=== PATIENT | female | born 1965 | race Caucasian/White ===

== ENCOUNTER → 2017-04-16 11:03 | Outpatient (POV) | payer OTHER, SELFPAY ==
[2017-04-16 11:18] VITALS: BP 142/78; PULSE 76; RESP 18; O2SAT 98; BMI 32.5
--- NOTE | 2017-04-16 11:35 | P.CONS_ITS ---
[facility] Pain Management SOAP Note Subjective:: Patient is a very pleasant 51-year-old white female that returns her pain clinic after receiving bilateral SI joint injections on 03/16/2017. Patient reports 1 week of significant relief in her bilateral hips. However, after this time her pain returned essentially in its entirety she describes the pain as constant, dull, aching in bilateral hips. She has extreme point tenderness upon examination over the bilateral SI joints. We discussed a repeat injection of the bilateral SI joints. She wishes to proceed. She rates her pain 6/10 Objective:: She is awake alert oriented ?3. In no acute distress. Flexion extension lumbar spine somewhat guarded secondary to pain. Deep tendon reflexes upper and lower extremities normal. Motor strength upper and lower extremities normal. There is no gross sensory deficit. Gait is normal. Assessment:: Bilateral sacroiliitis. Plan:: We will schedule the patient for repeat bilateral SI joint injections.
== END ==
PROVIDERS: Family Provider Emergency Medicine; PCP Emergency Medicine; Visit Provider Nurse Anesthetist, Certified Registered
DX: M46.1 Sacroiliitis, not elsewhere classified (principal)
CPT/HCPCS: 99212

== ENCOUNTER → 2017-05-11 09:38 | Day surgery (SDC) | payer OTHER, SELFPAY ==
[2017-05-11 10:29] VITALS: BP 141/77; PULSE 92; RESP 18; TEMP 36.6; O2SAT 95; BMI 32.5
--- NOTE | 2017-05-11 10:43 | HMH.PMPROC ---
- Procedure Date: 05/11/17 Time: 10:43 Anesthesiologist:: Archie Garduno MD Complications:: None Pre-procedure Diagnosis:: Sacroiliitis Post-procedure Diagnosis:: Same Indications for Procedure:: She is pleasant 51-year-old white female who we are treating for bilateral hip pain. She has had previous bilateral SI joint injections and has done well. Her pain is starting to come back. She has tenderness over both SI joints. Positive Claude's test bilaterally. We will do repeat bilateral SI joint injections today to give her some additional relief. Procedure Details:: B/L SI joint injection under fluoroscopy Informed consent was obtained and the risks and benefits of the procedure was explained to the patient. The patient was taken to the procedure room and placed prone on the procedure table. The patient was prepped using ChloraPrep. The skin and subcutaneous tissues overlying the SI joints were anesthetized using lidocaine. I placed a 22-gauge needle first in the left SI joint and second in the right SI joint. Needle placement was confirmed with dye. After this we injected 5 mL bupivacaine 0.25% and Depo-Medrol 40 mg into each SI joint. Patient tolerated the procedure well with no complication. Plan and Disposition:: We will follow-up with this patient in 2 weeks. We will reevaluate her symptoms at that time.
[2017-05-11 10:45] VITALS: BP 133/77; PULSE 78; RESP 20; O2SAT 99
[2017-05-11 10:46] VITALS: BP 135/88; PULSE 80; RESP 20; O2SAT 99
[2017-05-11 11:06] VITALS: BP 115/59; PULSE 77; RESP 18; TEMP 36.6; O2SAT 96
== END ==
PROVIDERS: Family Provider Emergency Medicine; PCP Emergency Medicine; Visit Provider Anesthesiology
DX: M46.1 Sacroiliitis, not elsewhere classified (principal)
CPT/HCPCS: 27096; G0260; J1030; Q9966

== ENCOUNTER → 2017-05-21 11:04 | Outpatient (REF) | payer OTHER, SELFPAY ==
[2017-05-21 14:00] LABS: Amphetamine/Metha Screen,Urine Negative ng/mL (<1000); Barbiturates Screen,Urine Negative ng/mL (<200); Benzodiazepines Screen,Urine Negative ng/mL (200); Cannabinoid Screen,Urine Positive ng/mL (<50); Cocaine Screen,Urine Negative ng/g (<300); Methadone Screen,Urine Negative ng/mL (<300); Opiate Screen,Urine Positive ng/mL (<300); Phencyclidine Screen,Urine Negative ng/mL (<25)
== END ==
LOC: LAB 11:04
PROVIDERS: Visit Provider Emergency Medicine
DX: Z79.899 Other long term (current) drug therapy (principal)
CPT/HCPCS: 80305

== ENCOUNTER → 2017-06-20 13:46 | Outpatient (REF) | payer OTHER, SELFPAY ==
[2017-06-20 18:44] LABS: Amphetamine/Metha Screen,Urine Negative ng/mL (<1000); Barbiturates Screen,Urine Negative ng/mL (<200); Benzodiazepines Screen,Urine Negative ng/mL (200); Cannabinoid Screen,Urine Positive ng/mL (<50); Cocaine Screen,Urine Negative ng/g (<300); Methadone Screen,Urine Negative ng/mL (<300); Opiate Screen,Urine Positive ng/mL (<300); Phencyclidine Screen,Urine Negative ng/mL (<25)
== END ==
LOC: LAB 13:46
PROVIDERS: Visit Provider Emergency Medicine
DX: Z79.899 Other long term (current) drug therapy (principal)
CPT/HCPCS: 80305

== ENCOUNTER → 2017-07-18 08:15 | Outpatient (REF) | payer OTHER, SELFPAY ==
[2017-07-18 13:38] LABS: Amphetamine/Metha Screen,Urine Negative ng/mL (<1000); Barbiturates Screen,Urine Negative ng/mL (<200); Benzodiazepines Screen,Urine Negative ng/mL (200); Cannabinoid Screen,Urine Positive ng/mL (<50); Cocaine Screen,Urine Negative ng/g (<300); Methadone Screen,Urine Negative ng/mL (<300); Opiate Screen,Urine Positive ng/mL (<300); Phencyclidine Screen,Urine Negative ng/mL (<25)
== END ==
LOC: LAB 08:15
PROVIDERS: Visit Provider Emergency Medicine
DX: Z79.899 Other long term (current) drug therapy (principal)
CPT/HCPCS: 80305

== ENCOUNTER → 2017-07-27 09:15 | Outpatient (CLI) | payer OTHER, SELFPAY ==
--- NOTE | 2017-07-27 09:38 | XR_ITS ---
XR hand RT min 3V COMPARISON: None HISTORY: Right hand pain TECHNIQUE: AP lateral and oblique views FINDINGS: The carpal bones appear intact. The metacarpals and all phalanges appear intact with no evidence of recent or old fracture. There is minor narrowing of the radiocarpal joint and there is a negative ulnar variance which can contribute to wrist pain. IMPRESSION: Grossly negative right hand, minor arthritic change of the radiocarpal joint along with negative ulnar variance
--- NOTE | 2017-07-27 09:38 | XR_ITS ---
XR shoulder RT min 2V COMPARISON: MRI scan right shoulder 02/20/2017 HISTORY: Right shoulder pain TECHNIQUE: 3 views right shoulder FINDINGS: The lateral clavicle is intact. There is a generally changes AC joint with minimal spurring superiorly and inferiorly. Humeral head and glenoid appear normal. There are no soft tissue calcifications. IMPRESSION: Mild degenerative change of the AC joint no other significant abnormality noted
[2017-07-27 09:39] LABS: Basophils # 0.1 K/mm3 (0-0.2); Basophils % 0.7 % (0.1-2.0); Eosinophils # 0.4 K/mm3 (0.0-0.4); Eosinophils % 3.3 % (0.1-12.0); Hematocrit 40.3 % (37.0-47.0); Hemoglobin 13.4 g/dL (12.2-16.2); Lymphocytes # 2.5 K/mm3 (0.7-4.5); Mean Corpuscular HGB Conc 33.3 g/dL (31.8-35.4); Mean Corpuscular Hemoglobin 31.5 pg (27.0-31.2); Mean Corpuscular Volume 94.6 fl (81-99); Mean Platelet Volume 6.5 fl (7.4-10.4); Monocytes # 0.6 K/mm3 (0.1-1.0); Monocytes % 4.9 % (1.7-9.3); Neutrophils # 7.7 K/mm3 (1.8-7.8); Neutrophils % 69.1 % (37.0-80.0); Platelet Count 487 K/mm3 (142-424); Red Blood Count 4.26 M/mm3 (4.20-5.40); Red Cell Distribution Width 12.8 % (11.5-17.5); White Blood Count 11.2 K/mm3 (4.8-10.8)
--- NOTE | 2017-07-27 09:41 | XR_ITS ---
XR chest 2V COMPARISON: PA and lateral chest 06/24/2009 HISTORY: Smoking history TECHNIQUE: PA and lateral chest FINDINGS: Borderline emphysematous changes seen with mild hyperexpansion lung lopez and flattening of the hemidiaphragms. There are subtle increased bronchovascular markings in the right lower lobe, the remainder lung lopez are clear. Cardiac size is normal and the vascularity is normal. IMPRESSION: Borderline COPD, vomiting suggesting minimal chronic bronchitis right lower lobe
[2017-07-27 10:39] LABS: Anion Gap 14.6 mEq/L (5-15); Blood Urea Nitrogen 15 mg/dL (7-18); Carbon Dioxide 28 mmol/L (21.0-32.0); Chloride 98 mmol/L (98-107); Estimated Glomerular Filt Rate 105 ml/min (>60); GFR (African American) 128 ML/MIN (>60); Glucose 93 mg/dL (74-106); Potassium 4.6 mmoL/L (3.5-5.1); Sodium 136 mmol/L (136-145)
[2017-07-27 10:46] LABS: HCG,Quantitative 1 mIU/mL
== END ==
PROVIDERS: Visit Provider Orthopaedic Surgery
DX: Z01.818 Encounter for other preprocedural examination (principal); M25.511 Pain in right shoulder; M79.641 Pain in right hand
CPT/HCPCS: 36415; 71046; 73030; 73130; 80048; 84702; 85025; 93005

== ENCOUNTER → 2017-08-17 09:31 | Outpatient (CLI) | payer OTHER, SELFPAY ==
[2017-08-17 14:13] LABS: Amphetamine/Metha Screen,Urine Negative ng/mL (<1000); Barbiturates Screen,Urine Negative ng/mL (<200); Benzodiazepines Screen,Urine Negative ng/mL (200); Cannabinoid Screen,Urine Negative ng/mL (<50); Cocaine Screen,Urine Negative ng/g (<300); Methadone Screen,Urine Negative ng/mL (<300); Opiate Screen,Urine Positive ng/mL (<300); Phencyclidine Screen,Urine Negative ng/mL (<25)
[2017-08-17 14:18] LABS: Basophils # 0.1 K/mm3 (0-0.2); Basophils % 0.6 % (0.1-2.0); Eosinophils # 0.4 K/mm3 (0.0-0.4); Eosinophils % 3.4 % (0.1-12.0); Hematocrit 37.2 % (37.0-47.0); Hemoglobin 12.3 g/dL (12.2-16.2); Lymphocytes # 2.7 K/mm3 (0.7-4.5); Lymphocytes % 25.4 K/mm3 (10-50); Mean Corpuscular HGB Conc 33.1 g/dL (31.8-35.4); Mean Corpuscular Hemoglobin 31.6 pg (27.0-31.2); Mean Corpuscular Volume 95.4 fl (81-99); Mean Platelet Volume 7.8 fl (7.4-10.4); Monocytes # 0.6 K/mm3 (0.1-1.0); Monocytes % 5.2 % (1.7-9.3); Neutrophils # 6.9 K/mm3 (1.8-7.8); Neutrophils % 65.4 % (37.0-80.0); Platelet Count 560 K/mm3 (142-424); Red Cell Distribution Width 12.9 % (11.5-17.5); White Blood Count 10.5 K/mm3 (4.8-10.8)
[2017-08-17 14:26] LABS: Alanine Aminotransferase 20 U/L (12-78); Albumin Level 3.5 gm/dL (3.4-5.0); Alkaline Phosphatase 122 U/L (46-116); Anion Gap 15.5 mEq/L (5-15); Aspartate Amino Transferase 19 U/L (15-37); Bilirubin,Total 0.2 mg/dL (0.2-1.0); Blood Urea Nitrogen 10 mg/dL (7-18); Calcium 10.1 mg/dL (8.5-10.1); Carbon Dioxide 26 mmol/L (21.0-32.0); Chloride 103 mmol/L (98-107); Chol/HDL Ratio 4.2 (1-3.5); Cholesterol 204 mg/dL (140-200); Creatinine,Serum 0.68 mg/dL (0.55-1.02); Estimated Glomerular Filt Rate 91 ml/min (>60); Free T4 (Free Thyroxine) 1.07 ng/dl (0.76-1.46); GFR (African American) 110 ML/MIN (>60); Globulin 3.4 gm/dl (1.3-3.2); Glucose 94 mg/dL (74-106); HDL Cholesterol 49 mg/dL (29-89); LDL Cholesterol 127 mg/dL (0-130); Potassium 4.5 mmoL/L (3.5-5.1); Sodium 140 mmol/L (136-145); Thyroid Stimulating Hormone 1.47 uIU/ml (0.358-3.740); Total Protein,Serum 6.9 gm/dL (6.4-8.2); Triglycerides 139 mg/dL (30-200); VLDL Cholesterol 28 mg/dL (0-40)
== END ==
PROVIDERS: Visit Provider Emergency Medicine
DX: I10 Essential (primary) hypertension (principal); Z79.891 Long term (current) use of opiate analgesic
CPT/HCPCS: 80053; 80061; 80305; 84439; 84443; 85025

== ENCOUNTER → 2017-09-14 10:50 | Outpatient (CLI) | payer OTHER, SELFPAY ==
[2017-09-14 19:24] LABS: Amphetamine/Metha Screen,Urine Negative ng/mL (<1000); Barbiturates Screen,Urine Negative ng/mL (<200); Benzodiazepines Screen,Urine Negative ng/mL (200); Cannabinoid Screen,Urine Negative ng/mL (<50); Cocaine Screen,Urine Negative ng/g (<300); Methadone Screen,Urine Negative ng/mL (<300); Opiate Screen,Urine Positive ng/mL (<300); Phencyclidine Screen,Urine Negative ng/mL (<25)
== END ==
PROVIDERS: Visit Provider Emergency Medicine
DX: Z79.899 Other long term (current) drug therapy (principal)
CPT/HCPCS: 80305

== ENCOUNTER 2017-10-02 08:49 | Outpatient (RCR) | payer OTHER, SELFPAY ==
--- NOTE | 2017-10-02 09:45 | HMH.OTOPEV ---
OT Inpatient Evaluation Rehab OT Outpatient Eval Start: 10/02/17 09:31 Freq: Status: Active Protocol: Document 10/02/17 09:32 TFRY (Rec: 10/02/17 09:43 TFRY [id number]) Electronically Signed By Lisa Clemons, OT 10/02/17 09:32 Outpatient Therapy Subjective History Subjective History THIS IS A 52 YEAR OLD RIGHT HANDED FEMALE REFERRED TO OCCUPATIONAL THERAPY PATIENT IS S/P ARTHROSCOPIC RCR, SAD, DCE, AND BICEPS TENODESIS OF RIGHT SHOULDER. PATIENT REPORTS THAT SHE HAD SURGERY ON AUGUST 06, 2017. PATIENT REPORTS THAT SHE INJURIED HER SHOULDER APPROXIMATELY 1 YEAR AGO. Chief Complaint Pain Symptom Type Ache Sharp Dull Symptoms Relieved By Rest/Positioning Heat Ice Symptoms Aggravated By Physical Activity Prior Functional Limitations None Current Functional Limitations Reaching Lifting Housework Dressing Sleeping Symptom Description Activity Dependent Level of pain today (0-10) 2 Pain scale - at its best (0-10) 1 Pain scale - at its worst (0-10) 8 Shoulder/Elbow Eval Shoulder Objective Measurements Palpation Tenderness tenderness shoulder exam standard right Shoulder Palpation Findings Tenderness Shoulder ROM Right Shoulder ROM Limitations Pain Shoulder Abduction Active Range of 60 Motion (degrees) Shoulder Abduction Passive Range of 70 Motion (degrees) Shoulder Flexion Active Range of Motion 60 (degrees) Query Text: Shoulder Flexion Passive Range of Motion 115 (degrees) Shoulder External Rotation Active Range 25 of Motion (degrees) Shoulder External Rotation Passive Range 25 of Motion (degrees) Shoulder Internal Rotation Active Range WFL of Motion (degrees) Shoulder Internal Rotation Passive Range 0 of Motion (degrees) Shoulder Extension Active Range of 30 Motion (degrees) pain with active ROM shoulder exam right standard pain with passive ROM shoulder exam right standard decreased ROM shoulder exam standard right Shoulder MMT Shoulder Strength Reason Not Measured Orthopedic Precautions E
== END 2017-10-02 08:50 | disposition home or self-care (01) ==
LOC: OT 08:49
PROVIDERS: Family Provider Emergency Medicine; PCP Emergency Medicine; Visit Provider Orthopaedic Surgery
DX: S46.011A Strain of muscle(s) and tendon(s) of the rotator cuff of right shoulder, initial encounter (principal)
CPT/HCPCS: 97165

== ENCOUNTER 2017-10-02 08:55 | Outpatient (RCR) | payer OTHER, SELFPAY | END 2017-10-03 15:05 | disposition home or self-care (01) | LOC: OT 08:55 | PROVIDERS: Family Provider Emergency Medicine; PCP Emergency Medicine; Visit Provider Orthopaedic Surgery | DX: G56.01 Carpal tunnel syndrome, right upper limb (principal) | CPT/HCPCS: 97760 ==

== ENCOUNTER → 2017-10-09 08:57 | Outpatient (POV) | payer OTHER, SELFPAY ==
[2017-10-09 09:33] VITALS: BP 142/73; PULSE 84; RESP 18; O2SAT 97; BMI 35.6
--- NOTE | 2017-10-09 13:49 | HMH.PAINSOAP ---
[facility] Pain Management SOAP Note Subjective:: She is a pleasant 52-year-old white female who presents today for follow-up. Patient had bilateral SI joint injections in the past she states she did not get much relief from that however she had recent shoulder surgery by Dr. Azevedo and she starts PT today. Patient states that a lot of her pain is up there however she is having low back and leg pain with numbness and tingling. Patient would like to try an epidural steroid injection to see if this would help with her pain. I believe that this would beneficial for her. Patient also having bilateral knee pain and was interested in the potential compounding cream to help relieve that. Patient is not on any anticoagulation therapy patient is currently in physical therapy. Patient does receive [place] 5 mg 1 p.o. twice daily and gabapentin 800 mg 1 p.o. 4 times daily from her primary care physician. Patient does have an MRI showing degenerative disc disease and bulging disks. Patient rates her pain a 6 out of 10 today. ROS General: no recent weight change, no fever, no sleep disturbances Respiratory: no cough, no shortness of air, no recurring pulmonary infections Cardiovascular/Peripheral Vascular: No chest pain, No palpitations, no edema, no shortness of breath. Gastrointestinal: no incontinence, normal bowel movements reported Genitourinary: no incontinence Musculoskeletal: Shoulder pain, back pain, leg pain Psychiatric: normal mood/ affect Neurological: [denies weakness in extremities], [denies balance issues] Objective:: Physical Exam General: Alert and oriented x3, no acute distress, pleasant and cooperative, [on room air] Lungs: Resps E/U, Symmetrical chest expansion, Eyes: PERRL Musculoskeletal: Flexion and extension of lumbar spine somewhat guarded secondary to pain, deep tendon reflexes normal, strength in upper and lower extremities [5/5], slightly antalgic gait noted, positive straight leg raise test bilaterally at 30? Neurological: speech clear, face burler equal, no gross sensory deficits Assessment:: Degenerative disc disease of the lumbar spine with lumbar radiculopathy, sacroiliitis Plan:: We will schedule an L4-L5 lumbar epidural steroid injection for this patient I believe that it would be beneficial. Patient's tried and failed anti-inflammatories, medications, physical therapy, massage therapy. Patient is not on any anticoagulation therapy. Patient is still continue to do home stretching routine. I will follow-up with the patient after her injection we will reassess her symptoms at that time. This note was dictated using voice recognition software and may contain errors or omissions
--- NOTE | 2017-10-09 13:52 | P.CONS_ITS ---
[facility] Pain Management SOAP Note Subjective:: She is a pleasant 52-year-old white female who presents today for follow-up. Patient had bilateral SI joint injections in the past she states she did not get much relief from that however she had recent shoulder surgery by Dr. Azevedo and she starts PT today. Patient states that a lot of her pain is up there however she is having low back and leg pain with numbness and tingling. Patient would like to try an epidural steroid injection to see if this would help with her pain. I believe that this would beneficial for her. Patient also having bilateral knee pain and was interested in the potential compounding cream to help relieve that. Patient is not on any anticoagulation therapy patient is currently in physical therapy. Patient does receive [place] 5 mg 1 p.o. twice daily and gabapentin 800 mg 1 p.o. 4 times daily from her primary care physician. Patient does have an MRI showing degenerative disc disease and bulging disks. Patient rates her pain a 6 out of 10 today. ROS General: no recent weight change, no fever, no sleep disturbances Respiratory: no cough, no shortness of air, no recurring pulmonary infections Cardiovascular/Peripheral Vascular: No chest pain, No palpitations, no edema, no shortness of breath. Gastrointestinal: no incontinence, normal bowel movements reported Genitourinary: no incontinence Musculoskeletal: Shoulder pain, back pain, leg pain Psychiatric: normal mood/ affect Neurological: [denies weakness in extremities], [denies balance issues] Objective:: Physical Exam General: Alert and oriented x3, no acute distress, pleasant and cooperative, [ on room air] Lungs: Resps E/U, Symmetrical chest expansion, Eyes: PERRL Musculoskeletal: Flexion and extension of lumbar spine somewhat guarded secondary to pain, deep tendon reflexes normal, strength in upper and lower extremities [5/5], slightly antalgic gait noted, positive straight leg raise test bilaterally at 30? Neurological: speech clear, fructose loader equal, no gross sensory deficits Assessment:: Degenerative disc disease of the lumbar spine with lumbar radiculopathy, sacroiliitis Plan:: We will schedule an L4-L5 lumbar epidural steroid injection for this patient I believe that it would be beneficial. Patient's tried and failed anti- inflammatories, medications, physical therapy, massage therapy. Patient is not on any anticoagulation therapy. Patient is still continue to do home stretching routine. I will follow-up with the patient after her injection we will reassess her symptoms at that time. This note was dictated using voice recognition software and may contain errors or omissions
== END ==
PROVIDERS: Family Provider Emergency Medicine; PCP Emergency Medicine; Visit Provider Clinical Nurse Specialist Family Health
DX: M46.1 Sacroiliitis, not elsewhere classified (principal); M54.16 Radiculopathy, lumbar region
CPT/HCPCS: 99212

== ENCOUNTER → 2017-10-15 11:08 | Outpatient (REF) | payer OTHER, SELFPAY ==
[2017-10-15 14:03] LABS: Amphetamine/Metha Screen,Urine Negative ng/mL (<1000); Barbiturates Screen,Urine Negative ng/mL (<200); Benzodiazepines Screen,Urine Negative ng/mL (<200); Cannabinoid Screen,Urine Positive ng/mL (<50); Cocaine Screen,Urine Negative ng/mL (<300); Methadone Screen,Urine Negative ng/mL (<300); Opiate Screen,Urine Positive ng/mL (<300); Phencyclidine Screen,Urine Negative ng/mL (<25)
== END ==
LOC: LAB 11:08
PROVIDERS: Visit Provider Emergency Medicine
DX: Z79.899 Other long term (current) drug therapy (principal)
CPT/HCPCS: 80305

== ENCOUNTER → 2017-10-23 11:27 | Outpatient (CLI) | payer OTHER, SELFPAY ==
--- NOTE | 2017-10-23 11:29 | XR_ITS ---
XR wrist LT w scaphoid HISTORY: ITS.REASON: pain ORDERING PHYSICIAN: Sera Lake PATIENT AGE: 52 years COMPARISON: None FINDINGS: No fracture or dislocation. No lytic or blastic change. There is normal mineralization.. 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 Otherwise the carpal bones appear intact and especially the the distal radius and ulna appear normal and the soft tissues are normal. Navicular appears normal. 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
== END ==
PROVIDERS: PCP Nurse Practitioner Family; Visit Provider Nurse Practitioner Family
DX: M25.532 Pain in left wrist (principal)
CPT/HCPCS: 73110

== ENCOUNTER → 2017-10-28 10:50 | Outpatient (CLI) | payer OTHER, SELFPAY ==
[2017-10-28 14:19] LABS: Uric Acid 7.9 mg/dL (2.6-7.2)
== END ==
PROVIDERS: Visit Provider Nurse Practitioner Family
DX: M25.532 Pain in left wrist (principal)
CPT/HCPCS: 36415; 84550

== ENCOUNTER → 2017-11-13 11:18 | Outpatient (REF) | payer OTHER, SELFPAY ==
[2017-11-13 14:09] LABS: Amphetamine/Metha Screen,Urine Negative ng/mL (<1000); Barbiturates Screen,Urine Negative ng/mL (<200); Benzodiazepines Screen,Urine Negative ng/mL (<200); Cannabinoid Screen,Urine Positive ng/mL (<50); Cocaine Screen,Urine Negative ng/mL (<300); Methadone Screen,Urine Negative ng/mL (<300); Opiate Screen,Urine Positive ng/mL (<300); Phencyclidine Screen,Urine Negative ng/mL (<25)
== END ==
LOC: LAB 11:18
PROVIDERS: Visit Provider Emergency Medicine
DX: Z79.899 Other long term (current) drug therapy (principal)
CPT/HCPCS: 80305

== ENCOUNTER → 2017-12-14 09:26 | Outpatient (REF) | payer OTHER, SELFPAY ==
[2017-12-14 18:52] LABS: Amphetamine/Metha Screen,Urine Negative ng/mL (<1000); Barbiturates Screen,Urine Negative ng/mL (<200); Benzodiazepines Screen,Urine Negative ng/mL (<200); Cannabinoid Screen,Urine Positive ng/mL (<50); Cocaine Screen,Urine Negative ng/mL (<300); Methadone Screen,Urine Negative ng/mL (<300); Opiate Screen,Urine Positive ng/mL (<300); Phencyclidine Screen,Urine Negative ng/mL (<25)
== END ==
LOC: LAB 09:26
PROVIDERS: Visit Provider Emergency Medicine
DX: Z79.899 Other long term (current) drug therapy (principal)
CPT/HCPCS: 80305

== ENCOUNTER → 2017-12-25 10:09 | Outpatient (POV) | payer OTHER, SELFPAY ==
[2017-12-25 10:38] VITALS: BP 152/87; PULSE 76; RESP 76; TEMP 36.5; O2SAT 97; BMI 35.2
--- NOTE | 2017-12-25 11:07 | HMH.PAINSOAP ---
[facility] Pain Management SOAP Note Subjective:: Patient is a pleasant 52-year-old white female who presents today for follow-up after lumbar epidural steroid injection. Patient did not have any relief of this. Patient states her back pain is an 8 out of 10 today. Patient is currently on [place] and gabapentin from her primary care physician. Patient does not have any updated MRI imaging. I do believe that a new MRI may be beneficial given her increase in pain. ROS General: no recent weight change, no fever, no sleep disturbances Respiratory: no cough, no shortness of air, no recurring pulmonary infections Cardiovascular/Peripheral Vascular: No chest pain, No palpitations, no edema, no shortness of breath. Gastrointestinal: no incontinence, normal bowel movements reported Genitourinary: no incontinence Musculoskeletal: Back pain, leg pain Psychiatric: normal mood/ affect Neurological: [denies weakness in extremities], [denies balance issues] Objective:: Physical Exam General: Alert and oriented x3, no acute distress, pleasant and cooperative, [on room air] Lungs: Resps E/U, Symmetrical chest expansion Eyes: PERRL Musculoskeletal: Flexion and extension of lumbar spine somewhat guarded secondary to pain, deep tendon reflexes normal, strength in upper and lower extremities [5/5], slightly antalgic gait noted, bilateral straight leg raise test positive at 30? Neurological: speech clear, electron beam photo mask maker equal, no gross sensory deficits Assessment:: Degenerative disc disease lumbar spine with radiculopathy Plan:: We will send the patient for an updated MRI to determine any new pathology. She may be in need of a surgical consult. I will follow-up with her after her MRI. This note was dictated using voice recognition software and may contain errors or omissions
--- NOTE | 2017-12-25 11:10 | P.CONS_ITS ---
[facility] Pain Management SOAP Note Subjective:: Patient is a pleasant 52-year-old white female who presents today for follow-up after lumbar epidural steroid injection. Patient did not have any relief of this. Patient states her back pain is an 8 out of 10 today. Patient is currently on [place] and gabapentin from her primary care physician. Patient does not have any updated MRI imaging. I do believe that a new MRI may be beneficial given her increase in pain. ROS General: no recent weight change, no fever, no sleep disturbances Respiratory: no cough, no shortness of air, no recurring pulmonary infections Cardiovascular/Peripheral Vascular: No chest pain, No palpitations, no edema, no shortness of breath. Gastrointestinal: no incontinence, normal bowel movements reported Genitourinary: no incontinence Musculoskeletal: Back pain, leg pain Psychiatric: normal mood/ affect Neurological: [denies weakness in extremities], [denies balance issues] Objective:: Physical Exam General: Alert and oriented x3, no acute distress, pleasant and cooperative, [on room air] Lungs: Resps E/U, Symmetrical chest expansion Eyes: PERRL Musculoskeletal: Flexion and extension of lumbar spine somewhat guarded secondary to pain, deep tendon reflexes normal, strength in upper and lower extremities [5/5], slightly antalgic gait noted, bilateral straight leg raise test positive at 30? 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 She may be in need of a surgical consult. I will follow-up with her after her MRI. This note was dictated using voice recognition software and may contain errors or omissions
== END ==
PROVIDERS: Family Provider Emergency Medicine; PCP Nurse Practitioner Family; Visit Provider Clinical Nurse Specialist Family Health
DX: M51.16 Intervertebral disc disorders with radiculopathy, lumbar region (principal)
CPT/HCPCS: 99202

== ENCOUNTER → 2018-01-01 07:41 | Outpatient (CLI) | payer OTHER, SELFPAY ==
--- NOTE | 2018-01-01 07:50 | MR_ITS ---
MR lumbar spine wo con, MR 3-d myelogram/MRCP HISTORY: LBP but worse on the RT side. Bilateral leg pain, numbness, and tingling. ITS.REASON: BACK PAIN ORDERING PHYSICIAN: Gena Wadsworth PATIENT AGE: 52 years Comparison: MRI 01-05-17 TECHNIQUE: Standard multiplanar multiecho sequences are performed without contrast. 3-D MIP and myelographic images are also rendered and reviewed FINDINGS: Normal alignment. The spinal cord ends at the L1 level. T11-T12: Mild degenerative disc disease with mild facet and ligamentum flavum hypertrophy and minimal right lateral recess narrowing as before. T12-L1: Unremarkable. L1-L2: Unremarkable. L2-L3: Minimal endplate irregularity with minimal bulging of the disc anteriorly. L3-L4: Unremarkable. L4-5: Mild concentric bulging disc with minimal broad-based central disc protrusion slightly eccentric toward the right with a small posterior annular fissure. This does abut the injury aspect of the right L5 nerve root. There is some mild facet and ligamentum flavum hypertrophy with small amount fluid in the facet joint on the left at this level. There is mild bilateral foraminal narrowing. L5-S1: Degenerative disc disease with bulging disc eccentric towards the right along with facet and ligamentum flavum hypertrophy with moderate to severe right-sided foraminal narrowing and moderate left foraminal narrowing. Right lateral recess narrowing is also present from facet hypertrophic change and the bulging disc abutting the right S1 nerve root anteriorly. No extruded herniated disc are evident. No canal stenosis. IMPRESSION: 1. Multilevel lumbar spondylosis as described above. 2. L4-5: Mild concentric bulging disc with minimal broad-based central disc protrusion slightly eccentric toward the right with a small posterior annular fissure. This does abut the injury aspect of the right L5 nerve root. There is some mild facet and ligamentum flavum hypertrophy with small amount fluid in the facet joint on the left at this level. There is mild bilateral foraminal narrowing. 3. L5-S1: Degenerative disc disease with bulging disc eccentric towards the right with small broad-based right paracentral disc protrusion along with facet and ligamentum flavum hypertrophy with moderate to severe right-sided foraminal narrowing and moderate left foraminal narrowing. Right lateral recess narrowing is also present from facet hypertrophic change and the bulging disc abutting the right S1 nerve root anteriorly. 4. Overall no significant change compared to the previous exam
== END ==
PROVIDERS: Family Provider Emergency Medicine; PCP Nurse Practitioner Family; Visit Provider Clinical Nurse Specialist Family Health
DX: M54.5 Low back pain (principal)
CPT/HCPCS: 72148; 76376

== ENCOUNTER → 2018-01-08 10:19 | Outpatient (POV) | payer OTHER, SELFPAY ==
[2018-01-08 10:31] VITALS: BP 170/83; PULSE 81; RESP 18; O2SAT 98; BMI 35.2
--- NOTE | 2018-01-08 10:56 | P.CONS_ITS ---
[facility] Pain Management SOAP Note Subjective:: Is a pleasant 52-year-old white female who presents today for follow-up after new MRI. Patient has multilevel lumbar spondylosis and some bulging disks. Patient and I discussed medial branch blocks. Patient has had epidurals with not a lot of success. Patient states that any twisting motion makes her pain worse. Patient has not seen a neurosurgeon. Patient is receiving medication from her primary care physician. She rates her pain a 6 out of 10 today. ROS General: no recent weight change, no fever, no sleep disturbances Respiratory: no cough, no shortness of air, no recurring pulmonary infections Cardiovascular/Peripheral Vascular: No chest pain, No palpitations, no edema, no shortness of breath. Gastrointestinal: no incontinence, normal bowel movements reported Genitourinary: no incontinence Musculoskeletal: Back pain Psychiatric: normal mood/ affect Neurological: [denies weakness in extremities], [denies balance issues] Objective:: Physical Exam General: Alert and oriented x3, no acute distress, pleasant and cooperative, [on room air] Lungs: Resps E/U, Symmetrical chest expansion, Eyes: PERRL Musculoskeletal: Flexion and extension of lumbar spine somewhat guarded secondary to pain, deep tendon reflexes normal, strength in upper and lower extremities [5/5], [abnormal gait noted] positive Kemps test Neurological: speech clear, biofuels plant manager equal, no gross sensory deficits Assessment:: Degenerative disc disease lumbar spine with lumbar spondylosis Plan:: We will set up the patient to be evaluated by Dr. Chance we will also ensure that she has refills on her compounding cream. We will also set her up for a medial branch block at L3-L4 L4-L5 L5-S1 bilaterally. I will follow-up with the patient after her injection. Patient is tried and failed other conservative measures. Patient also doing a home stretching routine. Patient is not on any blood thinners. This note was dictated using voice recognition software and may contain errors or omissions
== END ==
PROVIDERS: Family Provider Emergency Medicine; PCP Nurse Practitioner Family; Visit Provider Clinical Nurse Specialist Family Health
DX: M51.36 Other intervertebral disc degeneration, lumbar region (principal); M47.896 Other spondylosis, lumbar region
CPT/HCPCS: 99213

== ENCOUNTER → 2018-01-11 08:55 | Outpatient (REF) | payer OTHER, SELFPAY ==
[2018-01-11 18:35] LABS: Amphetamine/Metha Screen,Urine Negative ng/mL (<1000); Barbiturates Screen,Urine Negative ng/mL (<200); Benzodiazepines Screen,Urine Negative ng/mL (<200); Cannabinoid Screen,Urine Positive ng/mL (<50); Cocaine Screen,Urine Negative ng/mL (<300); Methadone Screen,Urine Negative ng/mL (<300); Opiate Screen,Urine Positive ng/mL (<300); Phencyclidine Screen,Urine Negative ng/mL (<25)
== END ==
LOC: LAB 08:55
PROVIDERS: Visit Provider Emergency Medicine
DX: Z79.899 Other long term (current) drug therapy (principal)
CPT/HCPCS: 80305

== ENCOUNTER → 2018-02-11 13:48 | Outpatient (CLI) | payer OTHER, SELFPAY ==
[2018-02-11 15:49] LABS: Amphetamine/Metha Screen,Urine Negative ng/mL (<1000); Barbiturates Screen,Urine Negative ng/mL (<200); Benzodiazepines Screen,Urine Negative ng/mL (<200); Cannabinoid Screen,Urine Positive ng/mL (<50); Cocaine Screen,Urine Negative ng/mL (<300); Methadone Screen,Urine Negative ng/mL (<300); Opiate Screen,Urine Positive ng/mL (<300); Phencyclidine Screen,Urine Negative ng/mL (<25)
== END ==
PROVIDERS: PCP Emergency Medicine; Visit Provider Emergency Medicine
DX: Z79.899 Other long term (current) drug therapy (principal)
CPT/HCPCS: 80305

== ENCOUNTER → 2018-03-12 08:29 | Outpatient (POV) | payer OTHER, SELFPAY ==
[2018-03-12 08:50] VITALS: BP 115/58; PULSE 78; RESP 18; O2SAT 98; BMI 35.5
--- NOTE | 2018-03-12 09:02 | P.CONS_ITS ---
[facility] Pain Management SOAP Note Subjective:: Is a pleasant 52-year-old white female who presents today for follow-up after medial branch blocks. Patient has not had good relief with any of her injective therapy. Patient and I had a long discussion in regards to neuro stimulation. Patient is interested in following up with this. Patient would like to be more functional. Patient is also utilizing a compound cream that she states helps her greatly. Patient rates her pain a 9 out of 10 today mostly in her low back and down her legs. ROS General: no recent weight change, no fever, no sleep disturbances Respiratory: no cough, no shortness of air, no recurring pulmonary infections Cardiovascular/Peripheral Vascular: No chest pain, No palpitations, no edema, no shortness of breath. Gastrointestinal: no incontinence, normal bowel movements reported Genitourinary: no incontinence Musculoskeletal: Back pain, leg pain Psychiatric: normal mood/ affect Neurological: [denies weakness in extremities], [denies balance issues] Objective:: Physical Exam General: Alert and oriented x3, no acute distress, pleasant and cooperative, [on room air] Lungs: Resps E/U, Symmetrical chest expansion, Eyes: PERRL Musculoskeletal: Flexion and extension of lumbar spine somewhat guarded secondary to pain, deep tendon reflexes normal, strength in upper and lower extremities [5/5], [abnormal gait noted] Neurological: speech clear, filament cutter equal, no gross sensory deficits Assessment:: Lumbar degenerative disc disease with lumbar spondylosis and facet arthropathy Plan:: We will start the process and have a neurostimulator trial. I discussed this with the patient and gave her information in regards to it. I will follow-up with her after her trial. This note was dictated using voice recognition software and may contain errors or omissions
== END ==
PROVIDERS: PCP Emergency Medicine; Visit Provider Clinical Nurse Specialist Family Health
DX: M51.36 Other intervertebral disc degeneration, lumbar region (principal); M47.896 Other spondylosis, lumbar region; M54.06 Panniculitis affecting regions of neck and back, lumbar region
CPT/HCPCS: 99213

== ENCOUNTER → 2018-03-12 13:25 | Outpatient (CLI) | payer OTHER, SELFPAY ==
[2018-03-12 14:28] LABS: Amphetamine/Metha Screen,Urine Negative ng/mL (<1000); Barbiturates Screen,Urine Negative ng/mL (<200); Benzodiazepines Screen,Urine Negative ng/mL (<200); Cannabinoid Screen,Urine Positive ng/mL (<50); Cocaine Screen,Urine Negative ng/mL (<300); Methadone Screen,Urine Negative ng/mL (<300); Opiate Screen,Urine Positive ng/mL (<300); Phencyclidine Screen,Urine Negative ng/mL (<25)
== END ==
PROVIDERS: Visit Provider Emergency Medicine
DX: Z79.899 Other long term (current) drug therapy (principal)
CPT/HCPCS: 80305

== ENCOUNTER → 2018-04-12 13:55 | Outpatient (CLI) | payer OTHER, SELFPAY ==
[2018-04-12 15:01] LABS: Amphetamine/Metha Screen,Urine Negative ng/mL (<1000); Barbiturates Screen,Urine Negative ng/mL (<200); Benzodiazepines Screen,Urine Negative ng/mL (<200); Cannabinoid Screen,Urine Positive ng/mL (<50); Cocaine Screen,Urine Negative ng/mL (<300); Methadone Screen,Urine Negative ng/mL (<300); Opiate Screen,Urine Positive ng/mL (<300); Phencyclidine Screen,Urine Negative ng/mL (<25)
== END ==
PROVIDERS: Visit Provider Emergency Medicine
DX: Z79.899 Other long term (current) drug therapy (principal)
CPT/HCPCS: 80305

== ENCOUNTER → 2018-05-04 12:23 | Outpatient (CLI) | payer OTHER, SELFPAY ==
--- NOTE | 2018-05-04 12:29 | XR_ITS ---
XR foot wt bearing LT 3V, XR foot wt bearing RT 3V, XR ankle wt bearing LT min 3V, XR ankle wt bearing RT min 3V Ordering Physician: Amina Davis DPM Patient Age: 52 years: Female HISTORY: ITS.REASON: pain bilateral foot and ankle pain. Weightbearing. History of bone spur surgery left foot. & History elevated uric acid TECHNIQUE: Left ANKLE 3 views.Weightbearing Left FOOT 3 viewsWeightbearing Right ANKLE 3 viewsWeightbearing RIGHT FOOT 3 viewsWeightbearing COMPARISON : ======= Left ANKLE : 3 views with weightbearing performed.. Ankle mortise intact and well-maintained with normal relationships. Dome of talus intact. Medial and lateral malleolus intact. Some minimal calcification throughout the tip the lateral malleolus may reflect old trauma. . ====== Left FOOT : 3 views with weightbearing Left foot appears intact with no erosions. Joint spaces well-maintained. Bones well mineralized. . There is a Plantar calcaneal spur on the left measuring over 11 mm length... ======= Right ANKLE 3 views with weightbearing. The ankle mortise appears intac and well maintained. Dome Of talus intact. lateral view shows a slightly generous contour to the posterior talus, most likely reflecting anatomic variation perhaps accentuated by this slight rotation lateral image today Small osseous density off the tip the medial malleolus could reflect old trauma versus tiny accessory ossicle RIGHT FOOT 3 views with weightbearing. Right foot appears intact with normal relationships. No erosions. Joint spaces well-maintained bones well mineralized. Small symmetric accessory ossicle at the lateral margin of the cuboid bilaterally. . No plantar calcaneal spurs in the right. And may have been previously resected as suggested by history IMPRESSION: 1. Right Foot and Ankle Intact. .There is a generous plantar calcaneal spur measuring up to 11 mm length. . other minor observations in body of report--& includes noting mild prominence in the contour towards the posterior dome of talus. Likely merely anatomical variant. 2 Left Foot and Ankle Intact. Suspect there may have been resection of plantar calcaneal spur on the left. -None evident. 3. Note history of elevated uric acid. No gout evident radiographically.
== END ==
PROVIDERS: PCP Emergency Medicine; Visit Provider Podiatrist
DX: M25.572 Pain in left ankle and joints of left foot (principal)
CPT/HCPCS: 73610; 73630

== ENCOUNTER → 2018-05-07 09:08 | Outpatient (POV) | payer OTHER, SELFPAY ==
[2018-05-07 09:09] VITALS: BP 120/72; PULSE 74; RESP 18; O2SAT 99; BMI 35.6
--- NOTE | 2018-05-07 09:22 | HMH.PAINSOAP ---
[facility] Pain Management SOAP Note Subjective:: Is a 52-year-old white female who presents today to discuss moving forward with a neurostimulator. She is uninterested at this time to do that. Patient would like to be seen by a neurosurgeon. Patient does have a recent MRI. Patient would like to be seen at [facility]. She rates her pain today an 8 out of 10 ?ROS General: no recent weight change, no fever, no sleep disturbances Respiratory: no cough, no shortness of air, no recurring pulmonary infections Cardiovascular/Peripheral Vascular: No chest pain, No palpitations, no edema, no shortness of breath. Gastrointestinal: no incontinence, normal bowel movements reported Genitourinary: no incontinence Musculoskeletal: Back pain, leg pain Psychiatric: normal mood/ affect Neurological: [denies weakness in extremities], [denies balance issues] Objective:: Physical Exam General: Alert and oriented x3, no acute distress, pleasant and cooperative, [on room air] Lungs: Resps E/U, Symmetrical chest expansion, Eyes: PERRL Musculoskeletal: Flexion and extension of lumbar spine somewhat guarded secondary to pain, deep tendon reflexes normal, strength in upper and lower extremities [5/5], slightly antalgic gait noted Neurological: speech clear, shearer printed circuit boards equal, no gross sensory deficits Assessment:: Degenerative disc disease lumbar spine with lumbar radiculopathy Plan:: We will send the patient to Dr. Chance here at [facility]. I will follow-up with her after this. I did discuss with her taking her disc to the appointment. Dr. Garduno has reviewed this note and agrees with this plan of care. This note was dictated using voice recognition software and may contain errors or omissions
--- NOTE | 2018-05-07 09:42 | P.CONS_ITS ---
[facility] Pain Management SOAP Note Subjective:: Is a 52-year-old white female who presents today to discuss moving forward with a neurostimulator. She is uninterested at this time to do that. Patient would like to be seen by a neurosurgeon. Patient does have a recent MRI. Patient would like to be seen at [facility]. She rates her pain today an 8 out of 10 ?ROS General: no recent weight change, no fever, no sleep disturbances Respiratory: no cough, no shortness of air, no recurring pulmonary infections Cardiovascular/Peripheral Vascular: No chest pain, No palpitations, no edema, no shortness of breath. Gastrointestinal: no incontinence, normal bowel movements reported Genitourinary: no incontinence Musculoskeletal: Back pain, leg pain Psychiatric: normal mood/ affect Neurological: [denies weakness in extremities], [denies balance issues] Objective:: Physical Exam General: Alert and oriented x3, no acute distress, pleasant and cooperative, [on room air] Lungs: Resps E/U, Symmetrical chest expansion, Eyes: PERRL Musculoskeletal: Flexion and extension of lumbar spine somewhat guarded secondary to pain, deep tendon reflexes normal, strength in upper and lower extremities [5/5], slightly antalgic gait noted Neurological: speech clear, painter ordnance equal, no gross sensory deficits Assessment:: Degenerative disc disease lumbar spine with lumbar radiculopathy Plan:: We will send the patient to Dr. Chance here at [facility]. I will follow-up with her after this. I did discuss with her taking her disc to the appointment. Dr. Garduno has reviewed this note and agrees with this plan of care. This note was dictated using voice recognition software and may contain errors or omissions
== END ==
PROVIDERS: PCP Emergency Medicine; Visit Provider Clinical Nurse Specialist Family Health
DX: M51.16 Intervertebral disc disorders with radiculopathy, lumbar region (principal)
CPT/HCPCS: 99213

== ENCOUNTER → 2018-06-07 17:50 | Outpatient (CLI) | payer OTHER, SELFPAY ==
[2018-06-07 19:24] LABS: Amphetamine/Metha Screen,Urine Negative ng/mL (<1000); Barbiturates Screen,Urine Negative ng/mL (<200); Benzodiazepines Screen,Urine Negative ng/mL (<200); Cannabinoid Screen,Urine Positive ng/mL (<50); Cocaine Screen,Urine Negative ng/mL (<300); Methadone Screen,Urine Negative ng/mL (<300); Opiate Screen,Urine Positive ng/mL (<300); Phencyclidine Screen,Urine Negative ng/mL (<25)
== END ==
PROVIDERS: Visit Provider Emergency Medicine
DX: M54.9 Dorsalgia, unspecified (principal); Z79.891 Long term (current) use of opiate analgesic
CPT/HCPCS: 80305

== ENCOUNTER → 2018-09-09 08:47 | Outpatient (POV) | payer OTHER, SELFPAY ==
[2018-09-09 09:08] VITALS: BP 120/57; PULSE 84; RESP 18; O2SAT 98; BMI 36.9
--- NOTE | 2018-09-09 09:31 | P.CONS_ITS ---
[facility] Pain Management SOAP Note Subjective:: Patient is a pleasant 53-year-old white female who presents today to discuss next plan of action after seeing a neurosurgeon. She was deemed not a surgical candidate. Patient has had multiple epidural injections with no long-term relief. Most of her pain is her low back and bilateral legs. Patient is tried and failed physical therapy. She is continuing a home stretching program however her pain is becoming worse and worse. She utilizes a TENS unit 4-5 times a week. Patient is currently on gabapentin 800 mg 1 p.o. 4 times daily and [place] 5 mg 1 p.o. 3 times daily from her primary care physician. ROS General: no recent weight change, no fever, no sleep disturbances Respiratory: no cough, no shortness of air, no recurring pulmonary infections Cardiovascular/Peripheral Vascular: No chest pain, No palpitations, no edema, no shortness of breath. Gastrointestinal: no incontinence, normal bowel movements reported Genitourinary: no incontinence Musculoskeletal: Back pain, leg pain Psychiatric: normal mood/ affect Neurological: [denies weakness in extremities], [denies balance issues] Objective:: Physical Exam General: Alert and oriented x3, no acute distress, pleasant and cooperative, [on room air] Lungs: Resps E/U, Symmetrical chest expansion, Eyes: PERRL Musculoskeletal: Flexion and extension of lumbar spine somewhat guarded secondary to pain, deep tendon reflexes normal, strength in upper and lower extremities [5/5], [abnormal gait noted] Neurological: speech clear, delivery of shopping news equal, no gross sensory deficits Assessment:: 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 Patient will be sent for psychological evaluation to determine if she is a good candidate. Not on any anticoagulation therapy. Dr. Garduno has reviewed this note and agrees with this plan of care. This note was dictated using voice recognition software and may contain errors or omissions
== END ==
PROVIDERS: PCP Emergency Medicine; Visit Provider Clinical Nurse Specialist Family Health
DX: M51.16 Intervertebral disc disorders with radiculopathy, lumbar region (principal); G57.73 Causalgia of bilateral lower limbs
CPT/HCPCS: 99212

== ENCOUNTER → 2018-10-02 13:48 | Outpatient (CLI) | payer OTHER, SELFPAY ==
[2018-10-02 14:52] LABS: Amphetamine/Metha Screen,Urine Negative ng/mL (<1000); Barbiturates Screen,Urine Negative ng/mL (<200); Benzodiazepines Screen,Urine Negative ng/mL (<200); Cannabinoid Screen,Urine Positive ng/mL (<50); Cocaine Screen,Urine Negative ng/mL (<300); Methadone Screen,Urine Negative ng/mL (<300); Opiate Screen,Urine Positive ng/mL (<300); Phencyclidine Screen,Urine Negative ng/mL (<25)
== END ==
PROVIDERS: Visit Provider Emergency Medicine
DX: Z79.899 Other long term (current) drug therapy (principal)
CPT/HCPCS: 80305

== ENCOUNTER 2018-10-24 09:35 | Observation (INO) ==
--- NOTE | 2018-10-24 10:04 | Consult Report ---
History of Present Illness Consult date: 10/24/18 Requesting physician: Nicolas Rivera Consult reason: chest pain Chief complaint: chest pain, SOA Additional Medical History:: 1. Tobacco use, started age 17, continued 2. Hypertension 3. Hyperlipidemia 4. Strong family history for coronary artery disease in her mother in her late 50s early 60s 5. Obesity 6. GERD 7. Anxiety/Depression History of present illness: 53-year-old white female tobacco user with history of hypertension and hyperlipidemia and strong family history of coronary artery disease presented to Dr. Rivera's office today for evaluation of progressive exertional chest tightness, shortness of breath and bilateral arm discomfort over the last 1 to 2 weeks. She does note increasing exertional shortness of breath over the last several months despite losing a few pounds intentionally. Patient does relate to eating some fast food and drinking sodas but denies any significant lower extremity edema. No previous cardiac history. No recent nausea, vomiting or diarrhea. Due to the nature of the symptoms patient was sent to the hospital for unstable angina with cardiology evaluation for recommendations and treatment. [facility] History Medical History: Reports:: Anxiety, Chronic Obstructive Pulmonary Disease (COPD), Depression, Gastroesophageal Reflux Disease(GERD), Hyperlipidemia, Hypertension Denies:: Cancer, Diabetes Mellitus Type 1, Diabetes Mellitus Type 2, MRSA, Seizures *Have you ever received a pneumonia vaccine?: No *Have you received a flu vaccine this season?: Yes Other Medical History: Reports: Other. Denies: Blood Transfusion Reaction Laterality Cases: Other Surgeries: Yes: No Previous Surgery, , Hysterectomy-Total, Tubal Ligation, Other Amputation: No Fractures: Yes (ankle-lt) - *Social History Smoking Status: Current every day smoker Tobacco Type: cigarettes # Packs/Day (cigarettes): 1 Alcohol Intake: current Alcohol Intake Frequency:: holidays/special occasions only Substance Use Type: denies use *Occupational Status:: employed Housing: house Household Members: spouse *Travel in the last 8 weeks: Inside the [place] - Psychiatric History Pschychiatric History:: Reports:: Anxiety, Depression Family Hx:: Asthma, Cancer, Diabetes, Hypertension, Thyroid Disorder Meds Home Medications Medication Instructions Recorded Confirmed Type Lisinopril/Hydrochlorothiazide 1 tab PO DAILY 02/08/18 10/24/18 History [Lisinopril-Hctz 20-25 mg Tab] atorvastatin 40 mg tablet 40 mg PO QDAY #90 tab 07/02/18 10/24/18 Rx gabapentin 800 mg tablet 800 mg PO QID #120 tab 10/02/18 10/24/18 Rx hydrocodone 5 mg-acetaminophen 325 1 tab PO TID PRN #90 tab 10/02/18 10/24/18 Rx mg tablet ALBUTEROL HFA MDI 18GM MG See Rx Instructions .ROUTE 10/09/18 10/24/18 Rx INHALANT .COMPLEX #18 unspecified budesonide-formoterol HFA 160 2 puff INHALATION BID #10.2 g 10/23/18 10/24/18 Rx mcg-4.5 mcg/actuation aerosol inhaler paroxetine 40 mg tablet 40 mg PO DAILY #90 tab 10/23/18 10/24/18 Rx Allergies Allergy/AdvReac Type Severity Reaction Status Date / Time acetaminophen Allergy Intermediate Verified 10/24/18 08:35 [From EXCEDRIN TENSION HEADACHE] aspirin [ASPIRIN] Allergy Intermediate Verified 10/24/18 08:35 caffeine Allergy Intermediate Verified 10/24/18 08:35 [From EXCEDRIN TENSION HEADACHE] ibuprofen [IBUPROFEN] Allergy Unknown Verified 10/24/18 08:35 Androgenic Anabolic Steroid Allergy blisters Verified 10/24/18 08:35 Review of Systems - *Cardiovascular Reports chest pain, Reports shortness of breath with activity - *Respiratory Reports shortness of breath with activity, Denies cough - *Gastrointestinal Reports heartburn, Denies loose stools, Denies vomiting - *Genitourinary Denies blood in urine - *Musculoskeletal Denies joint pain, Denies back pain - *Neurologic Denies unsteadiness, Denies dizziness Exam - *Routine HEENT Exam Head: Present: normocephalic Eye: Present: EOMI, PERRL ENT: Present: mucous membranes moist - *Routine Neck Exam Present: supple. Absent: JVD, carotid bruit - *Routine Respiratory Exam Present: CTA bilaterally. Absent: accessory muscle use, rales, rhonchi, wheezes - *Routine Cardiovascular Exam Present: RRR. Absent: murmur, gallop, rubs - *Routine Abdominal Exam Present: soft. Absent: tenderness, distended, guarding - *Routine Extremities Exam Absent: edema, calf tenderness - *Routine Neurological Exam Present: alert, oriented X3, moving all extremities Assessment and Plan (1) Unstable angina pectoris Current visit: Yes Status: Acute Category: Medical Code(s): I20.0 - Unstable angina (2) Hyperlipidemia Current visit: Yes Status: Acute Category: Medical Code(s): E78.5 - Hyperlipidemia, unspecified (3) Family history of coronary artery disease in mother Current visit: Yes Status: Acute Category: Medical Code(s): Z82.49 - Family history of ischemic heart disease and other diseases of the circulatory system (4) COPD (chronic obstructive pulmonary disease) Current visit: No Status: Acute Category: Medical Code(s): J44.9 - Chronic obstructive pulmonary disease, unspecified (5) Hypertension Current visit: No Status: Acute Category: Medical Code(s): I10 - Essential (primary) hypertension (6) Obesity (BMI 30-39.9) Current visit: No Status: Acute Category: Medical Code(s): E66.9 - Obesity, unspecified (7) Tobacco use Current visit: No Status: Acute Category: Medical Code(s): Z72.0 - Tobacco use - Assessment and plan all Dx Assessment and Plan for all problems:: 1. Due to the unstable nature of the patient's symptoms, recommend proceeding with left heart catheterization today. The procedure, risks and benefits were explained to the patient. She agrees to proceed. 2. Echocardiogram has been ordered and is pending at this time. 3. Further recommendations to follow pending above results.
[2018-10-24 10:56] LABS: Basophils # 0.1 K/mm3 (0-0.2); Basophils % 0.6 % (0.1-2.0); Eosinophils # 0.2 K/mm3 (0.0-0.4); Eosinophils % 2.1 % (0.1-12.0); Hematocrit 39.7 % (37.0-47.0); Hemoglobin 12.9 g/dL (12.2-16.2); Lymphocytes # 2.6 K/mm3 (0.7-4.5); Lymphocytes % 25.3 % (10-50); Mean Corpuscular HGB Conc 32.5 g/dL (31.8-35.4); Mean Platelet Volume 6.5 fl (7.4-10.4); Monocytes # 0.5 K/mm3 (0.1-1.0); Monocytes % 5.2 % (1.7-9.3); Neutrophils # 6.8 K/mm3 (1.8-7.8); Neutrophils % 66.8 % (37.0-80.0); Platelet Count 517 K/mm3 (142-424); Red Blood Count 4.32 M/mm3 (4.20-5.40); Red Cell Distribution Width 13.3 % (11.5-17.5); White Blood Count 10.1 K/mm3 (4.8-10.8)
[2018-10-24 11:00] LABS: Anion Gap 14.2 mEq/L (5-15); Calcium 9.5 mg/dL (8.5-10.1); Chol/HDL Ratio 3.5 (1-3.5)
--- NOTE | 2018-10-24 15:26 | Cardiology Report ---
PROCEDURE: 2-D M-mode and color Doppler study INDICATIONS FOR THE TEST: Chest pain X COPD Heart Murmur Tobacco SmokingX Palpitations Fatigue Syncope Edema HypertensionXDiabetes Mellitus Rheumatic Fever SOBXDOEXObesityXHyperlipidemiaX Family History HDX Additional History PATIENT INFORMATION HEIGHT: 66 WEIGHT:223 GENDER: Female B/P:138/80 2-D/M-MODE INTERPRETATION: 2-D MEASUREMENTS OBSERVED VALUES IN CMS Right Ventricular Dimension (RVDd) 3.5 Interventricular Septum (Thickness)(IVsd) 1.1 Left Ventricular Internal Dimensions(LVIDd) 4.9 Left Ventricular Posterior Wall (Thickness)(LVPWd) 1.0 Aortic Root 3.0 Aortic Cusp Separation 1.5 Left Atrial Dimensions (LAD) 3.9 2D 1. Left atrium is mildly enlarged, left ventricle is normal size, mild concentric left ventricular hypertrophy, visually estimated ejection fraction 55% with no regional wall motion abnormality. 2. The right atrium and right ventricle are mildly enlarged with normal contractility. 3. The aortic valve is minimally thickened and fibrosed. 4. The mitral and tricuspid valve is grossly normal. 5. The pulmonic valve is poorly visualized . 6. No significant pericardial effusion noted. DOPPLER INTERROGATION: Doppler interrogation of the aortic, mitral and tricuspid valvular presence of mild mitral and tricuspid regurgitation, tricuspid dictation jet velocity is inadequate for calculation of the right ventricular systolic pressure, diastolic parameters are within normal range. CONCLUSION: 1. Mildly enlarged left atrium, normal left ventricular size, mild concentric left ventricular hypertrophy, visually estimated ejection fraction 55% with no regional wall motion abnormality, diastolic parameters are within normal range. 2. Mildly enlarged right ventricle with normal contractility. 3. Mild mitral and tricuspid regurgitation 4. No significant pericardial effusion noted.
--- NOTE | 2018-10-24 21:26 | History & Physical Report ---
*Admission Date: 10/24/18 *Chief complaint: chest pain *History of present illness: this wf presented today with progressive chest tightness over the last 2 weeks with sig risk factors - pt was admitted with unstable angina and seen by card Tobacco use, started age 17, continued 2. Hypertension 3. Hyperlipidemia 4. Strong family history for coronary artery disease in her mother in her late 50s early 60s 5. Obesity 6. GERD 7. Anxiety/Depression History of present illness: 53-year-old white female tobacco user with history of hypertension and hyperlipidemia and strong family history of coronary artery disease presented to Dr. Rivera's office today for evaluation of progressive exertional chest tightness, shortness of breath and bilateral arm discomfort over the last 1 to 2 weeks. She does note increasing exertional shortness of breath over the last several months despite losing a few pounds intentionally. Patient does relate to eating some fast food and drinking sodas but denies any significant lower extremity edema. No previous cardiac history. No recent nausea, vomiting or diarrhea. Due to the nature of the symptoms patient was sent to the hospital for unstable angina with cardiology evaluation for recommendations and treatment.above per card [facility] History I have reviewed the patient's past medical history: Yes Medical History: Reports:: Anxiety, Chronic Obstructive Pulmonary Disease (COPD), Depression, Gastroesophageal Reflux Disease(GERD), Hyperlipidemia, Hypertension Denies:: Cancer, Diabetes Mellitus Type 1, Diabetes Mellitus Type 2, MRSA, Seizures *Have you ever received a pneumonia vaccine?: Yes *Have you received a flu vaccine this season?: Yes Other Medical History: Reports: Other. Denies: Blood Transfusion Reaction Laterality Cases: Left: Carpal Tunnel Release, Right: Arthroscopy Knee, Arthroscopy Shoulder Other Surgeries: Yes: No Previous Surgery, , Hysterectomy-Total, Tubal Ligation, Other Amputation: No Fractures: Yes (ankle-lt) - *Social History Educational Level: Attended High School Smoking Status: Current every day smoker Tobacco Type: cigarettes # Packs/Day (cigarettes): 1 Alcohol Intake: current Alcohol Intake Frequency:: holidays/special occasions only Substance Use Type: denies use *Occupational Status:: employed Housing: house Household Members: spouse *Travel in the last 8 weeks: None - Psychiatric History Expresses thoughts of harming self/others: None Suicide Plan Description: No Plan Pschychiatric History:: Reports:: Anxiety, Depression Family Hx:: Asthma, Cancer, Diabetes, Hypertension, Thyroid Disorder Review of Systems - Review of Systems Review of systems:: pertinent systems reviewed and negative unless documented below - Constitutional Denies fever(s) - Eyes Denies change in vision - ENT Denies headache(s) - *Cardiovascular Reports chest pain, Reports chest pain at rest, Reports chest pain with activity, Reports shortness of breath with activity - *Respiratory Denies cough - *Gastrointestinal Denies abdominal pain - *Genitourinary Denies blood in urine - *Musculoskeletal Denies joint pain - Integumentary/Breasts Denies rash - *Neurologic Denies unsteadiness, Denies dizziness - Psychiatric Denies thoughts of hurting/killing others, Denies panic attacks Meds Home Medications Medication Instructions Recorded Confirmed Type Lisinopril/Hydrochlorothiazide 1 tab PO DAILY 02/08/18 10/24/18 History [Lisinopril-Hctz 20-25 mg Tab] atorvastatin 40 mg tablet 40 mg PO QDAY #90 tab 07/02/18 10/24/18 Rx hydrocodone 5 mg-acetaminophen 325 1 tab PO TID PRN #90 tab 10/02/18 10/24/18 Rx mg tablet budesonide-formoterol HFA 160 2 puff INHALATION BID #10.2 g 10/23/18 10/24/18 Rx mcg-4.5 mcg/actuation aerosol inhaler paroxetine 40 mg tablet 40 mg PO DAILY #90 tab 10/23/18 10/24/18 Rx Albuterol Sulfate [Albuterol HFA 1 - 2 puffs IH Q4-6H PRN 10/24/18 10/24/18 History Inhaler] Gabapentin 800 mg PO QID 10/24/18 10/24/18 History Allergies Allergy/AdvReac Type Severity Reaction Status Date / Time acetaminophen Allergy Intermediate Verified 10/24/18 08:35 [From EXCEDRIN TENSION HEADACHE] aspirin [ASPIRIN] Allergy Intermediate Verified 10/24/18 08:35 caffeine Allergy Intermediate Verified 10/24/18 08:35 [From EXCEDRIN TENSION HEADACHE] ibuprofen [IBUPROFEN] Allergy Unknown Verified 10/24/18 08:35 Androgenic Anabolic Steroid AdvReac blisters Verified 10/24/18 10:16 Exam Vital signs and Labs for Last 24 Hours: Temp Pulse Resp BP Pulse Ox 98.8 F 77 16 96/46 L 98 10/24/18 19:30 10/24/18 19:30 10/24/18 19:30 10/24/18 19:30 10/24/18 20:20 Laboratory Results - last 24 hr 10/24/18 10:20: WBC 10.1, RBC 4.32, Hgb 12.9, Hct 39.7, MCV 92.0, MCH 29.9, MCHC 32.5, RDW 13.3, Plt Count 517 H, MPV 6.5 L, Neut % (Auto) 66.8, Lymph % (Auto) 25.3, [place] % (Auto) 5.2, Eos % (Auto) 2.1, Baso % (Auto) 0.6, Neut # (Auto) 6.8, Lymph # (Auto) 2.6, [place] # (Auto) 0.5, Eos # (Auto) 0.2, Baso # (Auto) 0.1 10/24/18 10:20: Sodium 137, Potassium 4.2, Chloride 101, Carbon Dioxide 26, Anion Gap 14.2, BUN 12, Creatinine 0.73, Estimated Creat Clear 144, Estimated GFR 84, Est GFR ( Amer) 101, Glucose 100, Calcium 9.5, Triglycerides 204 H, Cholesterol 208 H, LDL Cholesterol 108, VLDL Cholesterol 41 H, HDL Cholesterol 59, Cholesterol/HDL Ratio 3.5 10/24/18 10:20: Troponin I < 0.02 10/24/18 10:20: Magnesium 1.6 10/24/18 12:01: Activated Clotting Time 318 H* I & O for Last 24 hours: Intake & Output 10/22/18 10/23/18 10/24/18 10/25/18 11:59 11:59 11:59 11:59 Intake Total 420 / 420 Balance 420 / 420 Weight 223 lb 3 oz - Constitutional no acute distress, obese - *Routine HEENT Exam Head: Present: normocephalic Eye: Present: EOMI, PERRL ENT: Present: mucous membranes dry - *Routine Neck Exam Present: supple. Absent: JVD - *Routine Respiratory Exam Present: CTA bilaterally - *Routine Cardiovascular Exam Present: RRR, murmur - *Routine Abdominal Exam Present: soft - *Routine Extremities Exam Absent: edema - *Routine Skin Exam Present: intact - *Routine Neurological Exam Present: alert, oriented X3, CN II-XII intact - Routine Psychiatric Exam Present: normal affect Assessment and Plan (1) Unstable angina pectoris Current visit: Yes Status: Acute Category: Medical Code(s): I20.0 - Unstable angina (2) Hyperlipidemia Current visit: Yes Status: Acute Category: Medical Code(s): E78.5 - Hyperlipidemia, unspecified (3) Family history of coronary artery disease in mother Current visit: Yes Status: Acute Category: Medical Code(s): Z82.49 - Family history of ischemic heart disease and other diseases of the circulatory system (4) COPD (chronic obstructive pulmonary disease) Current visit: No Status: Acute Category: Medical Code(s): J44.9 - Chronic obstructive pulmonary disease, unspecified (5) Hypertension Current visit: No Status: Acute Category: Medical Code(s): I10 - Essential (primary) hypertension (6) Obesity (BMI 30-39.9) Current visit: No Status: Acute Category: Medical Code(s): E66.9 - Obesity, unspecified (7) Tobacco use Current visit: No Status: Acute Category: Medical Code(s): Z72.0 - Tobacco use (8) CAD (coronary artery disease) Current visit: Yes Status: Acute Qualifiers: Coronary Disease-Associated Artery/Lesion type: [place] artery [place] vs. transplanted heart: [place] heart Associated angina: with unspecified angina Qualified Code(s): I25.119 - Atherosclerotic heart disease of [place] coronary artery with unspecified angina pectoris Category: Medical Code(s): I25.10 - Atherosclerotic heart disease of [place] coronary artery without angina pectoris (9) Lumbar degenerative disc disease Current visit: No Status: Acute Category: Medical Code(s): M51.36 - Other intervertebral disc degeneration, lumbar region
[2018-10-25 06:14] LABS: Anion Gap 10.3 mEq/L (5-15); Calcium 8.8 mg/dL (8.5-10.1)
--- NOTE | 2018-10-25 07:26 | Pharmacy Consult Notes ---
[facility] Pharmacy VTE Monitoring - Patient Demographics Admission date: 10/24/18 Report Date: 10/25/18 Time: 07:26 Allergies/Adverse Reactions: Patient Allergies acetaminophen [From EXCEDRIN TENSION HEADACHE] Allergy (Intermediate, Verified 10/24/18 08:35) aspirin [ASPIRIN] Allergy (Intermediate, Verified 10/24/18 08:35) caffeine [From EXCEDRIN TENSION HEADACHE] Allergy (Intermediate, Verified 10/24/18 08:35) ibuprofen [IBUPROFEN] Allergy (Unknown, Verified 10/24/18 08:35) Androgenic Anabolic Steroid Adverse Reaction (Verified 10/24/18 10:16) blisters Height: 1.68 m Weight: 102.058 kg Patient Problems: Current Active Problems (Updated 10/25/18 @ 07:16 by Nicolas Rivera MD) Unstable angina pectoris (Acute) Hyperlipidemia (Acute) Family history of coronary artery disease in mother (Acute) CAD (coronary artery disease) (Acute) - VTE Risk Labs: VTE Related Lab Results Hgb 12.9 g/dL (12.2-16.2) 10/24/18 10:20 Hct 39.7 % (37.0-47.0) 10/24/18 10:20 Plt Count 517 K/mm3 (142-424) H 10/24/18 10:20 BUN 13 mg/dL (7-18) 10/25/18 05:30 Creatinine 0.74 mg/dL (0.55-1.02) 10/25/18 05:30 Estimated Creat Clear 143 mL/min (50-200) 10/25/18 05:30 Was VTE Risk Assessment Performed: Yes - Prophylaxis VTE Prophylaxis Ordered?: Yes Types of VTE Prophylaxis: TEDS Knee High Location of Applied Device: Bilateral Lower Extremeties - VTE Diagnosis Confirmed Treatment or plan recommended: Continue Current Treatment
--- NOTE | 2018-10-25 07:35 | Progress Note ---
Subjective Date: 10/25/18 Time: 07:32 Principal diagnosis: UAP Interval history: 53-year-old white female in bed eating breakfast in no acute distress. No chest pain or shortness of breath overnight. Vital signs are stable. Right wrist site looks good with pressure dressing in place. Exam Vital signs and Labs for Last 24 Hours: Temp Pulse Resp BP Pulse Ox 97.6 F 61 17 114/62 99 10/25/18 04:00 10/25/18 04:00 10/25/18 04:00 10/25/18 04:00 10/25/18 04:00 Laboratory Results - last 24 hr 10/24/18 10:20: WBC 10.1, RBC 4.32, Hgb 12.9, Hct 39.7, MCV 92.0, MCH 29.9, MCHC 32.5, RDW 13.3, Plt Count 517 H, MPV 6.5 L, Neut % (Auto) 66.8, Lymph % (Auto) 25.3, [place] % (Auto) 5.2, Eos % (Auto) 2.1, Baso % (Auto) 0.6, Neut # (Auto) 6.8, Lymph # (Auto) 2.6, [place] # (Auto) 0.5, Eos # (Auto) 0.2, Baso # (Auto) 0.1 10/24/18 10:20: Sodium 137, Potassium 4.2, Chloride 101, Carbon Dioxide 26, Anion Gap 14.2, BUN 12, Creatinine 0.73, Estimated Creat Clear 144, Estimated GFR 84, Est GFR ( Amer) 101, Glucose 100, Calcium 9.5, Triglycerides 204 H, Cholesterol 208 H, LDL Cholesterol 108, VLDL Cholesterol 41 H, HDL Cholesterol 59, Cholesterol/HDL Ratio 3.5 10/24/18 10:20: Troponin I < 0.02 10/24/18 10:20: Magnesium 1.6 10/24/18 12:01: Activated Clotting Time 318 H* 10/25/18 05:30: Sodium 141, Potassium 4.3, Chloride 106, Carbon Dioxide 29, Anion Gap 10.3, BUN 13, Creatinine 0.74, Estimated Creat Clear 143, Estimated GFR 82, Est GFR ( Amer) 100, Glucose 97, Calcium 8.8 I & O for Last 24 hours: Intake & Output 10/22/18 10/23/18 10/24/18 10/25/18 11:59 11:59 11:59 11:59 Intake Total 420 / 420 Output Total 300 / 300 Balance 120 / 120 Weight 223 lb 3 oz 225 lb - *Routine HEENT Exam Head: Present: normocephalic Eye: Present: EOMI, PERRL ENT: Present: mucous membranes moist - *Routine Respiratory Exam Present: CTA bilaterally. Absent: accessory muscle use, rales, rhonchi, wheezes - *Routine Cardiovascular Exam Present: RRR. Absent: murmur, gallop, rubs - *Routine Abdominal Exam Present: soft. Absent: tenderness, distended, guarding - *Routine Extremities Exam Absent: edema, calf tenderness - *Routine Neurological Exam Present: alert, oriented X3, moving all extremities Progress Note: A&P (1) Unstable angina pectoris Status: Acute Current Visit: Yes (2) Hyperlipidemia Status: Acute Current Visit: Yes (3) Family history of coronary artery disease in mother Status: Acute Current Visit: Yes (4) COPD (chronic obstructive pulmonary disease) Status: Acute Current Visit: No (5) Hypertension Status: Acute Current Visit: No (6) Obesity (BMI 30-39.9) Status: Acute Current Visit: No (7) Tobacco use Status: Acute Current Visit: No (8) CAD (coronary artery disease) Status: Acute Current Visit: Yes (9) Lumbar degenerative disc disease Status: Acute Current Visit: No Assessment and Plan for All Diagnoses:: 1. Okay for discharge home from cardiology standpoint. 2. Medications: Aspirin 81 mg daily, atorvastatin 40 mg daily, metoprolol succinate ER 25 mg daily, isosorbide mononitrate 30 mg daily, lisinopril 5 mg daily, hydrochlorothiazide 12.5 mg daily 3. Follow-up in our office in 1 to 2 weeks.
--- NOTE | 2018-10-25 08:29 | Discharge Summary ---
General - General Admission date:: 10/24/18 Discharge date: 10/25/18 HPI HPI: this wf presented today with progressive chest tightness over the last 2 weeks with sig risk factors - pt was admitted with unstable angina and seen by card Tobacco use, started age 17, continued 2. Hypertension 3. Hyperlipidemia 4. Strong family history for coronary artery disease in her mother in her late 50s early 60s 5. Obesity 6. GERD 7. Anxiety/Depression History of present illness: 53-year-old white female tobacco user with history of hypertension and hyperlipidemia and strong family history of coronary artery disease presented to Dr. Rivera's office today for evaluation of progressive exertional chest tightness, shortness of breath and bilateral arm discomfort over the last 1 to 2 weeks. She does note increasing exertional shortness of breath over the last several months despite losing a few pounds intentionally. Patient does relate to eating some fast food and drinking sodas but denies any significant lower ext remity edema. No previous cardiac history. No recent nausea, vomiting or diarrhea. Due to the nature of the symptoms patient was sent to the hospital for unstable angina with cardiology evaluation for recommendations and treatment.above per janessa Hospital Course Hospital Course: Today patient sitting up on the side of the bed requesting to be discharged home. Patient will be discharged with medication adjustments such as aspirin 81 mg daily, atorvastatin 40 mg daily, metoprolol succinate ER 25 mg daily, isosorbide mononitrate 30 mg daily, lisinopril 5 mg daily, hydrochlorothiazide 12.5 mg daily and she will follow-up with cardiology in 1 week. Discussion with patient about the risk of smoking and encouraged to quit smoking we will send nicotine patches. Also discussed with patient the importance of losing weight with a low calorie low-fat diet. Will follow-up next week with patient in the office. While patient was admitted following tests performed: echo:CONCLUSION: 1. Mildly enlarged left atrium, normal left ventricular size, mild concentric left ventricular hypertrophy, visually estimated ejection fraction 55% with no regional wall motion abnormality, diastolic parameters are within normal range. 2. Mildly enlarged right ventricle with normal contractility. 3. Mild mitral and tricuspid regurgitation 4. No significant pericardial effusion noted. heart cath results:IMPRESSION: 1. Chronic total occlusion of the right coronary artery 2. Normal ejection fraction 3. Elevated LVEDP consistent with diastolic dysfunction PLAN: 1. Patient requires medical management at this point. I would recommend maximizing beta blockers to get a heart rate target in the low 70s to mid 60s. Also maximize antianginal medications 2. Avoidance of tobacco products 3. Cardiac rehabilitation 4. Aggressive risk factor modification 5. Patient should remain in the hospital overnight beta blockers and antianginal medications including long-acting nitrates and or calcium channel leydi should be started. Hypertension needs to be treated accordingly. 6. Patient should be on high intensity statin with a goal LDL less than 55 Objective Vital signs: Temp Pulse Resp BP Pulse Ox 98.3 F 76 19 114/62 100 10/25/18 07:47 10/25/18 07:47 10/25/18 07:47 10/25/18 07:47 10/25/18 07:47 no acute distress - *Routine HEENT Exam Head: Present: normocephalic Eye: Present: PERRL ENT: Present: mucous membranes moist - *Routine Respiratory Exam Present: CTA bilaterally - *Routine Cardiovascular Exam Present: RRR - *Routine Abdominal Exam Present: soft, normoactive bowel sounds. Absent: tenderness - *Routine Skin Exam Present: intact Comments: dressing to rt wrist c/d/i - *Routine Neurological Exam Present: alert, oriented X3 - Routine Psychiatric Exam Present: normal affect, normal thought process Results Labs on day of discharge: Labs from last 24 hours 10/25/18 10/24/18 10/24/18 05:30 12:01 10:20 WBC RBC Hgb Hct MCV MCH MCHC RDW Plt Count MPV Neut % (Auto) Lymph % (Auto) [place] % (Auto) Eos % (Auto) Baso % (Auto) Neut # (Auto) Lymph # (Auto) [place] # (Auto) Eos # (Auto) Baso # (Auto) Activated Clotting Time 318 H* Sodium 141 Potassium 4.3 Chloride 106 Carbon Dioxide 29 Anion Gap 10.3 BUN 13 Creatinine 0.74 Estimated Creat Clear 143 Estimated GFR 82 Est GFR ( Amer) 100 Glucose 97 Calcium 8.8 Magnesium 1.6 Troponin I Triglycerides Cholesterol LDL Cholesterol VLDL Cholesterol HDL Cholesterol Cholesterol/HDL Ratio 10/24/18 10/24/18 10/24/18 10:20 10:20 10:20 WBC 10.1 RBC 4.32 Hgb 12.9 Hct 39.7 MCV 92.0 MCH 29.9 MCHC 32.5 RDW 13.3 Plt Count 517 H MPV 6.5 L Neut % (Auto) 66.8 Lymph % (Auto) 25.3 [place] % (Auto) 5.2 Eos % (Auto) 2.1 Baso % (Auto) 0.6 Neut # (Auto) 6.8 Lymph # (Auto) 2.6 [place] # (Auto) 0.5 Eos # (Auto) 0.2 Baso # (Auto) 0.1 Activated Clotting Time Sodium 137 Potassium 4.2 Chloride 101 Carbon Dioxide 26 Anion Gap 14.2 BUN 12 Creatinine 0.73 Estimated Creat Clear 144 Estimated GFR 84 Est GFR ( Amer) 101 Glucose 100 Calcium 9.5 Magnesium Troponin I < 0.02 Triglycerides 204 H Cholesterol 208 H LDL Cholesterol 108 VLDL Cholesterol 41 H HDL Cholesterol 59 Cholesterol/HDL Ratio 3.5 - Additional Comments Rounded with Dr. Rivera all orders per Nicole DS: Diagnosis - Discharge Diagnosis (1) Unstable angina pectoris Status: Acute (2) Hyperlipidemia Status: Acute (3) Family history of coronary artery disease in mother Status: Acute (4) COPD (chronic obstructive pulmonary disease) Status: Acute (5) Hypertension Status: Acute (6) Obesity (BMI 30-39.9) Status: Acute (7) Tobacco use Status: Acute (8) CAD (coronary artery disease) Status: Acute (9) Lumbar degenerative disc disease Status: Acute Discharge Plan - Patient Discharge Instructions ACTIVITY: Continue current activity DIET: continue same diet Patient Instructions: Heart-Healthy Diet, DI for Angina, DI for Cardiac Catheterization, DI for Surgical Site Infection - Follow up Plan Follow up with: Sim Lock MD [Staff Physician] - 1 week Nicolas Rivera MD [Primary Care Provider] - 1 week Disposition: Home, Self-Residential Medications: Home Medications Medication Instructions Recorded Confirmed Type Lisinopril/Hydrochlorothiazide 1 tab PO DAILY 02/08/18 10/24/18 History [Lisinopril-Hctz 20-25 mg Tab] atorvastatin 40 mg tablet 40 mg PO QDAY #90 tab 07/02/18 10/24/18 Rx hydrocodone 5 mg-acetaminophen 325 1 tab PO TID PRN #90 tab 10/02/18 10/24/18 Rx mg tablet budesonide-formoterol HFA 160 2 puff INHALATION BID #10.2 g 10/23/18 10/24/18 Rx mcg-4.5 mcg/actuation aerosol inhaler paroxetine 40 mg tablet 40 mg PO DAILY #90 tab 10/23/18 10/24/18 Rx Albuterol Sulfate [Albuterol HFA 1 - 2 puffs IH Q4-6H PRN 10/24/18 10/24/18 History Inhaler] Aspirin [Aspirin 81mg chewable 81 mg PO DAILY 30 Days #30 tab.chew 10/25/18 Rx tab] Gabapentin [Neurontin 800mg Tab] 800 mg PO QID 10/25/18 10/25/18 History Isosorbide Mononitrate [Imdur 30mg 30 mg PO DAILY 30 Days #30 tab 10/25/18 Rx ER tablet] Lisinopril [Zestril 5mg 5 mg PO DAILY 30 Days #30 tab 10/25/18 Rx Tablet] Metoprolol Succinate [Toprol XL 25 mg PO DAILY 30 Days #30 10/25/18 Rx 25mg tablet] tab.er.24h Nicotine [Nicoderm 21mg/24hr 21 mg TD DAILYP PRN 30 Days #30 10/25/18 Rx patch] patch.td24 hydroCHLOROthiazide [HCTZ 12.5mg 12.5 mg PO DAILY 30 Days #30 cap 10/25/18 Rx capsule] Prescriptions/Medication Reconciliation: New Aspirin [Aspirin 81mg chewable tab] 81 mg PO DAILY 30 Days #30 tab.chew hydroCHLOROthiazide [HCTZ 12.5mg capsule] 12.5 mg PO DAILY 30 Days #30 cap Isosorbide Mononitrate [Imdur 30mg ER tablet] 30 mg PO DAILY 30 Days #30 tab Nicotine [Nicoderm 21mg/24hr patch] 21 mg TD DAILYP PRN 30 Days #30 patch.td24 PRN Reason: Nicotine Cravings Metoprolol Succinate [Toprol XL 25mg tablet] 25 mg PO DAILY 30 Days #30 tab.er.24h Lisinopril [Zestril 5mg Tablet] 5 mg PO DAILY 30 Days #30 tab Continued budesonide-formoterol HFA 160 mcg-4.5 mcg/actuation aerosol inhaler 2 puff INHALATION BID #10.2 g paroxetine 40 mg tablet 40 mg PO DAILY #90 tab atorvastatin 40 mg tablet 40 mg PO QDAY #90 tab hydrocodone 5 mg-acetaminophen 325 mg tablet 1 tab PO TID PRN #90 tab PRN Reason: pain Gabapentin [Neurontin 800mg Tab] 800 mg PO QID Albuterol Sulfate [Albuterol HFA Inhaler] 1 - 2 puffs IH Q4-6H PRN PRN Reason: Shortness Of Breath Or Wheezing Discontinued Lisinopril/Hydrochlorothiazide [Lisinopril-Hctz 20-25 mg Tab] 1 tab PO DAILY
== END 2018-10-25 09:22 | disposition home or self-care (01) ==
LOC: 2ND
PROVIDERS: ADMIT Emergency Medicine; ATTEND Emergency Medicine
CPT/HCPCS: 36415; 80048; 80061; 83735; 84484; 85025; 85347; 92943; 93306; 93458; 99152; 99153; C1725; C1769; C9607; G0378; J1644; Q9967

== ENCOUNTER → 2018-11-27 09:12 | Outpatient (CLI) | payer OTHER, SELFPAY ==
--- NOTE | 2018-11-27 09:15 | CA_ITS ---
APPROVED REPORT Laterality: Right Upper Extremity Business Director: Debbie Escobar RVT Indications Swelling Pt had heart cath on 10/24/18 with right radial access, c/o knot for several weeks post cath. Knot went away last week. Findings No evidence of pseudoaneuyrsm or AV fistula seen right wrist. 0.9 cm complex lesion seen right wrist, probable resiudal hematoma. Conclusion No evidence of pseudoaneuyrsm or AV fistula seen right wrist. Electronically signed by : Sohail Biswas MD 11/28/2018 11:08:10
--- NOTE | 2018-11-27 09:35 | MM_ITS ---
PROCEDURE: MM DIG SCREENING MAMM BI W/CAD CLINICAL INDICATION: Screening there is a history of breast cancer in the patient's maternal grandmother diagnosed in her 60s and a paternal grandmother diagnosed in her 60s. There has been a previous cyst aspiration right breast for benign findings COMPARISON: DIG MAMMO BILAT SCREENING from 02/03/2013 DIG MAMMO BILAT SCREENING from 01/27/2014 DMSB DIG MAMM-SCREEN CARMELITA W/CAD from 12/06/2016 TECHNIQUE: Standard CC and MLO images were obtained. R2 CAD reviewed. FINDINGS: The breasts are composed primarily of fat with minimal scattered fibroglandular densities in each breast. There is a biopsy clip left breast. There is a stable benign-appearing nodular density deep in lateral right breast. There is no suspicious lesion and no suspicious microcalcifications. There are fatty replaced nodes bilaterally IMPRESSION: Fibrofatty parenchyma with no suspicious lesions seen BI-RAD Category: 2 Benign Finding(s) FOLLOW-UP: 1YR 1 Year Follow-up (A letter has been sent to the patient regarding results of the study.) Dictated by: Dr. Gonsalo Richard MD 11/29/2018 12:38 Signed by: <Electronically signed by Dr. Gonsalo Richard MD in [place]> 11/29/2018 12:38
== END ==
PROVIDERS: PCP Emergency Medicine; Visit Provider Internal Medicine
DX: Z12.31 Encounter for screening mammogram for malignant neoplasm of breast (principal); M79.601 Pain in right arm; M79.89 Other specified soft tissue disorders
CPT/HCPCS: 77067; 93931

== ENCOUNTER → 2018-11-27 13:56 | Outpatient (CLI) | payer OTHER, SELFPAY ==
[2018-11-27 16:48] LABS: Amphetamine/Metha Screen,Urine Negative ng/mL (<1000); Barbiturates Screen,Urine Negative ng/mL (<200); Benzodiazepines Screen,Urine Negative ng/mL (<200); Cannabinoid Screen,Urine Positive ng/mL (<50); Cocaine Screen,Urine Negative ng/mL (<300); Methadone Screen,Urine Negative ng/mL (<300); Opiate Screen,Urine Positive ng/mL (<300); Phencyclidine Screen,Urine Negative ng/mL (<25)
== END ==
PROVIDERS: Visit Provider Emergency Medicine
DX: Z79.891 Long term (current) use of opiate analgesic (principal)
CPT/HCPCS: 80305

== ENCOUNTER → 2019-01-02 11:55 | Outpatient (CLI) | payer OTHER, SELFPAY ==
--- NOTE | 2019-01-02 12:01 | XR_ITS ---
PROCEDURE: XR FOOT WT BEARING LT 3V CLINICAL INDICATION: left ankle pain COMPARISON: FTWBL3 XR foot wt bearing LT 3V from 05/04/2018 FTWBR3 XR foot wt bearing RT 3V from 05/04/2018 FINDINGS: No fracture or dislocation. No lytic or blastic change. There is normal mineralization. The joint spaces are well-preserved. No significant degenerative/arthritic changes. No erosive changes evident. Other findings:None. IMPRESSION: No acute findings. Dictated by: Sohail Biswas MD 01/02/2019 12:58 Electronically signed by Sohail Biswas MD in [place] 01/02/2019 12:58
--- NOTE | 2019-01-02 12:01 | XR_ITS ---
PROCEDURE: XR ANKLE WT BEARING LT MIN 3V CLINICAL INDICATION: left ankle pain COMPARISON: ANKL3 ANKLE-LT-3 VIEWS from 11/01/2016 ANKWBR3 XR ankle wt bearing RT min 3V from 05/04/2018 FINDINGS: There are hypertrophic changes along the lateral aspect of the distal fibula similar to the previous exam. No acute fracture or dislocation. No significant degenerative change IMPRESSION: Hypertrophic change of the lateral malleolar region laterally otherwise negative Dictated by: Sohail Biswas MD 01/02/2019 12:57 Electronically signed by Sohail Biswas MD in [place] 01/02/2019 12:57
== END ==
PROVIDERS: PCP Emergency Medicine; Visit Provider Podiatrist
DX: M25.572 Pain in left ankle and joints of left foot (principal)
CPT/HCPCS: 73610; 73630

== ENCOUNTER → 2019-01-24 13:21 | Outpatient (CLI) | payer OTHER, SELFPAY ==
[2019-01-24 15:07] LABS: Amphetamine/Metha Screen,Urine Negative ng/mL (<1000); Barbiturates Screen,Urine Negative ng/mL (<200); Benzodiazepines Screen,Urine Negative ng/mL (<200); Cannabinoid Screen,Urine Negative ng/mL (<50); Cocaine Screen,Urine Negative ng/mL (<300); Methadone Screen,Urine Negative ng/mL (<300); Opiate Screen,Urine Positive ng/mL (<300); Phencyclidine Screen,Urine Negative ng/mL (<25)
== END ==
PROVIDERS: Visit Provider Emergency Medicine
DX: Z79.899 Other long term (current) drug therapy (principal)
CPT/HCPCS: 80305

== ENCOUNTER → 2019-02-25 09:01 | Outpatient (CLI) | payer OTHER, SELFPAY ==
--- NOTE | 2019-02-25 09:03 | MR_ITS ---
PROCEDURE: MR ANKLE LT WO/W CON CLINICAL INDICATION: left ankle pain Chronic ankle instability, peroneal tendinitis, metatarsalgia, failed immobilization, failed physical therapy COMPARISON: ANKWBL3 XR ankle wt bearing LT min 3V from 05/04/2018 XR ANKLE WT BEARING LT MIN 3V from 01/02/2019 XR FOOT WT BEARING LT 3V from 01/02/2019 TECHNIQUE: Routine multiplanar multi echo sequences are performed without and with gadolinium enhancement. FINDINGS: Abnormal signal intensity is present within the talar dome and the distal tibia. Along the lateral aspect of the talar dome there is a subcortical area decreased T1 and increased T2 signal measuring up to morning the thanks transverse. This is consistent with an area of osteochondritis desiccans. A small adjacent area of bone marrow edema signal is present within the distal tibia laterally. Small cystic areas noted in the distal tibia medially. There is some minimal cortical regularity involving the articular surface of the talus at this region. There is discontinuity along the anterior and distal aspect of the anterior talofibular ligament. A few fibers however do appear intact superiorly. The PT FL and tibial fibular ligaments have an unremarkable appearance. The deltoid ligament fibers are sparse and could be due to a partial tear. The peroneal tendons, posterior tibialis, flexor hallucis longus, and flexor digitorum longus have an unremarkable. The extensor tendons appear intact. Unremarkable appearing Achilles tendon. Small amount fluid is present in the posterior talocalcaneal region. Susceptibility artifact is present along the plantar surface of the foot near the Achilles region. Has the patient had prior surgery in this region. If not then a foreign body is considered. IMPRESSION: 1. Suspected partial tear of the ATFL and deltoid ligament. Complete tear is not felt to be present. 2. 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
--- NOTE | 2019-02-25 10:35 | HMH.ITSHM ---
Current Home Medications as stated by this patient Anna Shaikh or corporate representative. []METAPROLOL OMEPRAZOLE ATORVASTATIN LISINOPRIL SOSORB MONO ASPIRIN LORATAB GABAPENTIN FUROSEMIDE SPIRONOLACE PRAOXTINE
== END ==
PROVIDERS: PCP Emergency Medicine; Visit Provider Podiatrist
DX: M25.372 Other instability, left ankle (principal); M25.572 Pain in left ankle and joints of left foot; M76.72 Peroneal tendinitis, left leg
CPT/HCPCS: 73723; A9576

== ENCOUNTER → 2019-03-24 14:19 | Outpatient (CLI) | payer OTHER, SELFPAY ==
[2019-03-24 16:23] LABS: Amphetamine/Metha Screen,Urine Negative ng/mL (<1000); Barbiturates Screen,Urine Negative ng/mL (<200); Benzodiazepines Screen,Urine Negative ng/mL (<200); Cannabinoid Screen,Urine Negative ng/mL (<50); Cocaine Screen,Urine Negative ng/mL (<300); Methadone Screen,Urine Negative ng/mL (<300); Opiate Screen,Urine Positive ng/mL (<300); Phencyclidine Screen,Urine Negative ng/mL (<25)
== END ==
PROVIDERS: Visit Provider Emergency Medicine
DX: Z79.899 Other long term (current) drug therapy (principal)
CPT/HCPCS: 80305

== ENCOUNTER → 2019-05-23 13:38 | Outpatient (CLI) | payer OTHER, SELFPAY ==
[2019-05-23 15:54] LABS: Amphetamine/Metha Screen,Urine Negative ng/mL (<1000); Barbiturates Screen,Urine Negative ng/mL (<200); Benzodiazepines Screen,Urine Negative ng/mL (<200); Cannabinoid Screen,Urine Negative ng/mL (<50); Cocaine Screen,Urine Negative ng/mL (<300); Methadone Screen,Urine Negative ng/mL (<300); Opiate Screen,Urine Positive ng/mL (<300); Phencyclidine Screen,Urine Negative ng/mL (<25)
== END ==
PROVIDERS: Visit Provider Emergency Medicine
DX: Z79.899 Other long term (current) drug therapy (principal)
CPT/HCPCS: 80305

== ENCOUNTER → 2019-06-05 13:25 | Outpatient (CLI) | payer OTHER, SELFPAY | PROVIDERS: PCP Emergency Medicine; Visit Provider Emergency Medicine | DX: G47.33 Obstructive sleep apnea (adult) (pediatric) (principal) | CPT/HCPCS: 95806 ==

== ENCOUNTER → 2019-08-22 15:13 | Outpatient (CLI) | payer OTHER, SELFPAY ==
[2019-08-22 15:36] LABS: Alanine Aminotransferase 18 U/L (12-78); Albumin Level 4.7 g/dl (3.5-5.0); Albumin/Globulin Ratio 1.5 (1.1-1.8); Alkaline Phosphatase 115 U/L (38-126); Anion Gap 11.8 mEq/L (5-15); Aspartate Amino Transferase 27 U/L (14-36); Bilirubin,Total 0.4 mg/dl (0.2-1.3); Blood Urea Nitrogen 27 mg/dl (7-17); Calcium 10.6 mg/dl (8.4-10.2); Carbon Dioxide 26 mmol/L (22.0-30.0); Chloride 103 mmol/L (98-107); Estimated Glomerular Filt Rate 105 ml/min (>60); GFR (African American) 127 ML/MIN (>60); Globulin 3.1 g/dL (1.3-3.2); Glucose 109 mg/dl (74-100); Potassium 4.8 mmoL/L (3.5-5.1); Sodium 136 mmol/L (136-145); Total Protein,Serum 7.8 g/dl (6.3-8.2)
[2019-08-22 15:41] LABS: C-Reactive Protein 2.6 mg/L (0-4)
[2019-08-22 15:54] LABS: T4 (Thyroxine) 7.7 ug/dl (5.53-11.0)
[2019-08-22 16:07] LABS: Thyroid Stimulating Hormone 1.51 uIU/mL (0.465-4.68)
[2019-08-22 16:16] LABS: Erythrocyte Sedimentation Rate 51 mm/hr (0-30)
[2019-08-22 16:29] LABS: Basophils # 0.1 K/mm3 (0-0.2); Basophils % 0.8 % (0.1-2.0); Eosinophils # 0.3 K/mm3 (0.0-0.4); Eosinophils % 2.5 % (0.1-12.0); Hematocrit 41.9 % (37.0-47.0); Hemoglobin 13.4 g/dL (12.2-16.2); Lymphocytes # 2.4 K/mm3 (0.7-4.5); Lymphocytes % 17.8 % (10-50); Mean Corpuscular Hemoglobin 30.3 pg (27.0-31.2); Mean Corpuscular Volume 94.6 fl (81-99); Mean Platelet Volume 8.9 fl (7.4-10.4); Monocytes # 0.8 K/mm3 (0.1-1.0); Monocytes % 5.9 % (1.7-9.3); Neutrophils # 9.7 K/mm3 (1.8-7.8); Platelet Count 529 K/mm3 (142-424); Red Blood Count 4.43 M/mm3 (4.20-5.40); Red Cell Distribution Width 13.7 % (11.5-17.5); White Blood Count 13.3 K/mm3 (4.8-10.8)
[2019-08-24 11:47] LABS: RA Latex Turbid. <10.0 IU/mL (0.0-13.9)
[2019-08-25 14:31] LABS: Anti-Centromere B Antibodies <0.2 AI (0.0-0.9); Anti-Jo-1 <0.2 AI (0.0-0.9); Anti-Smith Antibody <0.2 AI (0.0-0.9); Antichromatin Antibodies <0.2 AI (0.0-0.9); Antiscleroderma-70 Antibodies <0.2 AI (0.0-0.9); RNP Antibodies 0.4 AI (0.0-0.9); Sjogren's Anti-SS-A <0.2 AI (0.0-0.9); Sjogren's Anti-SS-B <0.2 AI (0.0-0.9)
[2019-08-25 16:15] LABS: Anti-DNA (DS) Ab Qn 2 IU/mL (0-9)
[2019-08-27 11:26] LABS: Anti-Cyclic Citrullinated Pept 12 units (0-19)
== END ==
PROVIDERS: Visit Provider Emergency Medicine
DX: M51.36 Other intervertebral disc degeneration, lumbar region (principal)
CPT/HCPCS: 80053; 84436; 84443; 85025; 85651; 86140; 86200; 86225; 86235; 86431

== ENCOUNTER → 2019-09-01 12:54 | Outpatient (CLI) | payer OTHER, SELFPAY ==
[2019-09-01 13:37] LABS: C-Reactive Protein 7.3 mg/L (0-4)
[2019-09-03 12:56] LABS: Peripheral Smear Review Scanned Result
[2019-09-03 14:33] LABS: Calcium, Ionized 5.6 mg/dL (4.5-5.6)
== END ==
PROVIDERS: Visit Provider Physician Assistant
DX: E83.52 Hypercalcemia (principal); R70.0 Elevated erythrocyte sedimentation rate; R79.89 Other specified abnormal findings of blood chemistry
CPT/HCPCS: 36415; 82330; 86140

== ENCOUNTER 2019-10-22 14:15 | Emergency (ER) | payer OTHER, SELFPAY ==
[2019-10-22 14:16] VITALS: BP 112/75; PULSE 88; RESP 16; TEMP 36.9; O2SAT 98; BMI 35.6
--- NOTE | 2019-10-22 14:31 | ECG_ITS ---
APPROVED REPORT Exam: Resting ECG HR:79 bpm ECG Measurements Heart Rate 79 AXES DE 138 P 41 QRSd 84 QRS 74 QT 394 T 41 QTc 451 <Conclusion> Normal sinus rhythm Normal ECG Electronically signed by : Zain Magaña, 10/24/2019 17:08:43
--- NOTE | 2019-10-22 14:32 | XR_ITS ---
PROCEDURE: XR CHEST PORTABLE CLINICAL INDICATION: sob COMPARISON: CXR2V XR chest 2V from 07/27/2017 XR CHEST PORTABLE from 04/28/2019 FINDINGS: Patchy infiltrate is present in the right lower lobe. Unremarkable cardiovascular structures. IMPRESSION: Right lower lobe infiltrate Dictated by: Sohail Biswas MD 10/22/2019 16:19 Electronically signed by Sohail Biswas MD in [place] 10/22/2019 16:19
[2019-10-22 14:51] LABS: Basophils # 0.1 K/mm3 (0-0.2); Basophils % 0.4 % (0.1-2.0); Eosinophils # 0.2 K/mm3 (0.0-0.4); Eosinophils % 1.9 % (0.1-12.0); Hematocrit 41.1 % (37.0-47.0); Hemoglobin 14.1 g/dL (12.2-16.2); Lymphocytes # 2.8 K/mm3 (0.7-4.5); Lymphocytes % 22.1 % (10-50); Mean Corpuscular HGB Conc 34.4 g/dL (31.8-35.4); Mean Corpuscular Hemoglobin 31.9 pg (27.0-31.2); Mean Corpuscular Volume 92.9 fl (81-99); Mean Platelet Volume 7.2 fl (7.4-10.4); Monocytes # 0.7 K/mm3 (0.1-1.0); Monocytes % 5.4 % (1.7-9.3); Neutrophils % 70.1 % (37.0-80.0); Platelet Count 518 K/mm3 (142-424); Red Blood Count 4.42 M/mm3 (4.20-5.40); Red Cell Distribution Width 13.5 % (11.5-17.5); White Blood Count 12.8 K/mm3 (4.8-10.8)
[2019-10-22 14:53] LABS: Chloride 98 mmol/L (98-107); Potassium 4.5 mmoL/L (3.5-5.1); Sodium 136 mmol/L (136-145)
[2019-10-22 14:54] VITALS: BP 131/81; PULSE 72; O2SAT 96
[2019-10-22 14:55] LABS: Blood Urea Nitrogen 15 mg/dl (7-17); Creatinine Clearance Estimated 172 mL/min (50-200); Estimated Glomerular Filt Rate 105 ml/min (>60); GFR (African American) 127 ML/MIN (>60)
[2019-10-22 14:56] LABS: Alanine Aminotransferase 20 U/L (12-78); Albumin Level 4.4 g/dl (3.5-5.0); Albumin/Globulin Ratio 1.3 (1.1-1.8); Alkaline Phosphatase 140 U/L (38-126); Anion Gap 14.5 mEq/L (5-15); Aspartate Amino Transferase 31 U/L (14-36); Bilirubin,Total 0.5 mg/dl (0.2-1.3); Calcium 9.6 mg/dl (8.4-10.2); Carbon Dioxide 28 mmol/L (22.0-30.0); Globulin 3.3 g/dL (1.3-3.2); Glucose 104 mg/dl (74-100); Total Protein,Serum 7.7 g/dl (6.3-8.2)
[2019-10-22 15:10] LABS: Troponin I < 0.01 ng/ml (0.00-0.034)
[2019-10-22 15:33] VITALS: BP 112/73; PULSE 80; O2SAT 97
--- NOTE | 2019-10-22 16:23 | HMH.EDGENADL ---
ED Disposition Clinical Impression: Dehydration, Viral syndrome Disposition: Home, Self-Care Condition on Discharge: Good Instructions: DI for Muscle Weakness Additional Instructions: Please call facility tomorrow afternoon to get the status of your cover test. If symptoms worsen please return to the emergency department. Referrals: Nicolas Rivera MD [Primary Care Provider] - - Critical Care Critical Care Time: No Attestation: On 10/22/19, the high probability of a clinically significant, sudden or life threatening deterioration of the following system(s) required my full and direct attention, intervention and personal management. The time I documented below is in addition to time spent performing reported procedures but includes the following listed in this critical care notation. Medical Decision Making - Medical Records Medical records reviewed: Yes: I reviewed the patient's medical records. - Shiva Inquiry Pt receiving controlled substance: No Vital Signs: 10/22/19 14:16 10/22/19 14:54 10/22/19 15:33 Temperature 98.5 F Temperature Source Oral Pulse Rate [Left] 88 72 80 Respiratory Rate 16 Blood Pressure [Right Arm] 112/75 131/81 112/73 Blood Pressure Mean [Right Arm] 87 97 86 Blood Pressure Source [Right Arm] Automatic Cuff Automatic Cuff Automatic Cuff Blood Pressure Position [Right Arm] Sitting Sitting Sitting 02 Sat by Pulse Oximetry 98 96 97 Oxygen Delivery Method Room Air Room Air Room Air - Lab Data Lab results reviewed: Yes: I reviewed the patient's lab results. Lab Results 10/22/19 14:36: WBC 12.8 H, RBC 4.42, Hgb 14.1, Hct 41.1, MCV 92.9, MCH 31.9 H, MCHC 34.4, RDW 13.5, Plt Count 518 H, MPV 7.2 L, Neut % (Auto) 70.1, Lymph % (Auto) 22.1, [place] % (Auto) 5.4, Eos % (Auto) 1.9, Baso % (Auto) 0.4, Neut # (Auto) 9.0 H, Lymph # (Auto) 2.8, [place] # (Auto) 0.7, Eos # (Auto) 0.2, Baso # (Auto) 0.1 10/22/19 14:36: Sodium 136, Potassium 4.5, Chloride 98, Carbon Dioxide 28, Anion Gap 14.5, BUN 15, Creatinine 0.60, Estimated Creat Clear 172, Estimated GFR 105, Est GFR ( Amer) 127, Glucose 104 H, Calcium 9.6, Total Bilirubin 0.5, AST 31, ALT 20, Alkaline Phosphatase 140 H, Troponin I < 0.01, Total Protein 7.7, Albumin 4.4, Globulin 3.3 H, Albumin/Globulin Ratio 1.3 Result diagrams: 10/22/19 14:36 10/22/19 14:36 Orders (Tests/Meds): ORDERS Category Date Time Status SARS-CoV-2, CESAR Stat Lab 10/22/19 14:45 Received Troponin I Q3H Lab 10/22/19 17:45 Ordered Troponin I Q3H Lab 10/22/19 20:45 Ordered Medical Decision Narrative: She does have an outpatient COVID test done and the results should be back tomorrow. General Adult HPI - General Chief complaint: Weakness Stated complaint: Weakness Time Seen by Provider: 10/22/19 15:00 Mode of Arrival: Ambulatory Source of Information: Patient Limitations: No Limitations Description of Symptoms (Recalled from ER Triage Doc. by RN): Pt sent from Dr. Rivera's office with c/o weakness, hurting all over, vomting, headache and not feeling well. - History of Present Illness HPI narrative: 54-year-old female presents the emergency department after seeing her primary care for generalized weakness fatigue and arthralgias x4 days. Patient states she is just been very lethargic and fatigued and had some muscle pains and joint pains for the last 4 days. She states she did feel chills and shakes but objectively she was afebrile. Patient also complained of headache. Patient denied any sore throat or loss of taste or smell. Patient also denies any cough or shortness of breath. - Related Data Home Medications Medication Instructions Recorded Confirmed Aspirin [Aspirin 81mg chewable 81 mg PO DAILY 04/28/19 10/22/19 tab] cream base no.135 (bulk) applic MISCELLANE 05/23/19 10/22/19 Previous Rx's Medication Instructions Recorded metoprolol succinate 25 mg 25 mg PO DAILY #90 tab 05/05/19 tablet,extended release
[2019-10-22 16:35] VITALS: BP 115/70; PULSE 70; RESP 16; TEMP 36.7; O2SAT 98
[2019-10-24 14:11] LABS: Covid-19 Nasal PCR Sendout Lex NOT DETECTED
== END 2019-10-22 16:36 | disposition home or self-care (01) ==
PROVIDERS: Emergency Provider Family Medicine; PCP Emergency Medicine
DX: E86.0 Dehydration (principal); B34.9 Viral infection, unspecified; J44.9 Chronic obstructive pulmonary disease, unspecified; K21.9 Gastro-esophageal reflux disease without esophagitis; F41.9 Anxiety disorder, unspecified; E78.5 Hyperlipidemia, unspecified; I10 Essential (primary) hypertension; Z79.899 Other long term (current) drug therapy; Z88.8 Allergy status to other drugs, medicaments and biological substances; F17.210 Nicotine dependence, cigarettes, uncomplicated
CPT/HCPCS: 71045; 80053; 84484; 85025; 93005; 96374; 99284; U0004

== ENCOUNTER → 2019-12-02 10:19 | Outpatient (CLI) | payer OTHER, SELFPAY ==
--- NOTE | 2019-12-02 10:24 | XR_ITS ---
PROCEDURE: XR ANKLE WT BEARING LT MIN 3V CLINICAL INDICATION: pain COMPARISON: CR ANKL3 ANKLE-LT-3 VIEWS from 11/01/2016 CR ANKWBL3 XR ankle wt bearing LT min 3V from 05/04/2018 CR ANKWBR3 XR ankle wt bearing RT min 3V from 05/04/2018 CR XR FOOT WT BEARING LT 3V from 12/02/2019 FINDINGS: Bones: No fracture or dislocation. No lytic or blastic change. There is normal mineralization. Joints: The joint spaces are well-preserved. No significant degenerative/arthritic changes. No erosive changes evident. Other findings:There are hypertrophic changes along the distal and lateral aspect of the lateral malleolus not significantly changed. IMPRESSION: No acute findings. Dictated by: Sohail Biswas MD 12/02/2019 17:27 Sohail Biswas MD in [place] 12/02/2019 17:27
--- NOTE | 2019-12-02 10:24 | XR_ITS ---
PROCEDURE: XR ANKLE WT BEARING RT MIN 3V CLINICAL INDICATION: pain COMPARISON: CR ANKL3 ANKLE-LT-3 VIEWS from 11/01/2016 CR ANKWBL3 XR ankle wt bearing LT min 3V from 05/04/2018 CR ANKWBR3 XR ankle wt bearing RT min 3V from 05/04/2018 CR XR FOOT WT BEARING RT 3V from 12/02/2019 FINDINGS: Bones: No fracture or dislocation. No lytic or blastic change. There is normal mineralization. Joints: The joint spaces are well-preserved. No significant degenerative/arthritic changes. No erosive changes evident. Other findings:Small well-circumscribed calcific density is present at the tip of the medial malleolus consistent with an accessory ossification center or an old fracture not significantly changed. Images of the right foot show an accessory ossification center at the cuboid region. There is good alignment. A small calcaneal spur is present. No acute fracture or dislocation apparent. IMPRESSION: No acute findings. Dictated by: Sohail Biswas MD 12/02/2019 17:26 Sohail Biswas MD in [place] 12/02/2019 17:26
== END ==
PROVIDERS: PCP Emergency Medicine; Visit Provider Podiatrist
DX: M19.072 Primary osteoarthritis, left ankle and foot (principal); M19.071 Primary osteoarthritis, right ankle and foot; M72.2 Plantar fascial fibromatosis
CPT/HCPCS: 73610; 73630

== ENCOUNTER → 2020-01-19 09:16 | Outpatient (CLI) | payer OTHER, SELFPAY ==
--- NOTE | 2020-01-19 09:16 | MM_ITS ---
PROCEDURE: MM DIG SCREENING MAMM BI W/CAD Digital Breast Tomosynthesis Included CLINICAL INDICATION: screening There is a history of breast cancer patient's maternal grandmother and paternal grandmother both diagnosed after menopause. There has been a previous cyst aspiration right breast and a biopsy left breast with benign findings. COMPARISON: MG DIG MAMMO BILAT SCREENING from 01/27/2014 MG DMSB DIG MAMM-SCREEN CARMELITA W/CAD from 12/06/2016 MG MM DIG SCREENING MAMM BI W/CAD from 11/27/2018 TECHNIQUE: Standard CC and MLO images and 3D Tomosynthesis was obtained. R2 CAD reviewed. FINDINGS: Mild scattered fibroglandular densities are seen in both breasts on a background of primarily fatty breast parenchyma. There is a biopsy clip left breast. There are few benign-appearing calcifications in each breast. There is no suspicious lesion in either breast and no suspicious microcalcifications. There are stable small nodes in both axilla. IMPRESSION: Fibrofatty parenchyma with no suspicious lesions seen BI-RAD Category: 2 Benign Finding(s) FOLLOW-UP: 1YR 1 Year Follow-up (A letter has been sent to the patient regarding results of the study.) Dictated by: Dr. Gonsalo Richard MD 01/21/2020 10:20 Dr. Gonsalo Richard MD in [place] 01/21/2020 10:20
== END ==
PROVIDERS: PCP Emergency Medicine; Visit Provider Emergency Medicine
DX: Z12.31 Encounter for screening mammogram for malignant neoplasm of breast (principal)
CPT/HCPCS: 77063; 77067

== ENCOUNTER → 2020-03-09 10:33 | Outpatient (CLI) | payer OTHER, SELFPAY ==
--- NOTE | 2020-03-09 10:33 | US_ITS ---
APPROVED REPORT Exam Type: Ankle to Brachial Index Indications Claudication: Bilaterally Rest Pain: Bilaterally Current Smoker Risk Factors Hypertension Hyperlipidemia Obesity Current Smoker Pressures/Indices Right Indices Left Indices Brachial 127.00 mmHg Brachial 132.00 mmHg Low Thigh 121.00 mmHg 0.92 Low Thigh 121.00 mmHg 0.92 Calf 111.00 mmHg 0.84 Calf 124.00 mmHg 0.94 Ankle(PT) 127.00 mmHg 0.96 Ankle(PT) 116.00 mmHg 0.88 Ankle(DP) 130.00 mmHg 0.98 Ankle(DP) 128.00 mmHg 0.97 Digit 106.00 mmHg 0.80 Digit 103.00 mmHg 0.78 Findings RT ANTONIA=1.0 LT ANTNOIA=1.0 RT TBI=0.8 LT TBI=0.8 Normal pulses Normal waveforms Conclusion RT ANTONIA=1.0 LT ANTONIA=1.0 RT TBI=0.8 LT TBI=0.8 Normal pulses Normal waveforms Normal appearing resting noninvasive lower extremity arterial study. Electronically signed by : Sohail Biswas MD 03/09/2020 18:14:53
== END ==
PROVIDERS: PCP Emergency Medicine; Visit Provider Emergency Medicine
DX: M79.605 Pain in left leg (principal); M79.604 Pain in right leg
CPT/HCPCS: 93923

== ENCOUNTER → 2020-04-05 13:33 | Outpatient (CLI) | payer OTHER, SELFPAY ==
[2020-04-06 08:00] LABS: Covid-19 Nasal PCR Sendout P&C NEGATIVE
== END ==
PROVIDERS: PCP Emergency Medicine; Visit Provider Emergency Medicine
DX: Z03.818 Encounter for observation for suspected exposure to other biological agents ruled out (principal)
CPT/HCPCS: U0004

== ENCOUNTER 2020-06-03 09:35 | Emergency (ER) | payer OTHER, SELFPAY ==
[2020-06-03 09:40] VITALS: BP 130/78; PULSE 87; RESP 18; TEMP 37; O2SAT 98; BMI 35.8
--- NOTE | 2020-06-03 10:04 | HMH.EDUTC ---
[facility] [place] Disposition Clinical Impression: Encounter for laboratory testing for COVID-19 virus Sinusitis Qualifiers: Sinusitis location: unspecified location Chronicity: unspecified Qualified Code(s): J32.9 - Chronic sinusitis, unspecified Disposition: Home, Self-Care Condition on Discharge: Good Instructions: Nausea and Vomiting-Adult, Ondansetron, Azithromycin, DI for COVID-19 (Suspected or Confirmed ), Coronavirus Disease 2019, Preventing the Spread of Coronavirus Discharge Instructions Additional Instructions: *Monitor Temp, Over the counter Motrin or Tylenol as directed/as needed Tylenol every 4 hours and Motrin every 6 hours (as long as your family doctor has told you that you can take it) for fever or pain. and straight to ER if unable to lower temp less than 101.0 after medication given *Warm salt water gargles may help to soothe the throat *Throat Lozenges *Warm fluids like tea with honey may help to soothe the throat *Sleep elevated *Humidifier/Vaporizer *Flonase 2 sprays in each nostril daily but be aware that it may take 2-3 days before you notice improvement Follow up IMMEDIATELY for new or worsening symptoms or no Noticeable improvement over the next 48-72 hours. 911 for difficulty breathing or swallowing You were tested for today for COVID19 your test result should be back in the next 24-48 hours, you may call to the [facility] to see if your test results are back in the next 48 hours [phone] [facility] hours are 9am-9pm You was given a handout with instructions for Self Quarantine and Self isolation for while you wait on test results and what to do if they are positive If you are positive the Health Dept will be contacting you also Prescriptions: Fluticasone Propionate [Flonase 50mcg nasal spray 16gm] 1 spr NS DAILY #1 bottle Transmission Status: Pending to [facility] Azithromycin [Z-Rohan 250mg Tab] 250 mg PO DIRECTED #6 tab Transmission Status: Pending to [facility] Ondansetron [Zofran 4mg ODT] 4 mg PO TIDP PRN #6 tab PRN Reason: Nausea Transmission Status: Pending to [facility] Referrals: Nicolas Rivera MD [Primary Care Provider] - As needed Time of Disposition: 10:24 Medical Decision Making - Shiva Inquiry Pt receiving controlled substance: No Shiva was queried for this patient: No Vital Signs: 06/03/20 09:40 Temperature 98.6 F Temperature Source Oral Pulse Rate [Right Brachial] 87 Respiratory Rate 18 Blood Pressure [Right Arm] 130/78 Blood Pressure Mean [Right Arm] 95 Blood Pressure Source [Right Arm] Automatic Cuff Blood Pressure Position [Right Arm] Sitting 02 Sat by Pulse Oximetry 98 Oxygen Delivery Method Room Air - Lab Data Lab results reviewed: Yes: I reviewed the patient's lab results. Orders (Tests/Meds): ORDERS Category Date Time Status Covid-19 Nasal PCR ([facility]) Routine Lab 06/03/20 09:46 Received Medical Decision Narrative: Patient states she has taken azithromycin and zofran before and denies any complications or reactions [facility] [place] HPI - General Stated complaint: cov test Time Seen by Provider: 06/03/20 10:04 Mode of Arrival: Ambulatory Source of Information: Patient Limitations: No Limitations Description of Symptoms (Recalled from Triage Doc. by RN): COVID TEST D/T EXPOSURE 1 WEEK AGO. C/O BODY ACHES, CHILLS, NAUSEA, AND VOMITING X 3 DAYS HEENT Symptoms (Recalled from RN notes): No Resp Symptoms (Recalled from RN notes): No Skin Symptoms (Recalled from RN notes): No MS Symptoms (Recalled from RN notes): No Functional Status (Recalled from RN notes): WNL - History of Present Illness Provider Complaint: Patient states that she has been having sinus pain and pressure, nausea, sore throat, body aches and chills along with headache and vomiting State that she was around someone about 2 weeks ago that was positive for COVID States that today she was still feeling bad and wanted to come in and get tested - Related Data Home Medic
[2020-06-03 10:23] LABS: UTC Influenza A Antigen Negative (Negative); UTC Influenza B Antigen Negative (Negative)
[2020-06-03 10:25] VITALS: BP 130/78; PULSE 87; RESP 18; TEMP 37; O2SAT 98
== END 2020-06-03 10:30 | disposition home or self-care (01) ==
PROVIDERS: Emergency Provider Nurse Practitioner; PCP Emergency Medicine
DX: Z20.822 Contact with and (suspected) exposure to COVID-19 (principal); J32.9 Chronic sinusitis, unspecified; I10 Essential (primary) hypertension; E78.5 Hyperlipidemia, unspecified; F41.8 Other specified anxiety disorders; K21.9 Gastro-esophageal reflux disease without esophagitis; I25.10 Atherosclerotic heart disease of native coronary artery without angina pectoris; J44.9 Chronic obstructive pulmonary disease, unspecified; Z88.6 Allergy status to analgesic agent; Z79.899 Other long term (current) drug therapy
CPT/HCPCS: 87804; 99202; G0463; U0003

== ENCOUNTER → 2020-07-30 11:32 | Outpatient (CLI) | payer OTHER, SELFPAY ==
[2020-07-30 13:50] LABS: Chol/HDL Ratio 4.2 (1-3.5); Cholesterol 208 mg/dl (140-200); HDL Cholesterol 50 mg/dl (40-60); Triglycerides 149 mg/dl (30-150); VLDL Cholesterol 30 mg/dL (0-40)
[2020-07-30 14:01] LABS: Direct LDL Cholesterol 126.61 mg/dL (100-129)
== END ==
PROVIDERS: Visit Provider Internal Medicine Cardiovascular Disease
DX: E78.5 Hyperlipidemia, unspecified (principal)
CPT/HCPCS: 36415; 80061

== ENCOUNTER → 2020-08-20 11:14 | Outpatient (CLI) | payer OTHER, SELFPAY ==
--- NOTE | 2020-08-20 11:19 | XR_ITS ---
PROCEDURE: XR KNEE RT 4V CLINICAL INDICATION: RT knee pain COMPARISON: No exams were available for comparison FINDINGS: No fracture or dislocation. No lytic or blastic change. There is normal mineralization. Mild medial compartment joint space loss and osteophyte formation is noted. No suprapatellar joint effusion. IMPRESSION: Minor degenerative changes of the knee joint. No acute fractures or dislocations. Dictated by: Gardenia Azevedo 08/20/2020 12:24 Gardenia Azevedo in [place] 08/20/2020 12:24
== END ==
PROVIDERS: PCP Emergency Medicine; Visit Provider Orthopaedic Surgery
DX: M25.561 Pain in right knee (principal)
CPT/HCPCS: 73564

== ENCOUNTER → 2020-08-25 17:08 | Outpatient (CLI) | payer OTHER, SELFPAY ==
[2020-08-25 18:30] LABS: Amphetamine/Metha Screen,Urine Negative ng/ml (<1000)
[2020-08-25 18:31] LABS: Barbiturates Screen,Urine Negative ng/ml (<200)
[2020-08-25 18:32] LABS: Benzodiazepines Screen,Urine Negative ng/ml (<200)
[2020-08-25 18:33] LABS: Cannabinoid Screen,Urine Negative ng/ml (<50)
[2020-08-25 18:34] LABS: Cocaine Screen,Urine Negative ng/ml (<300); Methadone Screen,Urine Negative ng/ml (<300)
[2020-08-25 18:35] LABS: Opiate Screen,Urine Positive ng/ml (<300)
[2020-08-25 18:36] LABS: Phencyclidine Screen,Urine Negative ng/ml (<25)
== END ==
PROVIDERS: Visit Provider Emergency Medicine
DX: Z79.899 Other long term (current) drug therapy (principal)
CPT/HCPCS: 80305

== ENCOUNTER → 2020-10-20 17:16 | Outpatient (CLI) | payer OTHER, SELFPAY ==
[2020-10-20 19:15] LABS: Barbiturates Screen,Urine Negative ng/ml (<200); Benzodiazepines Screen,Urine Negative ng/ml (<200)
[2020-10-20 19:16] LABS: Amphetamine/Metha Screen,Urine Negative ng/ml (<1000)
[2020-10-20 19:22] LABS: Cannabinoid Screen,Urine Negative ng/ml (<50); Cocaine Screen,Urine Negative ng/ml (<300)
[2020-10-20 19:23] LABS: Methadone Screen,Urine Negative ng/ml (<300)
[2020-10-20 19:24] LABS: Opiate Screen,Urine Positive ng/ml (<300); Phencyclidine Screen,Urine Negative ng/ml (<25)
== END ==
PROVIDERS: Visit Provider Emergency Medicine
DX: Z79.899 Other long term (current) drug therapy (principal)
CPT/HCPCS: 80305

== ENCOUNTER → 2020-12-15 18:30 | Outpatient (CLI) | payer OTHER, SELFPAY ==
[2020-12-15 19:19] LABS: Amphetamine/Metha Screen,Urine Negative ng/ml (<1000)
[2020-12-15 19:20] LABS: Barbiturates Screen,Urine Negative ng/ml (<200)
[2020-12-15 19:21] LABS: Benzodiazepines Screen,Urine Negative ng/ml (<200); Cocaine Screen,Urine Negative ng/ml (<300)
[2020-12-15 19:22] LABS: Cannabinoid Screen,Urine Positive ng/ml (<50)
[2020-12-15 19:23] LABS: Phencyclidine Screen,Urine Negative ng/ml (<25)
[2020-12-15 19:24] LABS: Opiate Screen,Urine Positive ng/ml (<300)
[2020-12-15 19:32] LABS: Methadone Screen,Urine Negative ng/ml (<300)
== END ==
PROVIDERS: Visit Provider Emergency Medicine
DX: Z79.899 Other long term (current) drug therapy (principal)
CPT/HCPCS: 80305

== ENCOUNTER → 2020-12-23 09:53 | Outpatient (CLI) | payer OTHER, SELFPAY | PROVIDERS: PCP Emergency Medicine; Visit Provider Nurse Practitioner | DX: Z11.52 Encounter for screening for COVID-19 (principal) | CPT/HCPCS: C9803; U0003; U0005 ==

== ENCOUNTER → 2021-02-14 21:34 | Outpatient (CLI) | payer OTHER, SELFPAY ==
[2021-02-14 23:00] LABS: Amphetamine/Metha Screen,Urine Negative ng/ml (<1000)
[2021-02-14 23:01] LABS: Barbiturates Screen,Urine Negative ng/ml (<200)
[2021-02-14 23:02] LABS: Benzodiazepines Screen,Urine Negative ng/ml (<200); Cannabinoid Screen,Urine Positive ng/ml (<50)
[2021-02-14 23:03] LABS: Cocaine Screen,Urine Negative ng/ml (<300)
[2021-02-14 23:04] LABS: Methadone Screen,Urine Negative ng/ml (<300); Opiate Screen,Urine Positive ng/ml (<300)
[2021-02-14 23:06] LABS: Phencyclidine Screen,Urine Negative ng/ml (<25)
== END ==
PROVIDERS: Visit Provider Emergency Medicine
DX: Z79.899 Other long term (current) drug therapy (principal)
CPT/HCPCS: 80305

== ENCOUNTER 2021-03-12 12:56 | Emergency (ER) | payer OTHER, SELFPAY ==
--- NOTE | 2021-03-12 14:12 | XR_ITS ---
PROCEDURE INFORMATION: Exam: XR Left Knee Exam date and time: 03/12/2021 2:16 PM Age: 55 years old Clinical indication: Injury or trauma; Blunt trauma; Knee; Left; Injury date: 03/12/21; Injury details: Fall, pain TECHNIQUE: Imaging protocol: XR Left knee. Views: 3 views. COMPARISON: US ARTERIAL LOWER EXT REST 03/09/2020 10:40 AM FINDINGS: Bones/joints: There is no evidence of acute fracture. There is no evidence of joint malalignment or dislocation. Soft tissues: No focal soft tissue swelling. IMPRESSION: 1. No evidence of acute fracture. 2. No evidence of acute dislocation.
[2021-03-12 14:23] VITALS: BP 126/72; PULSE 78; RESP 18; TEMP 36.6; O2SAT 98; BMI 35.3
--- NOTE | 2021-03-12 14:32 | HMH.EDUTC ---
[facility] [place] Clinical Impression: Left anterior knee pain Left knee sprain Qualifiers: Encounter type: initial encounter Involved ligament of knee: unspecified ligament Qualified Code(s): S83.92XA - Sprain of unspecified site of left knee, initial encounter Disposition: Home, Self-Care Condition on Discharge: Good Instructions: Knee Sprain, DI for Knee Sprain Additional Instructions: Rest the extremity, apply ice for 15 minutes as tolerated three or four times per day, Wear the eda wrap for compression, Elevate the extremity as tolerated while you are resting. Follow up with Dr. Azevedo (orthopedics). Sometimes there can be fractures that don't show up well on the first set of x-rays. So, you should follow up if you continue to have symptoms. I put in a referral but you need to call his office and schedule an appointment. Follow up with your regular doctor. GO TO THE ER FOR ANY WORSENING SYMPTOMS Referrals: Nicolas Rivera MD [Primary Care Provider] - Elbert Azevedo MD [Staff Physician] - Forms: Work/School Release Time of Disposition: 15:38 Medical Decision Making - Medical Records Medical records reviewed: No: I reviewed the patient's medical records. - Shiva Inquiry Pt receiving controlled substance: No Vital Signs: 03/12/21 14:23 03/12/21 15:39 Temperature 97.9 F 97.9 F Temperature Source Oral Pulse Rate 78 Pulse Rate [Left] 78 Respiratory Rate 18 18 Blood Pressure 126/72 Blood Pressure [Right Arm] 126/72 Blood Pressure Mean [Right Arm] 90 02 Sat by Pulse Oximetry 98 - Radiology Data #1 Image(s): Knee Image Reviewed: Yes I reviewed the patient's radiology image, Yes I have reviewed radiologist's interpretation Preliminary Findings: Normal/NAD, No Fracture Seen PROCEDURE INFORMATION: Exam: XR Left Knee Exam date and time: 03/12/2021 2:16 PM Age: 55 years old Clinical indication: Injury or trauma; Blunt trauma; Knee; Left; Injury date: 03/12/21; Injury details: Fall, pain TECHNIQUE: Imaging protocol: XR Left knee. Views: 3 views. COMPARISON: US ARTERIAL LOWER EXT REST 03/09/2020 10:40 AM FINDINGS: Bones/joints: There is no evidence of acute fracture. There is no evidence of joint malalignment or dislocation. Soft tissues: No focal soft tissue swelling. IMPRESSION: 1. No evidence of acute fracture. 2. No evidence of acute dislocation. [facility] [place] - General Stated complaint: AO 03/11 home injury to lt knee Time Seen by Provider: 03/12/21 14:34 Mode of Arrival: Ambulatory Source of Information: Patient Limitations: No Limitations Description of Symptoms (Recalled from Triage Doc. by RN): pt c/o of L knee pain. pt states she fell last night at home. HEENT Symptoms (Recalled from RN notes): No Resp Symptoms (Recalled from RN notes): No Skin Symptoms (Recalled from RN notes): No MS Symptoms (Recalled from RN notes): Yes (L knee pain) Functional Status (Recalled from RN notes): wnl - History of Present Illness Provider Complaint: She states that she tripped and fell last night at her home. She has had left knee pain since then. She is able to walk on the knee, but bearing weight on it makes it hurt worse. - Related Data Home Medications Medication Instructions Recorded Confirmed Aspirin [Aspirin 81mg chewable 81 mg PO DAILY 04/28/19 03/10/21 tab] Previous Rx's Medication Instructions Recorded triamcinolone acetonide 0.1 % 1 applic TOPICAL QID PRN 30 Days 02/24/20 topical cream #30 g fluticasone propionate 50 See Rx Instructions .ROUTE 03/08/20 mcg/actuation nasal .COMPLEX #15.8 ml spray,suspension mupirocin 2 % topical ointment See Rx Instructions .ROUTE 03/31/20 .COMPLEX #22 g Ondansetron [Zofran 4mg ODT] 4 mg PO TIDP PRN #6 tab 06/03/20 atorvastatin 80 mg tablet See Rx Instructions .ROUTE 09/25/20 .COMPLEX #90 tab spironolacton
[2021-03-12 15:39] VITALS: BP 126/72; PULSE 78; RESP 18; TEMP 36.6
== END 2021-03-12 15:42 | disposition home or self-care (01) ==
PROVIDERS: Emergency Provider Nurse Practitioner Family; PCP Emergency Medicine
DX: S83.92XA Sprain of unspecified site of left knee, initial encounter (principal); W01.0XXA Fall on same level from slipping, tripping and stumbling without subsequent striking against object, initial encounter; Y92.019 Unspecified place in single-family (private) house as the place of occurrence of the external cause; I10 Essential (primary) hypertension; E78.5 Hyperlipidemia, unspecified; F17.210 Nicotine dependence, cigarettes, uncomplicated; K21.9 Gastro-esophageal reflux disease without esophagitis; F33.1 Major depressive disorder, recurrent, moderate; Z79.899 Other long term (current) drug therapy
CPT/HCPCS: 73562; 99202; G0463

== ENCOUNTER 2021-03-27 11:25 | Observation (INO) | payer OTHER, SELFPAY ==
[2021-03-27] VITALS (13 sets, daily range): BP systolic 91–131; BP diastolic 55–92; PULSE 65–108; RESP 12–22; TEMP 36.6–37.1; O2SAT 95–100; BMI 35.3; BMI 35.4
--- NOTE | 2021-03-27 | ECG_ITS ---
APPROVED REPORT Exam: Resting ECG HR:94 bpm ECG Measurements Heart Rate 94 AXES OK 132 P 40 QRSd 86 QRS 85 QT 336 T 23 QTc 420 Conclusion Normal sinus rhythm with sinus arrhythmia ST abnormality, ?electrolyte effect Abnormal ECG Electronically signed by : Zain Magaña MD 03/27/2021 14:46:43
--- NOTE | 2021-03-27 11:30 | HMH.EDGENADL ---
ED Disposition Clinical Impression: Unstable angina Disposition: Admitted as Observation Condition on Discharge: Fair - Critical Care Critical Care Time: No Attestation: On , the high probability of a clinically significant, sudden or life threatening deterioration of the following system(s) required my full and direct attention, intervention and personal management. The time I documented below is in addition to time spent performing reported procedures but includes the following listed in this critical care notation. Medical Decision Making - Medical Records Medical records reviewed: Yes: I reviewed the patient's medical records. MR Comment: Reviewed most recent cardiac cath report, see below, and most recent cardiology visit note 05/05/2019. - Shiva Inquiry Pt receiving controlled substance: No Vital Signs: 03/27/21 11:27 03/27/21 11:47 03/27/21 11:48 Temperature 98.3 F Temperature Source Oral Pulse Rate 93 H 94 H Pulse Rate [Right Radial] 108 H Respiratory Rate 22 12 14 Blood Pressure 100/72 L 108/68 L Blood Pressure [Right Arm] 131/92 H Blood Pressure Mean 77 73 Blood Pressure Mean [Right Arm] 105 Blood Pressure Source [Right Arm] Automatic Cuff Blood Pressure Position Blood Pressure Position [Right Arm] Sitting 02 Sat by Pulse Oximetry 100 98 99 Oxygen Delivery Method Room Air 03/27/21 11:49 03/27/21 12:09 03/27/21 12:30 Temperature Temperature Source Pulse Rate 78 89 87 Pulse Rate [Right Radial] Respiratory Rate 12 12 Blood Pressure 97/68 L 94/70 L 96/67 L Blood Pressure [Right Arm] Blood Pressure Mean 75 72 Blood Pressure Mean [Right Arm] Blood Pressure Source [Right Arm] Blood Pressure Position Sitting Blood Pressure Position [Right Arm] 02 Sat by Pulse Oximetry 98 97 Oxygen Delivery Method 03/27/21 13:00 Temperature Temperature Source Pulse Rate 90 Pulse Rate [Right Radial] Respiratory Rate 12 Blood Pressure 111/62 Blood Pressure [Right Arm] Blood Pressure Mean 82 Blood Pressure Mean [Right Arm] Blood Pressure Source [Right Arm] Blood Pressure Position Blood Pressure Position [Right Arm] 02 Sat by Pulse Oximetry 97 Oxygen Delivery Method - Lab Data Lab Results 03/27/21 11:29: WBC 11.7 H, RBC 4.34, Hgb 13.8, Hct 41.7, MCV 96.1, MCH 31.7 H, MCHC 33.0, RDW 12.9, Plt Count 557 H, MPV 7.2 L, Neut % (Auto) 69.2, Lymph % (Auto) 22.8, [place] % (Auto) 5.3, Eos % (Auto) 1.8, Baso % (Auto) 0.8, Neut # (Auto) 8.1 H, Lymph # (Auto) 2.7, [place] # (Auto) 0.6, Eos # (Auto) 0.2, Baso # (Auto) 0.1 03/27/21 11:29: Sodium 136, Potassium 4.7, Chloride 102, Carbon Dioxide 27, Anion Gap 11.7, BUN 17, Creatinine 0.70, Estimated Creat Clear 144, Estimated GFR 87, Est GFR ( Amer) 106, Glucose 106 H, Calcium 9.6, Troponin I < 0.01 Result diagrams: 03/27/21 11:29 03/27/21 11:29 Orders (Tests/Meds): ED MEDICATIONS Generic Name Dose Route Start Last Admin Trade Name Freq PRN Reason Stop Dose Admin Nitroglycerin 0.4 mg 03/27/21 11:44 Nitroglycerin 0.4mg Sl Tablet SL 04/26/21 11:43 Q5MINP PRN Chest Pain Discontinued Medications Generic Name Dose Route Start Last Admin Trade Name Freq PRN Reason Stop Dose Admin Aspirin 243 mg 03/27/21 11:34 03/27/21 11:36 Aspirin 81mg Chewable Tablet PO 03/27/21 11:35 243 mg ONCE ONE Administration Sodium Chloride 1,000 ml 03/27/21 12:51 03/27/21 12:53 Sodium Chloride 0.9% 1000ml Bag IV 03/27/21 12:52 1,000 ml BOLUS ONE Administration ORDERS Category Date Time Status Rapid PCR Covid and Flu A/B Stat Lab 03/27/21 12:48 Received Troponin I Q3H Lab 03/27/21 14:45 Ordered Troponin I Q3H Lab 03/27/21 17:45 Ordered CARDIAC CATHETERIZATION DATE OF CATHETERIZATION:10/24/2018 11:22 AM PROCEDURES: 1. Left heart catheterization 2. Left ventriculogram 3. Selective coronary angiogram 4. Angioplasty to the right coronary artery
--- NOTE | 2021-03-27 11:34 | XR_ITS ---
PROCEDURE INFORMATION: Exam: XR Chest Exam date and time: 03/27/2021 11:34 AM Age: 55 years old Clinical indication: Pain; Angina pectoris; Additional info: Chest pain TECHNIQUE: Imaging protocol: XR of the chest. Views: 2 views. COMPARISON: CR XR CHEST PORTABLE 10/22/2019 3:20 PM FINDINGS: Lungs: See Heart/Mediastinum finding. Pleural spaces: Unremarkable. No pleural effusion. No pneumothorax. Heart/Mediastinum: Subtle silhouette of the right heart border possibly related to pericardial fat. Subtle middle lobe infiltrate not excluded. Lungs are otherwise well aerated. Bones/joints: Unremarkable. IMPRESSION: Subtle silhouette of the right heart border possibly related to pericardial fat. Subtle middle lobe infiltrate not excluded. Lungs are otherwise well aerated.
--- NOTE | 2021-03-27 11:37 | PC.NURSE ---
pt states she took 81 mg of aspirin at home today. 243mg administered per protocol
[2021-03-27 11:42] LABS: Basophils # 0.1 K/mm3 (0-0.2); Basophils % 0.8 % (0.1-2.0); Eosinophils # 0.2 K/mm3 (0.0-0.4); Eosinophils % 1.8 % (0.1-12.0); Hematocrit 41.7 % (37.0-47.0); Hemoglobin 13.8 g/dL (12.2-16.2); Lymphocytes # 2.7 K/mm3 (0.7-4.5); Lymphocytes % 22.8 % (10-50); Mean Corpuscular Hemoglobin 31.7 pg (27.0-31.2); Mean Corpuscular Volume 96.1 fl (81-99); Mean Platelet Volume 7.2 fl (7.4-10.4); Monocytes # 0.6 K/mm3 (0.1-1.0); Monocytes % 5.3 % (1.7-9.3); Neutrophils # 8.1 K/mm3 (1.8-7.8); Neutrophils % 69.2 % (37.0-80.0); Platelet Count 557 K/mm3 (142-424); Red Blood Count 4.34 M/mm3 (4.20-5.40); Red Cell Distribution Width 12.9 % (11.5-17.5); White Blood Count 11.7 K/mm3 (4.8-10.8)
[2021-03-27 11:43] LABS: Chloride 102 mmol/L (98-107); Sodium 136 mmol/L (136-145)
[2021-03-27 11:44] LABS: Potassium 4.7 mmoL/L (3.5-5.1)
[2021-03-27 11:46] LABS: Blood Urea Nitrogen 17 mg/dl (7-17); Creatinine Clearance Estimated 144 mL/min (50-200); Estimated Glomerular Filt Rate 87 ml/min (>60); GFR (African American) 106 ML/MIN (>60)
[2021-03-27 11:47] LABS: Anion Gap 11.7 mEq/L (5-15); Calcium 9.6 mg/dl (8.4-10.2); Carbon Dioxide 27 mmol/L (22.0-30.0); Glucose 106 mg/dl (74-100)
[2021-03-27 12:06] LABS: Troponin I < 0.01 ng/ml (0.00-0.034)
--- NOTE | 2021-03-27 12:52 | PC.NURSE ---
garry has been notified that we are admitting pt and needing a room
[2021-03-27 12:59] LABS: Coronavirus 19, PCR Not Detected (NotDetected); Influenza A, PCR Not Detected (NotDetected); Influenza B, PCR Not Detected (NotDetected)
--- NOTE | 2021-03-27 13:00 | PC.NURSE ---
Called dietary for a lunch tray for pt
--- NOTE | 2021-03-27 13:34 | PC.NURSE ---
Attempted to call report to 2nd floor, but no answer on the phone.
--- NOTE | 2021-03-27 13:49 | PC.NURSE ---
Called report to Jackelyn on 2nd floor
--- NOTE | 2021-03-27 13:58 | PC.NURSE ---
pt arrived to the floor at this time
[2021-03-27 16:24] LABS: Troponin I < 0.01 ng/ml (0.00-0.034)
[2021-03-27 18:24] LABS: Troponin I < 0.01 ng/ml (0.00-0.034)
[2021-03-28] VITALS (16 sets, daily range): BP systolic 102–122; BP diastolic 42–70; PULSE 56–76; RESP 14–20; TEMP 36.6–37.1; O2SAT 96–100; BMI 77.7; BMI 35.2
--- NOTE | 2021-03-28 | CA_ITS ---
APPROVED REPORT EXAM: Comprehensive 2D, Doppler, and color-flow Echocardiogram Spear Fisher: Stephy Manjarrez CRT Ht: 5 ft 6 in Wt: 219lbs BSA: 2.08 BP: 108/68 mmHg Indications: Chest Pain, Obesity, Smoker 2D Dimensions LVOT 2.04 cm (M/F) 1.5-2.5 LA Volume 34.30 mL LA Volume Index 16.50 mL/m2 (M/F) 16-34 M-Mode Dimensions RVDd 2.50 cm (0.9-2.6) LA Diam 3.69 cm (1.9-4.0) LVDd 5.05 cm (3.5-5.7) Ao Diam 3.61 cm (2.0-3.7) LVDs 3.64 cm (3.5-5.7) IVSd 1.21 cm (0.6-1.1) PWd 1.17 cm (0.6-1.1) EF (Teich) 53.80% FS 27.90% EDV (Teich) 121.00 mL TAPSE 1.74 (<1.7) ESV (Teich) 55.90 mL LV Diastology E Decel Time 183.00 (160-240 msec) E/A Ratio 1.17 MED E' 11.90 (< 7 cm/sec) MED A' 7.80 cm/s E'/MED E' Ratio 7.34 (>14) LAT E' 11.20 (<10 cm/sec) LAT A' 9.00 cm/s E/LAT E' Ratio 7.80 (>14) Aortic Valve AO Peak GR. 5.70 mmHg Mitral Valve MV A Velocity 75.00 (40-130 cm/s) E/A Ratio 1.17 MV Decel. Time 183.00 (160-240 ms) Pulmonary Valve PV Peak Velocity 104.00 (50-150 cm/s) Tricuspid Valve TR P. Velocity 203.00 cm/s RAP Estimate 10.00 mmHg RVSP 26.50 mmHg Left Ventricle Left atrium normal size, left ventricle is normal size, there is no concentric left ventricular hypertrophy, visually estimated ejection fraction 55% with no regional wall motion abnormality, diastolic parameters are within normal range. Right Ventricle Right atrium and right ventricle are normal size and contractility. Aortic Valve Aortic valve is grossly normal. There is no aortic stenosis or aortic insufficiency. Mitral Valve Mitral valve is grossly normal, there is trace mitral regurgitation. Tricuspid Valve Tricuspid grossly normal, there is trace tricuspid regurgitation. Pulmonic Valve Pulmonic valve is poorly visualized. Great Vessels Aortic root is normal size. Inferior vena cava is poorly visualized. Pericardium No significant pericardial effusion noted. Conclusion 1. Normal left ventricular size, preserved left ventricular systolic function, visually estimated ejection fraction 55% with no regional wall motion abnormality, diastolic parameters are within normal range. 2. Trace mitral and tricuspid regurgitation. 3. No significant pericardial effusion noted. Electronically signed by : Binu Sanchez MD 03/28/2021 20:48:39
--- NOTE | 2021-03-28 | IR_ITS ---
APPROVED REPORT Patient Location: Inpatient Director Of Education And Training: DEANA Maxwell RT (R) PROCEDURES Left heart catheterization Left ventriculogram Selective coronary angiogram INDICATION Known coronary artery disease, Admission for unstable angina/acute coronary syndrome Informed consent was obtained prior to the procedure. COMPLICATIONS NONE Estimated Blood Loss: LESS THAN 10 ML TECHNIQUE One percent lidocaine used to anesthetize the right anterior aspect of the wrist. The right radial artery was accessed via the Seldinger technique. A 6 Macedonian sheath was placed in the right radial artery. 2.5 mg of verapamil, 800 mcg of nitroglycerin, 1mg Lidocaine and 5000 U Heparin were given through the arterial sheath. The Poppa catheter was also used to perform left heart catheterization, left ventriculogram and selective coronary angiogram. At the end of the procedure the sheath was removed good hemostasis was achieved using Traclet band, patient was transferred to the postop holding area in stable condition. ANGIOGRAPHIC RESULTS The left main artery Normal The left anterior descending artery Has proximal and mid vessel 20% stenosis The circumflex artery Nondominant gives rise to a moderate first obtuse marginal artery and a large second obtuse marginal artery. The body the circumflex artery is normal however the first obtuse marginal artery has an ostial 40 to 50% stenosis followed by a proximal 40% stenosis which is unchanged from the previous heart cath. The second obtuse marginal artery has a proximal concentric 50 to 60% stenosis and is unchanged from previous cardiac catheterization The right coronary artery Is dominant with proximal and mid vessel 50 to 60% stenoses and then distally occluded with the distal vessel filling via [id number] collaterals The REYNA ventriculogram reveals Hyperdynamic 75% The left ventricular end-diastolic pressure 25 to 30 mmHg IMPRESSION Unchanged coronary artery disease as described above Hyperdynamic ventricle Moderate to severe elevated LVEDP consistent with diastolic dysfunction Patient angina pectoris stems from a combination of endothelial dysfunction from ongoing tobacco usage as well as diastolic dysfunction with hyperdynamic ventricle and elevated LVEDP. PLAN 1. Avoidance of tobacco products 2. Treatment of diastolic dysfunction 3. Aggressive risk factor modification Electronically signed by : Sim Lock MD 03/28/2021 11:16:15
--- NOTE | 2021-03-28 02:49 | PC.NURSE ---
SINCE TAKING OVER CARE OF PT AT 0100, PT HAS BEEN INTERMITTENTLY RESTING IN BED. HAS C/O INTERMITTENT CHEST PAIN, AND DOMINGUEZ. TX PER JUN. ON REASSESSMENT, PT ASLEEP IN BED. UP INDEPENDENTLY IN ROOM. NSR ON TELE. VSS WILL CONTINUE TO MONITOR.
--- NOTE | 2021-03-28 07:26 | HMH.PHAVTE ---
[facility] Pharmacy VTE Monitoring - Patient Demographics Admission date: 03/27/21 Report Date: 03/28/21 Time: 07:26 Allergies/Adverse Reactions: Patient Allergies caffeine [From EXCEDRIN TENSION HEADACHE] Allergy (Intermediate, Verified 03/10/21 13:22) UNKNOWN ibuprofen [IBUPROFEN] Allergy (Unknown, Verified 03/10/21 13:22) UNKNOWN Androgenic Anabolic Steroid Adverse Reaction (Verified 03/10/21 13:22) blisters Height: 1.68 m Weight: 219.4 kg Patient Problems: Current Active Problems Unstable angina pectoris (Acute) - VTE Risk Labs: VTE Related Lab Results Hgb 13.8 g/dL (12.2-16.2) 03/27/21 11:29 Hct 41.7 % (37.0-47.0) 03/27/21 11:29 Plt Count 557 K/mm3 (142-424) H 03/27/21 11:29 BUN 17 mg/dl (7-17) 03/27/21 11:29 Creatinine 0.70 mg/dl (0.52-1.04) 03/27/21 11:29 Estimated Creat Clear 144 mL/min (50-200) 03/27/21 11:29 Clinical Trial Participant: No - Prophylaxis VTE Prophylaxis Ordered?: Yes Types of VTE Prophylaxis: TEDS Knee High
--- NOTE | 2021-03-28 07:32 | HMH.PHAINT ---
HOME MEDICATION LIST VERIFIED USING LIST FROM [facility]
--- NOTE | 2021-03-28 08:31 | HMH.CNCARD ---
History of Present Illness Consult date: 03/28/21 Requesting physician: Nicolas Rivera Consult reason: chest pain Chief complaint: unstable angina History of present illness: 55-year-old female presented to the emergency room on 03/27/2021 with complaints of unstable angina. Patient states for the past 2 weeks she has been having midsternal chest pain radiating to the throat area. Patient states chest pain also radiates down arms bilaterally. Patient does have history of coronary artery disease. Patient states she does take isosorbide on a daily basis but has been taking an additional 3-4 nitroglycerin daily due to this midsternal chest pain. Patient does complain of shortness of breath but states that she has history of COPD. Patient does smoke 1 pack of cigarettes per day. Patient states when she arrived to the emergency room and received nitroglycerin, her chest pain did resolve. Patient states chest pain has been on a pain scale of 8 out of 10. Patient states she has not followed up with cardiology for at least over a year. Patient continues to complain of chest pain during this assessment. Denies shortness of breath. Patient noted with no oxygen supplementation. No swelling noted of the lower extremities. Patient denies palpitations. Cardiac work-up was performed in the ED. Troponins were negative x3. EKG revealed sinus rhythm with no ST T wave changes. Patient remains in sinus rhythm with a heart rate of 96 bpm. Patient did undergo left heart catheterization in 2019 which revealed chronic total occlusion of the RCA, normal ejection fracture and elevated LVEDP consistent with diastolic dysfunction. Last echocardiogram was performed in 2019 which revealed EF 55% with no regional wall motion abnormality with mild MR and TR noted. Echo:CONCLUSION: 1. Mildly enlarged left atrium, normal left ventricular size, mild concentric left ventricular hypertrophy, visually estimated ejection fraction 55% with no regional wall motion abnormality, diastolic parameters are within normal range. 2. Mildly enlarged right ventricle with normal contractility. 3. Mild mitral and tricuspid regurgitation 4. No significant pericardial effusion noted. C:ANGIOGRAPHIC RESULTS: 1. The left main artery normal 2. The left anterior descending artery is proximally normal and has mid vessel 20% stenoses 3. The circumflex artery is a large nondominant vessel with 30 and 40% stenoses in the first and second obtuse marginal artery 4. The right coronary artery is a dominant vessel and and has proximal 40 followed by mid vessel 50% stenosis. Distal to the RV marginal branch is a subtotal occlusion. The posterior descending artery fills via left to right collaterals 5. The REYNA ventriculogram reveals normal 65% 6. The left ventricular end-diastolic pressure 25 mmHg IMPRESSION: 1. Chronic total occlusion of the right coronary artery 2. Normal ejection fraction 3. Elevated LVEDP consistent with diastolic dysfunction PLAN: 1. Patient requires medical management at this point. I would recommend maximizing beta blockers to get a heart rate target in the low 70s to mid 60s. Also maximize antianginal medications 2. Avoidance of tobacco products 3. Cardiac rehabilitation 4. Aggressive risk factor modification 5. Patient should remain in the hospital overnight beta blockers and antianginal medications including long-acting nitrates and or calcium channel leydi should be started. Hypertension needs to be treated accordingly. 6. Patient should be on high intensity statin with a goal LDL less than 55 H History I have reviewed the patient's past medical history: Yes Medical History: Reports:: Anxiety, Cancer, Chronic Obstructive Pulmonary Disease (COPD), Coronary Artery Disease, Depression, Gastroesophageal Reflux Disease(GERD), Hyperlipidemia, Hypertension Denies:: Diabetes Mellitus Type 1, Diabetes Mellitus Type 2, MRSA, Seizur
--- NOTE | 2021-03-28 13:54 | HMH.HPDC ---
General - General Admission date:: 03/27/21 Discharge date: 03/28/21 *Admission Date: 03/27/21 *Chief complaint: chest pain *History of present illness: 55-year-old female presented to the emergency room on 03/27/2021 with complaints of unstable angina. Patient states for the past 2 weeks she has been having midsternal chest pain radiating to the throat area. Patient states chest pain also radiates down arms bilaterally. Patient does have history of coronary artery disease. Patient states she does take isosorbide on a daily basis but has been taking an additional 3-4 nitroglycerin daily due to this midsternal chest pain. Patient does complain of shortness of breath but states that she has history of COPD. Patient does smoke 1 pack of cigarettes per day. Patient states when she arrived to the emergency room and received nitroglycerin, her chest pain did resolve. Patient states chest pain has been on a pain scale of 8 out of 10. Patient states she has not followed up with cardiology for at least over a year. Patient continues to complain of chest pain during this assessment. Denies shortness of breath. Patient noted with no oxygen supplementation. No swelling noted of the lower extremities. Patient denies palpitations.-per cardiology [facility] History I have reviewed the patient's past medical history: Yes Medical History: Reports:: Anxiety, Cancer, Chronic Obstructive Pulmonary Disease (COPD), Coronary Artery Disease, Depression, Gastroesophageal Reflux Disease(GERD), Hyperlipidemia, Hypertension Denies:: Diabetes Mellitus Type 1, Diabetes Mellitus Type 2, MRSA, Seizures *Have you ever received a pneumonia vaccine?: Yes *Have you received a flu vaccine this season?: Yes Other Medical History: Reports: Other. Denies: Blood Transfusion Reaction Laterality Cases: Left: Carpal Tunnel Release, Right: Arthroscopy Knee, Arthroscopy Shoulder Other Surgeries: Yes: No Previous Surgery, Cardiac Catheterization, Colonoscopy, , Hysterectomy-Total, Tubal Ligation, Other Amputation: No Fractures: Yes (ankle-lt) - *Social History Last grade of school completed: 11th or 12th Smoking Status: Current every day smoker Tobacco Type: cigarettes # Packs/Day (cigarettes): 1 Alcohol Intake: never Alcohol Intake Frequency:: holidays/special occasions only Substance Use Type: denies use *Occupational Status:: employed Housing: house Household Members: spouse *Travel in the last 8 weeks: None - Psychiatric History Pschychiatric History:: Reports:: Anxiety, Depression Family Hx:: Asthma, Cancer, Diabetes, Hypertension, Thyroid Disorder Review of Systems - Review of Systems Review of systems:: pertinent systems reviewed and negative unless documented below - Constitutional Reports fatigue, Denies body ache(s) - Eyes Denies blurry vision - ENT Denies abnormal hearing - *Cardiovascular Reports chest pain, Reports chest pain at rest, Reports chest pain with activity, Denies shortness of breath with activity - *Respiratory Denies change in phlegm color - *Gastrointestinal Denies abdominal pain - *Genitourinary Denies difficulty urinating - *Musculoskeletal Denies joint pain - Integumentary/Breasts Denies bleeding lesions - *Neurologic Reports weakness, Denies abnormal hearing - Psychiatric Denies abnormal sleep pattern - Endocrine Denies excessive sweating - Hematologic/Lymphatic Denies easy bruising - Allergic/Immunologic Denies itchy eyes Exam Vital signs and Labs for Last 24 Hours: Temp Pulse Resp BP Pulse Ox 98.2 F 69 14 104/47 L 100 03/28/21 08:00 03/28/21 08:00 03/28/21 08:00 03/28/21 08:00 03/28/21 08:00 Laboratory Results - last 24 hr 03/27/21 15:17: Troponin I < 0.01 03/27/21 17:55: Troponin I < 0.01 I & O for Last 24 hours: Intake & Output 03/26/21 03/27/21 03/28/21 03/29/21 11:59 11:59 11:59 11:59 Intake Total 1080 / 1080 120 / 120 Balance 1080 / 10
== END 2021-03-28 16:58 | disposition home or self-care (01) ==
LOC: ER 12:51 → 2ND 14:03
PROVIDERS: Internal Medicine; Admitting Provider Family Medicine; Emergency Provider Emergency Medicine; PCP Emergency Medicine; Visit Provider Emergency Medicine
DX: I25.110 Atherosclerotic heart disease of native coronary artery with unstable angina pectoris (principal); I10 Essential (primary) hypertension; K21.9 Gastro-esophageal reflux disease without esophagitis; E78.5 Hyperlipidemia, unspecified; F17.210 Nicotine dependence, cigarettes, uncomplicated; Z79.899 Other long term (current) drug therapy; J44.9 Chronic obstructive pulmonary disease, unspecified; Z82.49 Family history of ischemic heart disease and other diseases of the circulatory system
CPT/HCPCS: 36415; 71046; 80048; 84484; 85025; 93005; 93306; 93458; 96365; 99152; 99284; C1725; C1769; C9803; G0378; J1644; Q9967; U0003; U0005

== ENCOUNTER → 2021-04-07 08:59 | Outpatient (CLI) | payer OTHER, SELFPAY ==
--- NOTE | 2021-04-07 09:14 | US_ITS ---
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: Stephy Manjarrez CRT Indications Claudication: Rest Pain: Current Smoker Risk Factors Hypertension Hyperlipidemia Obesity Current Smoker Pressures/Indices Right Indices Left Indices Brachial 103.00 mmHg Brachial 107.00 mmHg Low Thigh 105.00 mmHg 0.98 Low Thigh 116.00 mmHg 1.08 Calf 112.00 mmHg 1.05 Calf 115.00 mmHg 1.07 Ankle(PT) 119.00 mmHg 1.11 Ankle(PT) 106.00 mmHg 0.99 Ankle(DP) 102.00 mmHg 0.95 Ankle(DP) 102.00 mmHg 0.95 Digit 106.00 mmHg 0.99 Digit 87.00 mmHg 0.81 Findings R ANTONIA 1.1 L ANTONIA 1.0 R TBI 1.0 L TBI 1.0 NORMAL WAVEFORMS AND PULSES Conclusion R ANTONIA 1.1 L ANTONIA 1.0 R TBI 1.0 L TBI 1.0 NORMAL WAVEFORMS AND PULSES Electronically signed by : Sohail Biswas MD 04/07/2021 14:53:09
== END ==
PROVIDERS: PCP Emergency Medicine; Visit Provider Urology
DX: I73.9 Peripheral vascular disease, unspecified (principal)
CPT/HCPCS: 93923

== ENCOUNTER → 2021-04-26 14:16 | Outpatient (CLI) | payer OTHER, SELFPAY ==
[2021-04-26 15:06] LABS: Amphetamine/Metha Screen,Urine Negative ng/ml (<1000)
[2021-04-26 15:07] LABS: Barbiturates Screen,Urine Negative ng/ml (<200); Benzodiazepines Screen,Urine Negative ng/ml (<200)
[2021-04-26 15:08] LABS: Cannabinoid Screen,Urine Negative ng/ml (<50)
[2021-04-26 15:09] LABS: Cocaine Screen,Urine Negative ng/ml (<300); Methadone Screen,Urine Negative ng/ml (<300)
[2021-04-26 15:10] LABS: Opiate Screen,Urine Positive ng/ml (<300)
[2021-04-26 15:11] LABS: Phencyclidine Screen,Urine Negative ng/ml (<25)
== END ==
PROVIDERS: Visit Provider Emergency Medicine
DX: Z79.899 Other long term (current) drug therapy (principal)
CPT/HCPCS: 80305

== ENCOUNTER → 2021-05-16 12:58 | Outpatient (CLI) | payer OTHER, SELFPAY ==
--- NOTE | 2021-05-16 13:02 | XR_ITS ---
FINAL REPORT CLINICAL HISTORY: pain COMPARISON: December 02, 2019 FINDINGS: RIGHT FOOT Three views of the right foot demonstrate no acute fracture or dislocation. The visualized joint spaces are normally aligned. There are mild degenerative changes. There is a plantar calcaneal spur. There is a chronic deformity of the 5th proximal phalanx consistent with sequela of prior fracture. The soft tissues are unremarkable. IMPRESSION: Mild degenerative changes. Reviewed, Interpreted and Dictated by Cruzito Balbuena III, MD Transcribed by Anh Hitchcock Authenticated by Cruzito Balbuena III, MD on 05/16/2021 01:54:04 PM [facility]
--- NOTE | 2021-05-16 13:02 | XR_ITS ---
FINAL REPORT CLINICAL HISTORY: pain FINDINGS: RIGHT ANKLE: Three views of the right ankle were obtained. There is no acute fracture or dislocation. There are mild degenerative changes. There is chronic calcification inferior to the medial malleolus. There is a plantar calcaneal spur. There is no soft tissue abnormality. IMPRESSION: Mild degenerative changes. Reviewed, Interpreted and Dictated by Cruzito Balbuena III, MD Transcribed by Anh Hitchcock Authenticated by Cruzito Balbuena III, MD on 05/16/2021 01:53:59 PM [facility]
== END ==
PROVIDERS: PCP Emergency Medicine; Visit Provider Podiatrist
DX: M19.071 Primary osteoarthritis, right ankle and foot (principal); M25.571 Pain in right ankle and joints of right foot
CPT/HCPCS: 73610; 73630

== ENCOUNTER → 2021-06-24 14:51 | Outpatient (CLI) | payer OTHER, SELFPAY ==
[2021-06-24 15:28] LABS: Amphetamine/Metha Screen,Urine Negative ng/ml (<1000); Barbiturates Screen,Urine Negative ng/ml (<200)
[2021-06-24 15:29] LABS: Benzodiazepines Screen,Urine Negative ng/ml (<200)
[2021-06-24 15:31] LABS: Cannabinoid Screen,Urine Negative ng/ml (<50)
[2021-06-24 15:32] LABS: Cocaine Screen,Urine Negative ng/ml (<300); Methadone Screen,Urine Negative ng/ml (<300)
[2021-06-24 15:33] LABS: Opiate Screen,Urine Positive ng/ml (<300)
[2021-06-24 15:48] LABS: Phencyclidine Screen,Urine Negative ng/ml (<25)
== END ==
PROVIDERS: Visit Provider Emergency Medicine
DX: Z79.899 Other long term (current) drug therapy (principal)
CPT/HCPCS: 80305

== ENCOUNTER 2021-07-11 11:06 | Emergency (ER) | payer OTHER, SELFPAY ==
[2021-07-11 11:46] VITALS: BP 0/0; PULSE 0; RESP 0; TEMP -17.7; TEMP 0
== END 2021-07-11 11:46 | disposition left against medical advice (07) ==
PROVIDERS: Emergency Provider Nurse Practitioner Family; PCP Emergency Medicine
DX: Z53.21 Procedure and treatment not carried out due to patient leaving prior to being seen by health care provider (principal)

== ENCOUNTER → 2021-08-02 11:58 | Outpatient (CLI) | payer OTHER, SELFPAY | PROVIDERS: Visit Provider Internal Medicine Gastroenterology | DX: Z11.52 Encounter for screening for COVID-19 (principal) | CPT/HCPCS: C9803; U0003; U0005 ==

== ENCOUNTER → 2021-09-19 11:17 | Outpatient (CLI) | payer OTHER, SELFPAY | PROVIDERS: PCP Emergency Medicine; Visit Provider Internal Medicine | DX: Z01.812 Encounter for preprocedural laboratory examination (principal); Z20.822 Contact with and (suspected) exposure to COVID-19; Z13.810 Encounter for screening for upper gastrointestinal disorder; R13.10 Dysphagia, unspecified | CPT/HCPCS: C9803; U0003; U0005 ==

== ENCOUNTER 2021-09-21 10:15 | Day surgery (SDC) | payer OTHER, SELFPAY ==
[2021-09-21 10:40] VITALS: BP 108/65; PULSE 87; RESP 18; TEMP 36.4; O2SAT 97; BMI 34.5
--- NOTE | 2021-09-21 11:42 | HMH.ANESCL ---
[facility] Anesthesia Checklist - Structural Data Admitted From: Home Planned Operative Procedure/s: egd Consent for Planned Operative Procedure(s) Verified: Yes - Additional verifications Anesthesia Reactions: No Hx Blood Transfusions: No Blood Transfusion Reaction: No - Airway Assessment C-Spine Mobility Assessed: Yes TMJ Mobility Assessed: Yes Dentition: Edentulous - Neurological Assessment Level of Consciousness: Awake, Alert, Appropriate - Anesthesia Plan Anesthesia Risk discussed: Yes Anesthesia Plan: Verified ASA Class: III Anesthesia Type: MAC [facility] History I have reviewed the patient's past medical history: Yes Medical History: Reports:: Anxiety, Chronic Obstructive Pulmonary Disease (COPD), Coronary Artery Disease, Depression, Gastroesophageal Reflux Disease(GERD), Hyperlipidemia, Hypertension Denies:: Cancer, Diabetes Mellitus Type 1, Diabetes Mellitus Type 2, Internal Pacemaker, MRSA, Seizures *Have you ever received a pneumonia vaccine?: Yes *Have you received a flu vaccine this season?: Yes Other Medical History: Reports: Other. Denies: Blood Transfusion Reaction Anesthesia experience/problems:: none Laterality Cases: Left: Carpal Tunnel Release, Right: Arthroscopy Knee, Arthroscopy Shoulder Other Surgeries: Yes: No Previous Surgery, Cardiac Catheterization, Colonoscopy, , Hysterectomy-Total, Tubal Ligation, Other. No: Pacemaker Amputation: No Fractures: Yes (ankle-lt) - *Social History Last grade of school completed: 9th or 10th Smoking Status: Current every day smoker Tobacco Type: cigarettes # Packs/Day (cigarettes): 1 Alcohol Intake: never Alcohol Intake Frequency:: holidays/special occasions only Substance Use Type: denies use *Occupational Status:: unemployed Housing: house Household Members: spouse *Travel in the last 8 weeks: None - Psychiatric History Pschychiatric History:: Reports:: Anxiety, Depression Family Hx:: Cancer, Diabetes, Heart Attack
[2021-09-21 11:45] VITALS: O2SAT 97
[2021-09-21 12:00] VITALS: BP 96/58; PULSE 94; RESP 18; TEMP 36.4; O2SAT 96
--- NOTE | 2021-09-21 12:01 | HMH.SCOPE ---
- Procedure: Date: 09/21/21 Patient Date of :: 1965 Procedure Performed:: EGD Indications:: Non cardiac chest pain, dysphagia, abdominal pain Performing Provider:: Major Quintana MD Referring Provider:: Nicolas Rivera MD Sedation:: See RN records Procedure:: The gastroscope was gently passed through the incisoral orifice into the oral cavity and under direct visualization the esophagus was intubated. The endoscope was passed down the esophagus, through the stomach, and into the duodenum. Color, texture, mucosa, and anatomy of the esophagus, stomach, and duodenum were carefully examined with the scope. Findings:: Oropharynx: normal Esophagus: Slight corrugated appearance. Glycogen deposits. Biopsies obtained. Empiric dilatation performed with 54F bougie dilator EG Junction:measured at 36 cm Cardia: normal Fundus: normal Body: mild gastritis. Biopsies obtained Antrum: mild gastritis. Biopsies obtained Duodenal bulb: normal Duodenum (second and third portion): normal Recommendations:: Await pathology results Complications:: none Estimated blood obtained (mL): 0
[2021-09-21 12:10] VITALS: BP 110/79; PULSE 78; RESP 18; O2SAT 95
[2021-09-21 12:20] VITALS: BP 125/79; PULSE 81; RESP 18; O2SAT 96
[2021-09-21 12:30] VITALS: BP 122/75; PULSE 83; RESP 18; O2SAT 96
== END 2021-09-21 12:30 | disposition home or self-care (01) ==
LOC: OUTP 10:16
PROVIDERS: PCP Emergency Medicine; Visit Provider Internal Medicine
PROC: 0DJ08ZZ Inspection of Upper Intestinal Tract, Via Natural or Artificial Opening Endoscopic (ICD-10-PCS; CPT 43235; principal; 2021-09-21 11:30)
DX: R13.10 Dysphagia, unspecified (principal); K21.9 Gastro-esophageal reflux disease without esophagitis; J44.9 Chronic obstructive pulmonary disease, unspecified; E78.5 Hyperlipidemia, unspecified; F41.9 Anxiety disorder, unspecified; I10 Essential (primary) hypertension; F32.A Depression, unspecified; Z72.0 Tobacco use; R07.89 Other chest pain
CPT/HCPCS: 43239; 43499

== ENCOUNTER → 2021-10-18 10:57 | Outpatient (CLI) | payer OTHER, SELFPAY ==
--- NOTE | 2021-10-18 11:00 | MR_ITS ---
FINAL REPORT CLINICAL HISTORY: chronic ankle pain. LATERAL SIDED FOOT AND ANKLE PAIN. PAIN CONSTANT FOR 6 MONTHS. NO INJURY OR TRAUMA. FINDINGS: Multiplanar MR imaging of the right ankle was performed without contrast. The bony structures are intact without evidence of fracture, bone bruise or marrow edema. No osteochondral lesion is identified. The Achilles tendon is intact. There is a large plantar spur. There is a partial insertional tear of the plantar fascia. The ligaments are intact without evidence of injury. The supporting tendons about the ankle are intact. No significant joint effusion is seen. The musculature is intact. There is no evidence of soft tissue mass or cyst. IMPRESSION: Large plantar spur with partial insertional tear of the plantar fascia. Reviewed, Interpreted and Dictated by Jc Agee MD Transcribed by Ash Santana Authenticated and [facility]
== END ==
PROVIDERS: PCP Emergency Medicine; Visit Provider Podiatrist
DX: M19.071 Primary osteoarthritis, right ankle and foot (principal); M25.571 Pain in right ankle and joints of right foot; M95.8 Other specified acquired deformities of musculoskeletal system
CPT/HCPCS: 73721

== ENCOUNTER → 2021-10-29 08:08 | Outpatient (CLI) | payer OTHER, SELFPAY | PROVIDERS: PCP Emergency Medicine; Visit Provider Otolaryngology | DX: Z01.812 Encounter for preprocedural laboratory examination (principal); Z20.822 Contact with and (suspected) exposure to COVID-19 | CPT/HCPCS: C9803; U0003; U0005 ==

== ENCOUNTER 2021-10-31 06:51 | Day surgery (SDC) | payer OTHER, SELFPAY ==
[2021-10-28 10:19] VITALS: BMI 35.0
[2021-10-31 07:15] VITALS: BP 132/89; PULSE 71; RESP 18; TEMP 36.1; O2SAT 98
--- NOTE | 2021-10-31 08:23 | HMH.ANESCL ---
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 Consent for Planned Operative Procedure(s) Verified: Yes - NPO Status Verified Time NPO: 00:00 - Additional verifications Anesthesia Reactions: No Hx Blood Transfusions: No Blood Transfusion Reaction: No - Airway Assessment C-Spine Mobility Assessed: Yes TMJ Mobility Assessed: Yes Dentition: Edentulous - Neurological Assessment Level of Consciousness: Awake Hx Seizures: No Numbness or tingling in extremities: No - Anesthesia Plan Anesthesia Risk discussed: Yes Anesthesia Plan: Verified ASA Class: III Anesthesia Type: Local [facility] History I have reviewed the patient's past medical history: Yes Medical History: Reports:: Anxiety, Asthma, Atrial Fibrillation (During heart cath), Chronic Obstructive Pulmonary Disease (COPD), Coronary Artery Disease, Depression, Gastroesophageal Reflux Disease(GERD), Hyperlipidemia, Hypertension Denies:: Cancer, Diabetes Mellitus Type 1, Diabetes Mellitus Type 2, Internal Pacemaker, MRSA, Seizures *Have you ever received a pneumonia vaccine?: Yes *Have you received a flu vaccine this season?: Yes Other Medical History: Reports: Other. Denies: Blood Transfusion Reaction Anesthesia experience/problems:: None Laterality Cases: Left: Carpal Tunnel Release, Right: Arthroscopy Knee, Arthroscopy Shoulder Other Surgeries: Yes: No Previous Surgery, Cardiac Catheterization, Colonoscopy, , Hysterectomy-Total, Tubal Ligation, Other. No: Pacemaker Amputation: No Fractures: Yes (ankle-lt) - *Social History Last grade of school completed: 9th or 10th Smoking Status: Current every day smoker Tobacco Type: cigarettes # Packs/Day (cigarettes): 1 Alcohol Intake: current Alcohol Intake Frequency:: a few times a week Substance Use Type: denies use *Occupational Status:: unemployed Housing: house Household Members: family *Travel in the last 8 weeks: None - Psychiatric History Pschychiatric History:: Reports:: Anxiety, Depression Family Hx:: Cancer, Diabetes, Heart Attack
[2021-10-31 09:28] VITALS: BP 123/75; PULSE 69; RESP 18; TEMP 36.6; O2SAT 100
--- NOTE | 2021-10-31 09:28 | HMH.OPNOTE ---
Date of procedure: 10/31/21 Pre-op Diagnosis:: Lower lip lesion Post-op Diagnosis:: Lower lip lesion Procedure performed:: Excision lower lip lesion-12mm length Surgeon:: Remy Porter III, MD Anesthesia: local Estimated blood loss (mL): 3 Operative findings:: Lower lip nevus central location-irregular borders Operative note:: The patient's lower lip was prepped and draped in sterile fashion.I injected 1% Lidocaine with epinephrine into the lip around the lesion. An incision was made in an ellipse around the lesion. It extended to the vermilion border anteriorly. The superior margin was marked and the specimen was sent jose to pathology. Any bleeding spots were spot coagulated. The incision was closed in multiple layers with 5-0 monocryl at the subcutaneous level and 5- chromic at the mucosal surface. The incision was then cleaned and dressed. The patient tolerated the procedure well. Condition: stable Disposition: observation Complications:: none
[2021-10-31 09:35] VITALS: BP 123/75; PULSE 69; RESP 18; TEMP 36.6; O2SAT 100
== END 2021-10-31 09:35 | disposition home or self-care (01) ==
LOC: OR 06:53
PROVIDERS: PCP Emergency Medicine; Visit Provider Otolaryngology
PROC: (CPT 11446; principal; 2021-10-31 08:30)
DX: L98.9 Disorder of the skin and subcutaneous tissue, unspecified (principal); K13.70 Unspecified lesions of oral mucosa; Z72.0 Tobacco use; Z79.82 Long term (current) use of aspirin; Z79.899 Other long term (current) drug therapy
CPT/HCPCS: 11446; 12055

== ENCOUNTER → 2021-11-01 12:37 | Outpatient (CLI) | payer OTHER, SELFPAY ==
--- NOTE | 2021-11-01 12:40 | CT_ITS ---
FINAL REPORT TECHNIQUE: Thin section axial CT images with coronal and sagittal reformats were performed. This study was performed with techniques to keep radiation doses as low as reasonably achievable (ALARA). Individualized dose reduction techniques using automated exposure control or adjustment of mA and/or kV according to the patient''s size were employed. CLINICAL HISTORY: chronic right ankle pain. eval for Total ankle replacement FINDINGS: There is no acute osseous abnormality of the right tibia or fibula. At the ankle, there is degenerative joint disease. The talar dome is intact. There is a calcification along the lateral aspect of the talus distal to the lateral malleolus which could be and old avulsion fracture fragment. There are prominent venous varicosities along the distal thigh and medial calf. There is mild nonspecific subcutaneous edema along the anterior mid leg. Remaining soft tissues are without acute abnormality. IMPRESSION: No acute osseous abnormality. 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 Reviewed, Interpreted and Dictated by Zeynep Hyman MD Transcribed by Anh Hitchcock Authenticated and [facility]
== END ==
PROVIDERS: PCP Emergency Medicine; Visit Provider Podiatrist
DX: M19.071 Primary osteoarthritis, right ankle and foot (principal)
CPT/HCPCS: 73700

== ENCOUNTER → 2021-11-08 11:12 | Outpatient (CLI) | payer OTHER, SELFPAY ==
--- NOTE | 2021-11-08 11:39 | XR_ITS ---
FINAL REPORT CLINICAL HISTORY: PREOP TESTING, hypertension, smoker COMPARISON: 03/27/2021 FINDINGS: Two views of the chest were obtained. The heart size and pulmonary vascularity are within normal limits. The mediastinum is normal. No acute pulmonary abnormality is identified. There is no pneumothorax. The bony thorax is intact. IMPRESSION: No active cardiopulmonary disease. Reviewed, Interpreted and Dictated by Cruzito Balbuena III, MD Transcribed by Ninfa Powell Authenticated and [facility]
[2021-11-08 12:18] LABS: Basophils # 0.1 K/mm3 (0-0.2); Basophils % 0.9 % (0.1-2.0); Eosinophils # 0.1 K/mm3 (0.0-0.4); Eosinophils % 0.9 % (0.1-12.0); Hemoglobin 12.6 g/dL (12.2-16.2); Lymphocytes # 2.8 K/mm3 (0.7-4.5); Lymphocytes % 22.1 % (10-50); Mean Corpuscular HGB Conc 32.2 g/dL (31.8-35.4); Mean Corpuscular Hemoglobin 32.9 pg (27.0-31.2); Mean Corpuscular Volume 102.3 fl (81-99); Mean Platelet Volume 7.8 fl (7.4-10.4); Monocytes # 0.8 K/mm3 (0.1-1.0); Monocytes % 6.5 % (1.7-9.3); Neutrophils # 8.6 K/mm3 (1.8-7.8); Neutrophils % 69.6 % (37.0-80.0); Platelet Count 579 K/mm3 (142-424); Red Blood Count 3.82 M/mm3 (4.20-5.40); Red Cell Distribution Width 13.6 % (11.5-17.5); White Blood Count 12.4 K/mm3 (4.8-10.8)
[2021-11-08 12:38] LABS: Alanine Aminotransferase 22 U/L (12-78); Albumin Level 3.9 g/dl (3.5-5.0); Albumin/Globulin Ratio 1.5 (1.1-1.8); Alkaline Phosphatase 125 U/L (38-126); Anion Gap 9.7 mEq/L (5-15); Aspartate Amino Transferase 28 U/L (14-36); Bilirubin,Total 0.3 mg/dl (0.2-1.3); Blood Urea Nitrogen 9 mg/dl (7-17); Calcium 9.7 mg/dl (8.4-10.2); Carbon Dioxide 26 mmol/L (22.0-30.0); Chloride 102 mmol/L (98-107); Estimated Glomerular Filt Rate 104 ml/min (>60); GFR (African American) 126 ML/MIN (>60); Globulin 2.6 g/dL (1.3-3.2); Glucose 104 mg/dl (74-100); Potassium 4.7 mmoL/L (3.5-5.1); Sodium 133 mmol/L (136-145); Total Protein,Serum 6.5 g/dl (6.3-8.2)
[2021-11-08 12:44] LABS: C-Reactive Protein 2.4 mg/L (0-4)
[2021-11-08 12:50] LABS: Erythrocyte Sedimentation Rate 27 mm/hr (0-30)
[2021-11-15 04:08] LABS: 1,25 Dihydroxy Vitamin D 39 pg/mL (.); 1,25-Dihydroxy, Vitamin D-2 <10 pg/mL (.); 1,25-Dihydroxy, Vitamin D-3 39 pg/mL (.)
[2021-12-03 21:20] LABS: Nicotine 10.4
[2021-12-03 21:21] LABS: Cotinine 170.8
== END ==
PROVIDERS: PCP Emergency Medicine; Visit Provider Podiatrist
DX: U07.1 COVID-19; Z01.818 Encounter for other preprocedural examination; M25.571 Pain in right ankle and joints of right foot
CPT/HCPCS: 36415; 71046; 80053; 80323; 82652; 85025; 85651; 86140; C9803; U0003; U0005

== ENCOUNTER → 2021-12-13 10:22 | Outpatient (CLI) | payer OTHER, SELFPAY | PROVIDERS: PCP Emergency Medicine; Visit Provider Podiatrist | DX: Z01.818 Encounter for other preprocedural examination (principal); Z20.822 Contact with and (suspected) exposure to COVID-19 | CPT/HCPCS: C9803; U0003; U0005 ==

== ENCOUNTER 2021-12-14 11:58 | Observation (INO) | payer OTHER, SELFPAY ==
[2021-11-07 13:32] VITALS: BMI 35.0
[2021-12-14] VITALS (23 sets, daily range): BP systolic 102–159; BP diastolic 58–93; PULSE 81–112; RESP 16–24; TEMP 36.2–43; O2SAT 93–98
[2021-12-14 08:18] LABS: Basophils # 0.1 K/mm3 (0-0.2); Basophils % 0.9 % (0.1-2.0); Eosinophils # 0.3 K/mm3 (0.0-0.4); Eosinophils % 2.3 % (0.1-12.0); Hemoglobin 12.6 g/dL (12.2-16.2); Lymphocytes # 1.9 K/mm3 (0.7-4.5); Lymphocytes % 17.7 % (10-50); Mean Corpuscular HGB Conc 30.7 g/dL (31.8-35.4); Mean Corpuscular Hemoglobin 31.6 pg (27.0-31.2); Mean Platelet Volume 7.6 fl (7.4-10.4); Monocytes # 0.6 K/mm3 (0.1-1.0); Monocytes % 5.3 % (1.7-9.3); Neutrophils % 73.7 % (37.0-80.0); Platelet Count 536 K/mm3 (142-424); Red Blood Count 3.98 M/mm3 (4.20-5.40); Red Cell Distribution Width 13.7 % (11.5-17.5); White Blood Count 10.9 K/mm3 (4.8-10.8)
[2021-12-14 08:23] LABS: Alanine Aminotransferase 22 U/L (12-78); Albumin Level 3.8 g/dl (3.5-5.0); Albumin/Globulin Ratio 1.3 (1.1-1.8); Alkaline Phosphatase 118 U/L (38-126); Aspartate Amino Transferase 28 U/L (14-36); Bilirubin,Total 0.1 mg/dl (0.2-1.3); Blood Urea Nitrogen 8 mg/dl (7-17); Calcium 8.7 mg/dl (8.4-10.2); Carbon Dioxide 27 mmol/L (22.0-30.0); Chloride 108 mmol/L (98-107); Creatinine Clearance Estimated 198 mL/min (50-200); Estimated Glomerular Filt Rate 128 ml/min (>60); GFR (African American) 155 ML/MIN (>60); Globulin 2.9 g/dL (1.3-3.2); Glucose 93 mg/dl (74-100); Sodium 140 mmol/L (136-145); Total Protein,Serum 6.7 g/dl (6.3-8.2)
--- NOTE | 2021-12-14 08:33 | P.PN_ITS ---
[facility] Medical History A-fib Abnormal EKG Anxiety CAD (coronary artery disease) delivery delivered Claudication COPD (chronic obstructive pulmonary disease) Depressed Dyspnea GERD (gastroesophageal reflux disease) HTN (hypertension) Hyperlipidemia Surgical History H/O removal of cyst H/O tubal ligation History of carpal tunnel release Family History Other Family history of cancer Family history of myocardial infarction Social History Smoking Status: Current every day smoker tobacco type: cigarettes packs per da y: 1 alcohol intake: never counseling provided: provider counseling substance use type: denies use current occupational status: unemployed Travel in the last 8 weeks: None household members: family housing: house 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 current occupational exposures/hazards: No caffeine: Yes [facility] Anesthesia Checklist Patient Identification Patient Identification: Arm Band Structural Data Admitted From: Home Planned Operative Procedure/s: Right Ankle Arthroscopy Consent for Planned Operative Procedure(s) Verified: Yes Verified Documents: Surgical Consent, History and Physical and Cardiac Clearance NPO Status Verified Time NPO: 00:00 Additional verifications Anesthesia Reactions: No Hx Blood Transfusions: No Blood Transfusion Reaction: No Airway Assessment C-Spine Mobility Assessed: Yes (mp2) TMJ Mobility Assessed: Yes Dentition: Edentulous Neurological Assessment Level of Consciousness: Awake and Alert Anesthesia Plan Anesthesia Risk discussed: Yes Anesthesia Plan: Verified ASA Class: III Anesthesia Type: General w/block (Right Popliteal/Saphenous Block)
--- NOTE | 2021-12-14 10:59 | XR_ITS ---
FINAL REPORT CLINICAL HISTORY: pt in surgery and started bleeding out of ET tube COMPARISON: November 08, 2021 FINDINGS: An ET tube is seen with the tip at the orifice of the right mainstem bronchus. The heart size is normal. The mediastinum is normal. There is no focal infiltrate or edema. There are no pleural effusions. There is no pneumothorax. There is no osseous abnormality. IMPRESSION: ET tube tip at the orifice of the right mainstem bronchus. Reviewed, Interpreted and Dictated by Cruzito Balbuena III, MD Transcribed by Ash Santana Authenticated and . [facility]
--- NOTE | 2021-12-14 11:19 | P.PNANES_ITS ---
[facility] Anesthesia Record Part I Anesthesia Record I Intake, IV Amount: 1,000 Estimated blood loss (mL): 80 Urine output (mL): 0 Blood Pressure: 114/93 SaO2: 98 Pulse Rate: 112 Respiratory Rate: 24 Temperature: 97.2 F Patient is:: Awake Stable to PACU at:: 11:17
--- NOTE | 2021-12-14 11:37 | XR_ITS ---
FINAL REPORT CLINICAL HISTORY: s/p right ankle arthroscopy COMPARISON: May 16, 2021 FINDINGS: RIGHT ANKLE: Three views of the right ankle were obtained. There is no acute fracture or dislocation. There is a chronic calcification inferior to the medial malleolus. There is a calcification proximal to the 5th metatarsal of uncertain age that is favored to be chronic. There are mild degenerative changes. There is a plantar calcaneal spur. IMPRESSION: No acute process. Reviewed, Interpreted and Dictated by Cruzito Balbuena III, MD Transcribed by Ash Santana Authenticated and [facility]
--- NOTE | 2021-12-14 11:47 | EXP.OP.NOTE ---
Date of procedure: 12/14/21 Pre-op Diagnosis:: Right ankle synovitis Right ankle instability Right ankle osteoarthritis Post-op Diagnosis:: Same Procedure performed:: Right ankle arthroscopy (30350), arthroscopic debridement of OCD (63422) OCD microfracture Right ankle synovectomy Surgeon:: Amina Davis DPM ZIPPER SETTER:: Cira Peters Anesthesia: GETA, regional (R popliteal nerve block) and LMA Estimated blood loss (mL): 80 Clinical Note:: Patient is a 56-year-old female who presents with chronic right ankle pain and instability. Recent MRI and CT reviewed.? Biggest complaint is more of the instability.? We discussed doing soft tissue reconstruction and stabilization.? We discussed staging bone work for arthritis in the future if needed. The patient has tried immobilization, modification of shoe gear, strapping, inserts, ice, elevation, and NSAIDs. She has also tried ankle bracing including custom left ankle brace by [facility], and home physical therapy. After a long discussion with the patient in regards to the conservative versus surgical treatment for the tendon tear/deformity, the patient has elected to proceed with surgery because they have failed conservative treatment and continue to have pain and worsening symptoms affecting daily activities.? The patient has been instructed on the planned procedure, all risk versus benefits of the procedure discussed.? These include but are not limited to: bleeding, infection, nerve and blood vessel damage, need for further surgery, delay in healing of soft tissue or bone, tendon re-rupture, failure of bones to heal, non-union, mal-union, failure of the implant, prolonged pain/swelling and recovery, CRPS/RSD, DVT/PE and anesthetic complications.? No history of DVT/PE.? Discussed risk factors include obesity, prolonged immobilization. She will take aspirin postoperatively for DVT prophylaxis. No guarantees were given. All questions fully answered. The patient verbalized understanding and agreed to proceed with surgery. Written consent was obtained. Medical clearance obtained by PCP Iglesia Hart/Dr. Rivera. Operative findings:: Significant synovitis noted to the ankle joint. There was an osteochondral defect noted to the lateral talar dome. Right ankle and OCD arthroscopic debridement. Right ankle instability. Operative note:: On this date and time patient was deemed an appropriate surgical candidate. Pre-op regional popliteal nerve block performed by anesthesia. With informed consent signed, the patient was taken to the operating theater. Patient positioned supine. General anesthesia induced. Tourniquet applied to right thigh. IV antibiotics infused. Patient positioned appropriately in the knee yen. Right ankle arthroscopy with synovitic debridement, OCD debridement: The right lower extremity was prepped and draped in normal sterile fashion. Standard medial and lateral ankle portals made. Lawanda 2.7mm scope inserted in standard technique to medial portal. Extensive synovitis noted throughout the ankle joint. [place] shaver bur was then inserted and synovitic tissue debrided. Camera was removed and placed into the lateral portal and the bur was utilized from the opposite portal. Osteochondral defect was noted to the lateral talar dome. Arthroscopic probe inserted and there was no deep cartilage opening or lifting off the talus. OCD microfractured and shaver bur used to debride area. The scope was removed without complication. Nylon used to repair portal skin sites. Xeroform and dry sterile dressing applied to the right ankle. The remaining planned ankle procedures (including posterior tibial tendon repair, peroneal tendon repair versus synovectomy, modified Brostr?m ankle ligament stabilization, medial malleolus fracture/bone spur excision, tibial spur excision, foot exostectomy/partial excision of talus bone and gastrocnemius recession) were not performed due to the patient's complication intraoperatively. See com
--- NOTE | 2021-12-14 12:13 | PC.NURSE ---
patient arrived to floor by stretcher from surgery
--- NOTE | 2021-12-14 13:16 | XR_ITS ---
FINAL REPORT CLINICAL HISTORY: SOB FINDINGS: This exam was performed on December 14, 2021 and submitted for interpretation on December 29, 2021. The heart size is normal. The mediastinum is normal. There is no focal infiltrate or edema. There are no pleural effusions. There is no pneumothorax. There is no osseous abnormality. IMPRESSION: No acute cardiopulmonary process Reviewed, Interpreted and Dictated by Jc Agee MD Transcribed by Ash Santana Authenticated and [facility]
--- NOTE | 2021-12-14 13:17 | EXP.PULM.CON ---
History of Present Illness History of present illness: Ms. Zapata is a 56-year-old female current smoker greater than [id number] smoking History of COPD on Symbicort along with Albuterol Every 6 Hours on As-Needed basis Show Sleep Apnea CPAP That Presented for an Elective Procedure Which Is Complicated by Likely Oral/Nasal Bleeding Followed by Needing Intubation and Mechanical Ventilator Support Successfully Extubated Needing New Oxygen Requirements and Pulmonary Was Called for Further Evaluation. [facility] Medical History (Updated 12/14/21 @ 13:18 by Julius Becerra MD) A-fib Abnormal EKG Acute respiratory failure with hypoxia Allergies Anxiety CAD (coronary artery disease) delivery delivered Claudication COPD (chronic obstructive pulmonary disease) Depressed Dyspnea GERD (gastroesophageal reflux disease) HTN (hypertension) Hyperlipidemia Sleep apnea Surgical History H/O removal of cyst H/O tubal ligation History of carpal tunnel release Family History Other Family history of cancer Family history of myocardial infarction Social History Smoking Status: Current every day smoker tobacco type: cigarettes packs per day: 1 alcohol intake: never counseling provided: provider counseling substance use type: denies use current occupational status: unemployed Travel in the last 8 weeks: None household members: family housing: house 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 current occupational exposures/hazards: No caffeine: Yes Review of Systems Constitutional Constitutional: Reports anorexia, Reports body ache(s) and Reports daytime sleepiness Eyes Eyes: Denies eye discharge, Denies dry eyes, Denies irritation and Denies itchy eyes ENT Ears, Nose, Mouth, and Throat: Denies epistaxis, Denies facial pain, Denies lip swelling and Denies throat swelling *Cardiovascular Cardiovascular: Reports dyspnea and Reports dyspnea on exertion *Respiratory Respiratory: Denies chest congestion, Denies cough, Reports dyspnea, Reports dyspnea on exertion, Denies excessive phlegm production and Denies wheezing *Gastrointestinal Gastrointestinal: Denies abdominal pain, Denies belching and Denies cramping *Musculoskeletal Musculoskeletal: Reports back pain, Reports myalgias and Reports other (No small joint swelling or Pain) Psychiatric Psychiatric: Denies homicidal ideation and Denies suicidal ideation Endocrine Endocrine: Denies heat intolerance Hematologic/Lymphatic Hematologic/Lymphatic: Denies easy bleeding and Denies lymphadenopathy Allergic/Immunologic Allergic/Immunologic: Denies itchy eyes, Denies lip swelling, Denies throat swelling and Denies wheezing Pulmonology Exam Inpatient Vital signs and Labs for Last 24 Hours: Temp Pulse Resp BP Pulse Ox 97.2 F L 98 H 24 114/93 H 98 12/14/21 11:20 12/14/21 11:43 12/14/21 11:20 12/14/21 11:20 12/14/21 08:10 Laboratory Results - last 24 hr 12/14/21 08:07: WBC 10.9 H, RBC 3.98 L, Hgb 12.6, Hct 41.0, MCV 103.0 H, MCH 31.6 H, MCHC 30.7 L, RDW 13.7, Plt Count 536 H, MPV 7.6, Neut % (Auto) 73.7, Lymph % (Auto) 17.7, [place] % (Auto) 5.3, Eos % (Auto) 2.3, Baso % (Auto) 0.9, Neut # (Auto) 8.0 H, Lymph # (Auto) 1.9, [place] # (Auto) 0.6, Eos # (Auto) 0.3, Baso # (Auto) 0.1 12/14/21 08:07: Sodium 140, Potassium 4.0, Chloride 108 H, Carbon Dioxide 27, Anion Gap 9.0, BUN 8, Creatinine 0.50 L, Estimated Creat Clear 198, Estimated GFR 128, Est GFR ( Amer) 155, Glucose 93, Calcium 8.7, Total Bilirubin 0.1 L, AST 28, ALT 22, Alkaline Phosphatase 118, Total Protein 6.7, Albumin 3.8, Globulin 2.9, Albumin/Globulin Ratio 1.3 I & O for Labs for Last 24 Hours: Intake & Output 12/11/21 12/12/21 12/13/21 12/14/21 23:59 23:59 23:59 23:59 Intake Total 1000 / 1000 Balance 1000 / 1000 Head
[2021-12-14 13:51] LABS: Alanine Aminotransferase 20 U/L (12-78); Albumin Level 3.8 g/dl (3.5-5.0); Albumin/Globulin Ratio 1.4 (1.1-1.8); Alkaline Phosphatase 123 U/L (38-126); Anion Gap 9.3 mEq/L (5-15); Aspartate Amino Transferase 28 U/L (14-36); Blood Urea Nitrogen 8 mg/dl (7-17); Calcium 8.5 mg/dl (8.4-10.2); Carbon Dioxide 28 mmol/L (22.0-30.0); Chloride 107 mmol/L (98-107); Creatinine Clearance Estimated 165 mL/min (50-200); Estimated Glomerular Filt Rate 104 ml/min (>60); GFR (African American) 126 ML/MIN (>60); Globulin 2.7 g/dL (1.3-3.2); Glucose 99 mg/dl (74-100); Potassium 4.3 mmoL/L (3.5-5.1); Sodium 140 mmol/L (136-145); Total Protein,Serum 6.5 g/dl (6.3-8.2)
[2021-12-14 13:52] LABS: Bilirubin,Total < 0.1 mg/dl (0.2-1.3)
[2021-12-14 13:53] LABS: INR 0.92 (0.9-1.1)
[2021-12-14 14:03] LABS: Basophils % 0.2 % (0.1-2.0); Eosinophils # 0.1 K/mm3 (0.0-0.4); Eosinophils % 0.5 % (0.1-12.0); Hematocrit 38.2 % (37.0-47.0); Hemoglobin 12.1 g/dL (12.2-16.2); Lymphocytes # 0.9 K/mm3 (0.7-4.5); Lymphocytes % 5.2 % (10-50); Mean Corpuscular HGB Conc 31.6 g/dL (31.8-35.4); Mean Corpuscular Hemoglobin 32.6 pg (27.0-31.2); Mean Corpuscular Volume 103.1 fl (81-99); Monocytes # 0.3 K/mm3 (0.1-1.0); Monocytes % 1.7 % (1.7-9.3); Neutrophils # 15.5 K/mm3 (1.8-7.8); Neutrophils % 92.4 % (37.0-80.0); Platelet Count 569 K/mm3 (142-424); Red Cell Distribution Width 13.7 % (11.5-17.5); White Blood Count 16.8 K/mm3 (4.8-10.8)
[2021-12-14 14:15] LABS: MANUAL DIFFERENTIAL MANUAL DIFFERENTIAL (MANUAL DIFF)
--- NOTE | 2021-12-14 14:23 | XR_ITS ---
FINAL REPORT CLINICAL HISTORY: s/p fall COMPARISON: Earlier of the same day FINDINGS: RIGHT ANKLE: Three views of the right ankle were obtained. There are mild degenerative changes. There is a plantar calcaneal spur. There is a small calcification inferior to the lateral malleolus. There is a calcification posterior to the 5th metatarsal. There is irregularity of the inferior tip of the lateral malleolus. There is a small calcification along the lateral where foot that may be new. There is soft tissue swelling about the ankle. IMPRESSION: Irregularity of the inferior tip of the lateral malleolus. Uncertain if this represents a nondisplaced fracture or postoperative change. Small calcification lateral to the rearfoot may be new. Small avulsion fracture cannot be excluded. Reviewed, Interpreted and Dictated by Cruzito Balbuena III, MD Transcribed by Ash Santana Authenticated and [facility]
--- NOTE | 2021-12-14 14:30 | PC.NURSE ---
Jannette - S ORESTES Segovia called for me to come to patients room. Upon entering the room patient was sitting on her buttocks on the floor. The patient had pressed the call light and told the WC she needed to use the bathroom per WC. called MAR Aguiar and asked her to take the patient to the bathroom. I informed Santa that patient needed to use the bsc since patient was s/p rle arthroplasty. Santa went into the patients room and saw the patient sitting on the floor by the bed. The patient stated she attempted to get out of the bed to take herself to the bathroom instead of waiting for assistance. Why asked why she didn't wait she stated I don't know . Pt had previously been educated that she needed to press the call light for assistance to the bsc. She is alert and oriented x4 and had verbalized understanding. Call light was within reach. VS are as documented in the intervention. There was a small amount of bloody drainage noted on lateral aspect of dressing to right ankle. Pt was assisted to the bed via the lift. Dr Davis was notified. She requested a 3 view xray. Some bruising noted to right knee. 30 min patient observation initiated and patient was informed that bed alarm would have to be utilized.
--- NOTE | 2021-12-14 14:32 | PC.NURSE ---
late entry.... 1135-radiology at bedside 1145-respiratory at bedside administering breathing treatment as ordered per RETURN TO VENDOR, Dr. Davis at bedside talking to pt, notified care management that pt would be getting admitted for further observation and that Dr. Mandujano had given Dr. Davis verbal agreement for admission via telephone, Dr. Becerra notified of consult per Dr. Davis's orders 1152-Dr. Davis at bedside with pt's father/family 1206-detailed report called to SelinaRN 1210-pt transported to 2nd floor room 214 via hospital bed w/soni rails up per Aki,ORESTES and Cristobal,RN and left in care of ORESTES Marks with bed locked in lowest position, vss, pt stable
[2021-12-14 14:33] LABS: Lymphocytes % 9 % (10-50); Monocytes % 2 % (2-9); Neutrophils % 88 % (42-76); Total Cells Counted 100
[2021-12-14 14:34] LABS: Anisocytosis 1+; Microcytosis 1+; Platelet Estimate Moderate Increase
--- NOTE | 2021-12-14 16:26 | PC.NURSE ---
Pt is alert and oriented x4. Lungs are clear throughout. She's been weaned to RA with O2 sats measuring greater then 93%. Dressing to right ankle was changed. Xeroform left in place, covered w/4x4's, susanne, soft roll and eda. Ankle had some bruising and swelling noted. Some swelling and bruising to knee as well. Polar pack in place and right ankle elevated. She reports having a sore throat. Dr Davis notified and chloraseptic spray ordered prn. Bed is locked and in the lowest position with alarm on, call light is within reach.
--- NOTE | 2021-12-14 17:21 | PC.NURSE ---
Pt is still on post op vitals, she has repeatedly taken her bp cuff off. She's been educated multiple times about the importance of monitoring vs after a procedure. She has verbalized understanding but still continues to remove bp cuff.
--- NOTE | 2021-12-14 23:23 | PC.NURSE ---
Pt has taken off BiPAP, pt refusing to put it back on and wear it, pt states it makes her throat hurt worse.
[2021-12-15] VITALS: BP 120/75; PULSE 69; RESP 18; TEMP 36.7; O2SAT 97
[2021-12-15 04:00] VITALS: BP 136/67; PULSE 77; RESP 17; TEMP 36.8; O2SAT 97
--- NOTE | 2021-12-15 04:00 | PC.NURSE ---
Pt has rested through the night, pt complained of pain one time, treated prn per jun. Pt was started on BiPAP, pt kept it on for an hour and refused to put it back on. Pt has remained on room air the rest of the night, O2 sat >90%. Pt lung sounds bilateral throughout, ex wheezing noted. Pt has been sleeping through the night with no issues. Foot dressing in place, CDI. Polar pack in place. Pt has used bedpan and BSC commode this shift with assist x2, non weight bearing to right leg. Bowel sounds active, abdomen soft and nontender.
[2021-12-15 05:00] VITALS: BMI 34.4
--- NOTE | 2021-12-15 07:57 | EXP.ANES.II ---
[facility] Anesthesia Record Part II Anesthesia Record Part II Discharge Time: 12:07 Destination: Medical Surgical Department PACU nurse assessment reviewed?: Yes Patient Condition:: Good Anesthesia Complications:: none Swallowing reflex intact?: Yes Cyanosis?: No Blood Pressure: 116/58 Pulse Rate: 92 Temperature: 97.4 F Mental Status: Alert & Oriented Pain level:: 0 Nausea and/or vomitting:: None Intake, IV Amount: 0 Comments:: Pt admitted to med surg floor d/t coughing up blood during procedure. Procedure aborted, pt intubated, then extubated prior to Pacu arrival, O2 weaned to 2L NC and transferred to med/surg floor.
[2021-12-15 07:59] VITALS: BP 116/58; PULSE 92; TEMP 36.3
[2021-12-15 08:00] VITALS: BP 159/88; PULSE 78; RESP 18; TEMP 36.7; O2SAT 98
--- NOTE | 2021-12-15 08:09 | EXP.HP ---
[facility] Medical History (Updated 12/14/21 @ 13:18 by Julius Becerra MD) A-fib Abnormal EKG Acute respiratory failure with hypoxia Allergies Anxiety CAD (coronary artery disease) delivery delivered Claudication COPD (chronic obstructive pulmonary disease) Depressed Dyspnea GERD (gastroesophageal reflux disease) HTN (hypertension) Hyperlipidemia Sleep apnea Surgical History H/O removal of cyst H/O tubal ligation History of carpal tunnel release Family History Other Family history of cancer Family history of myocardial infarction Social History Smoking Status: Current every day smoker tobacco type: cigarettes packs per day: 1 alcohol intake: never counseling provided: provider counseling substance use type: denies use current occupational status: unemployed Travel in the last 8 weeks: None household members: family housing: house 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 current occupational exposures/hazards: No caffeine: Yes Meds Home Medications and Allergies Home Medications Medication Instructions Recorded Confirmed Type aspirin 81 mg chewable tablet 81 mg PO DAILY HEART HEALTH 04/28/19 12/14/21 History albuterol sulfate 90 mcg/actuation 2 puffs inhalation Q4-6H PRN 03/27/21 12/14/21 History aerosol inhaler Shortness Of Breath ipratropium 0.5 mg-albuterol 3 mg 3 ml inhalation QID PRN shortness 10/25/21 12/14/21 Rx (2.5 mg base)/3 mL nebulization of breath #180 mL soln atorvastatin 80 mg tablet See Rx Instructions .Route 10/28/21 12/14/21 History .COMPLEX Cholesterol fluticasone furoate 27.5 2 spray intranasal DAILY Allergy 10/28/21 12/14/21 History mcg/actuation nasal symptoms spray,suspension furosemide 40 mg tablet See Rx Instructions .Route 10/28/21 12/14/21 History .COMPLEX chf isosorbide mononitrate 120 mg See Rx Instructions .Route 10/28/21 12/14/21 History tablet,extended release 24 hr .COMPLEX High blood pressure lisinopril 5 mg tablet See Rx Instructions .Route 10/28/21 12/14/21 History .COMPLEX High blood pressure metoclopramide HCl 10 mg tablet See Rx Instructions .Route 10/28/21 12/14/21 History .COMPLEX Nausea & vomiting metoprolol succinate 50 mg 50 mg PO DAILY High blood pressure 10/28/21 12/14/21 History tablet,extended release 24 hr nitroglycerin 0.4 mg sublingual See Rx Instructions .Route 10/28/21 12/14/21 History tablet .COMPLEX Chest pain paroxetine HCl 40 mg tablet See Rx Instructions .Route 10/28/21 12/14/21 History .COMPLEX Depression ranolazine 1,000 mg See Rx Instructions .Route 10/28/21 12/14/21 History tablet,extended release,12 hr .COMPLEX Chest pain spironolactone 25 mg tablet See Rx Instructions .Route 10/28/21 12/14/21 History .COMPLEX chf pantoprazole 40 mg tablet,delayed See Rx Instructions .Route 11/18/21 12/14/21 Rx release .COMPLEX GERD #90 tabs clonazepam 0.5 mg tablet 0.5 mg PO BID Anxiety #60 tabs 12/13/21 12/14/21 Rx gabapentin 800 mg tablet 800 mg PO QID Pain #120 tabs 12/13/21 12/14/21 Rx hydrocodone 7.5 mg-acetaminophen 1 tab PO QID PRN pain #120 tabs 12/13/21 12/14/21 Rx 325 mg tablet ketorolac 10 mg tablet 10 mg PO Q6H PRN pain 5 days #20 12/13/21 12/14/21 Rx tabs ondansetron 4 mg disintegrating 4 mg PO Q6H PRN nausea and 12/13/21 12/14/21 Rx tablet vomiting #30 tabs oxycodone 10 mg tablet 10 mg PO Q4-6H PRN severe pain 1 12/13/21 12/14/21 Rx week #42 tabs budesonide-formoterol HFA 160 See Rx Instructions .Route 12/14/21 12/14/21 History mcg-4.5 mcg/actuation aerosol .COMPLEX Asthma inhaler (Symbicort) nystatin 100,000 unit/gram topical 1 applic topical TID . 12/14/21 12/14/21 History powder New Prescriptions to Start Prescriptions: Allergies Allergy/AdvReac Type Severity Thomson
--- NOTE | 2021-12-15 08:11 | EXP.ORTH.PN ---
Subjective *Date: 12/15/21 *Time: 12:53 Interval history: Patient had a right ankle arthroscopy yesterday 12/14/2021. There was a respiratory intraoperative complication which necessitated aborting the remainder of the procedure. Subsequently she got up to use the bathroom on her own without waiting for nursing staff. She did not have the bedside commode or a walker at the bedside yet. She had a right lower extremity nerve block prior to surgery. When she got up to use the restroom she fell. Complains of some soreness to the ankle. New post fall x-rays taken and x-rays revealed possible avulsion fracture of the lateral malleolus. Ortho Exam (Inpt) Vital signs and Labs for Last 24 Hours: Temp Pulse Resp BP Pulse Ox 97.4 F L 92 H 17 116/58 L 97 12/15/21 07:59 12/15/21 07:59 12/15/21 04:00 12/15/21 07:59 12/15/21 04:00 Laboratory Results - last 24 hr 12/14/21 08:07: WBC 10.9 H, RBC 3.98 L, Hgb 12.6, Hct 41.0, MCV 103.0 H, MCH 31.6 H, MCHC 30.7 L, RDW 13.7, Plt Count 536 H, MPV 7.6, Neut % (Auto) 73.7, Lymph % (Auto) 17.7, [place] % (Auto) 5.3, Eos % (Auto) 2.3, Baso % (Auto) 0.9, Neut # (Auto) 8.0 H, Lymph # (Auto) 1.9, [place] # (Auto) 0.6, Eos # (Auto) 0.3, Baso # (Auto) 0.1 12/14/21 08:07: Sodium 140, Potassium 4.0, Chloride 108 H, Carbon Dioxide 27, Anion Gap 9.0, BUN 8, Creatinine 0.50 L, Estimated Creat Clear 198, Estimated GFR 128, Est GFR ( Amer) 155, Glucose 93, Calcium 8.7, Total Bilirubin 0.1 L, AST 28, ALT 22, Alkaline Phosphatase 118, Total Protein 6.7, Albumin 3.8, Globulin 2.9, Albumin/Globulin Ratio 1.3 12/14/21 13:33: WBC 16.8 H D, RBC 3.70 L, Hgb 12.1 L, Hct 38.2, MCV 103.1 H, MCH 32.6 H, MCHC 31.6 L, RDW 13.7, Plt Count 569 H, MPV 8.0, Neut % (Auto) 92.4 H, Lymph % (Auto) 5.2 L, [place] % (Auto) 1.7, Eos % (Auto) 0.5, Baso % (Auto) 0.2, Neut # (Auto) 15.5 H, Lymph # (Auto) 0.9, [place] # (Auto) 0.3, Eos # (Auto) 0.1, Baso # (Auto) 0.0, Total Counted 100, Neutrophils % (Manual) 88 H, Band Neutrophils % 1.0, Lymphocytes % (Manual) 9 L, Monocytes % (Manual) 2, Platelet Estimate Moderate increase, Anisocytosis 1+, Microcytosis 1+ 12/14/21 13:33: Sodium 140, Potassium 4.3, Chloride 107, Carbon Dioxide 28, Anion Gap 9.3, BUN 8, Creatinine 0.60, Estimated Creat Clear 165, Estimated GFR 104, Est GFR ( Amer) 126, Glucose 99, Calcium 8.5, Total Bilirubin < 0.1 L, AST 28, ALT 20, Alkaline Phosphatase 123, Total Protein 6.5, Albumin 3.8, Globulin 2.7, Albumin/Globulin Ratio 1.4 12/14/21 13:33: PT 10.0 L, INR 0.92 I & O for Labs for Last 24 Hours: Intake & Output 12/12/21 12/13/21 12/14/21 12/15/21 11:59 11:59 11:59 11:59 Intake Total 1000 / 1000 480 / 480 Output Total 1301 / 1301 Balance 1000 / 1000 -821 / -821 Weight 214 lb 11.2 oz Constitutional: obese Head: normocephalic Neck: normal inspection Respiratory: able to speak in complete sentences Cardiac: Reg Rate and Rhythm GI: soft Extremities: normal inspection, tenderness, normal capillary refill and edema (Right ankle) Skin: intact Comment:: Sutures noted to right medial and lateral ankle incisions. No signs of wound dehiscence or infection noted. Ankle: right: normal inspection, right: swelling and right: tenderness Assessment and Plan *Assessment and plan (1) Closed avulsion fracture of distal end of right fibula: Status: Acute Qualifiers: Encounter type: initial encounter Qualified Code(s): S82.831A - Other fracture of upper and lower end of right fibula, initial encounter for closed fracture Category: Medical Code(s): S82.831A - Other fracture of upper and lower end of right fibula, initial encounter for closed fracture (2) Edema of right ankle: Status: Acute Category: Medical Code(s): M25.471 - Effusion, right ankle (3) Right ankle pain: Status: Acute Category: Medical Code(s): M25.571 - Pain in right ankle and joints of right foot (4) Status post surgery:
--- NOTE | 2021-12-15 08:54 | SW/DCPLANNER ---
I spoke with this patient regarding discharge plans. Patient stated that he resides at home with her father that does assist her at home. Patient plans to return home. Patient stated that she has a BSC and walker at home. Dr Davis stated that patient will not need dressing change until her follow up appointment. Patient has no further needs at home at this time.
--- NOTE | 2021-12-15 09:10 | EXP.HPDC ---
General Admission date:: 12/14/21 Discharge date: 12/15/21 *Admission Date: 12/14/21 *Chief complaint: copd, epistaxis *History of present illness: 56 yo female with history of copd. She was on the operating table for foot procedure when she developed epistaxis/abnormal bleeding. She ultimately required intubation with mechanical ventilation. Pulmonary cosmetic consultant asked to see with us. [facility] Medical History (Updated 12/15/21 @ 08:23 by Amina Davis DPM) A-fib Abnormal EKG Acute respiratory failure with hypoxia Allergies Anxiety CAD (coronary artery disease) delivery delivered Claudication COPD (chronic obstructive pulmonary disease) Depressed Dyspnea GERD (gastroesophageal reflux disease) HTN (hypertension) Hyperlipidemia Sleep apnea Surgical History (Updated 12/15/21 @ 08:20 by Amina Davis DPM) H/O removal of cyst H/O tubal ligation History of carpal tunnel release Family History Other Family history of cancer Family history of myocardial infarction Social History Smoking Status: Current every day smoker tobacco type: cigarettes packs per day: 1 alcohol intake: never counseling provided: provider counseling substance use type: denies use current occupational status: unemployed Travel in the last 8 weeks: None household members: family housing: house 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 current occupational exposures/hazards: No caffeine: Yes Review of Systems Review of Systems Review of systems:: pertinent systems reviewed and negative unless documented below Exam Data for Last 24 hours Vital signs and Labs for Last 24 Hours: Temp Pulse Resp BP Pulse Ox 98.1 F 78 18 159/88 H 98 12/15/21 08:00 12/15/21 08:00 12/15/21 08:00 12/15/21 08:00 12/15/21 08:00 Laboratory Results - last 24 hr 12/14/21 13:33: WBC 16.8 H D, RBC 3.70 L, Hgb 12.1 L, Hct 38.2, MCV 103.1 H, MCH 32.6 H, MCHC 31.6 L, RDW 13.7, Plt Count 569 H, MPV 8.0, Neut % (Auto) 92.4 H, Lymph % (Auto) 5.2 L, [place] % (Auto) 1.7, Eos % (Auto) 0.5, Baso % (Auto) 0.2, Neut # (Auto) 15.5 H, Lymph # (Auto) 0.9, [place] # (Auto) 0.3, Eos # (Auto) 0.1, Baso # (Auto) 0.0, Total Counted 100, Neutrophils % (Manual) 88 H, Band Neutrophils % 1.0, Lymphocytes % (Manual) 9 L, Monocytes % (Manual) 2, Platelet Estimate Moderate increase, Anisocytosis 1+, Microcytosis 1+ 12/14/21 13:33: Sodium 140, Potassium 4.3, Chloride 107, Carbon Dioxide 28, Anion Gap 9.3, BUN 8, Creatinine 0.60, Estimated Creat Clear 165, Estimated GFR 104, Est GFR ( Amer) 126, Glucose 99, Calcium 8.5, Total Bilirubin < 0.1 L, AST 28, ALT 20, Alkaline Phosphatase 123, Total Protein 6.5, Albumin 3.8, Globulin 2.7, Albumin/Globulin Ratio 1.4 12/14/21 13:33: PT 10.0 L, INR 0.92 I & O for Last 24 hours: Intake & Output 12/12/21 12/13/21 12/14/21 12/15/21 23:59 23:59 23:59 23:59 Intake Total 1240 / 1240 480 / 480 Output Total 401 / 801 900 / 900 Balance 839 / 439 -420 / -420 Weight 214 lb 11.2 oz Constitutional Constitutional: no acute distress *Routine HEENT Exam Head: Present normocephalic Eye: Present EOMI ENT: Present mucous membranes moist *Routine Neck Exam Neck: Present supple *Routine Respiratory Exam Respiratory: Present CTA bilaterally; Absent accessory muscle use, respiratory distress, stridor, wheezes or crackles *Routine Cardiovascular Exam Cardiovascular: Present RRR *Routine Abdominal Exam Abdominal: Present soft *Routine Rectal Exam Rectal:: deferred *Routine Genitalia Exam Genitalia:: deferred *Routine Extremities Exam Extremities: Absent cyanosis *Routine Skin Exam Skin: Absent cyanosis or jaundice *Routine Neurological Exam Neurological: Present alert and oriented X3 Meds Home Medications and Allergies Home Medications Medication Instructions Recorded Confirmed Type asp
--- NOTE | 2021-12-15 09:44 | EXP.PULM.PN ---
Subjective *Date: 12/16/21 *Time: 14:35 Interval history: No acute respiratory vents overnight. Admits continued improvement in her symptoms. Pulmonology Exam Inpatient Vital signs and Labs for Last 24 Hours: Temp Pulse Resp BP Pulse Ox 98.1 F 78 18 159/88 H 98 12/15/21 08:00 12/15/21 08:00 12/15/21 08:00 12/15/21 08:00 12/15/21 08:00 Laboratory Results - last 24 hr 12/14/21 13:33: WBC 16.8 H D, RBC 3.70 L, Hgb 12.1 L, Hct 38.2, MCV 103.1 H, MCH 32.6 H, MCHC 31.6 L, RDW 13.7, Plt Count 569 H, MPV 8.0, Neut % (Auto) 92.4 H, Lymph % (Auto) 5.2 L, [place] % (Auto) 1.7, Eos % (Auto) 0.5, Baso % (Auto) 0.2, Neut # (Auto) 15.5 H, Lymph # (Auto) 0.9, [place] # (Auto) 0.3, Eos # (Auto) 0.1, Baso # (Auto) 0.0, Total Counted 100, Neutrophils % (Manual) 88 H, Band Neutrophils % 1.0, Lymphocytes % (Manual) 9 L, Monocytes % (Manual) 2, Platelet Estimate Moderate increase, Anisocytosis 1+, Microcytosis 1+ 12/14/21 13:33: Sodium 140, Potassium 4.3, Chloride 107, Carbon Dioxide 28, Anion Gap 9.3, BUN 8, Creatinine 0.60, Estimated Creat Clear 165, Estimated GFR 104, Est GFR ( Amer) 126, Glucose 99, Calcium 8.5, Total Bilirubin < 0.1 L, AST 28, ALT 20, Alkaline Phosphatase 123, Total Protein 6.5, Albumin 3.8, Globulin 2.7, Albumin/Globulin Ratio 1.4 12/14/21 13:33: PT 10.0 L, INR 0.92 I & O for Labs for Last 24 Hours: Intake & Output 12/12/21 12/13/21 12/14/21 12/15/21 23:59 23:59 23:59 23:59 Intake Total 1240 / 1240 480 / 480 Output Total 401 / 801 900 / 900 Balance 839 / 439 -420 / -420 Weight 214 lb 11.2 oz Head: normocephalic and atraumatic ENT: normal exam and normal oropharynx Neck: normal inspection and full ROM Respiratory: wheezes, crackles, distant breath sounds, diminished air movement and able to speak in complete sentences Cardiac: S1/S2 and Tachycardia GI: soft, distention, tenderness or guarding Rectal (female): deferred (female): deferred Skin: intact, cyanosis or jaundice Neuro: alert, awake and oriented x 3 Extremities: normal inspection, clubbing or cyanosis Psychiatric: normal affect and cooperative Assessment and Plan *Assessment and plan (1) COPD (chronic obstructive pulmonary disease): Status: Chronic Qualifiers: COPD type: unspecified COPD Qualified Code(s): J44.9 - Chronic obstructive pulmonary disease, unspecified Category: Medical Code(s): J44.9 - Chronic obstructive pulmonary disease, unspecified (2) Acute respiratory failure with hypoxia: Status: Acute Category: Medical Code(s): J96.01 - Acute respiratory failure with hypoxia Plan #Acute hypoxic respiratory failure: Ms. Zapata is a 56-year-old female current smoker greater than 78-[id number] smoking History of COPD on Symbicort along with Albuterol Every 6 Hours on As-Needed basis Show Sleep Apnea CPAP That Presented for an Elective Procedure Which Is Complicated by Likely Oral/Nasal Bleeding Followed by Needing Intubation and Mechanical Ventilator Support Successfully Extubated Needing New Oxygen Requirements and Pulmonary Was Called for Further Evaluation. Chest X-Ray While Intubated No Acute Pulmonary Infiltrates, Right Mainstem Intubation. On examination patient does not appear to be in any respiratory distress. Bilateral clear breath sounds. Reported that his breath sounds improved after nebulization therapies. On 2 L nasal cannula saturating 90 to 91%. Does not appear to be any respiratory distress. Denies any recent worsening respiratory distress/cough/productive phlegm. Denies any prior episodes of oral bleeding. Admits recurrent episodes of epistaxis. Interval update:-Significant improvement in her respiratory status. On room air saturating 92% above. Ready to be discharged. No episodes of hemoptysis. Admits family history of nosebleeds in her mom Plan: -Continue home inhaler therapy including Symbicort scheduled along with albuterol on as-needed basis Continue incentive sp
--- NOTE | 2021-12-15 10:14 | PC.NURSE ---
pt was discharged with walking boot. dressing to the right foot was changed this morning per podiatry. pt refused to take polar pack b/c she already had one at home. pt will follow up with and
--- NOTE | 2021-12-16 13:36 | CARE MANAGER ---
Contacted patient related to hospital discharge. Patient states she is doing well other than her throat hurting. She did get a spray and pain medication for it, but it is still bothering her. She denies any questions or concerns. ORESTES Barbosa
== END 2021-12-15 10:18 | disposition home or self-care (01) ==
LOC: 2ND 11:58
PROVIDERS: Internal Medicine Pulmonary Disease; Podiatrist; Admitting Provider Family Medicine; PCP Emergency Medicine; Visit Provider Emergency Medicine
PROC: (CPT 29894; principal; 2021-12-14 08:30)
DX: M25.371 Other instability, right ankle (principal); M96.810 Intraoperative hemorrhage and hematoma of a musculoskeletal structure complicating a musculoskeletal system procedure; J44.9 Chronic obstructive pulmonary disease, unspecified; J96.01 Acute respiratory failure with hypoxia; M25.471 Effusion, right ankle; M25.571 Pain in right ankle and joints of right foot; I48.91 Unspecified atrial fibrillation; I25.10 Atherosclerotic heart disease of native coronary artery without angina pectoris; I10 Essential (primary) hypertension; F17.210 Nicotine dependence, cigarettes, uncomplicated; M76.821 Posterior tibial tendinitis, right leg; M19.071 Primary osteoarthritis, right ankle and foot; S82.64XA Nondisplaced fracture of lateral malleolus of right fibula, initial encounter for closed fracture; W01.0XXA Fall on same level from slipping, tripping and stumbling without subsequent striking against object, initial encounter; Y92.231 Patient bathroom in hospital as the place of occurrence of the external cause; Z79.899 Other long term (current) drug therapy; Y83.4 Other reconstructive surgery as the cause of abnormal reaction of the patient, or of later complication, without mention of misadventure at the time of the procedure
CPT/HCPCS: 29894; 29891; 71045; 73610; 80053; 85007; 85025; 85610; 87070; 87205; 94640; G0378

== ENCOUNTER → 2022-06-15 07:00 | Outpatient (CLI) | payer OTHER, SELFPAY | PROVIDERS: PCP Emergency Medicine; Visit Provider Nurse Practitioner | DX: R00.2 Palpitations (principal); I48.0 Paroxysmal atrial fibrillation; I10 Essential (primary) hypertension | CPT/HCPCS: 93270 ==

== ENCOUNTER → 2022-08-21 09:00 | Outpatient (CLI) | payer OTHER, SELFPAY ==
[2022-08-21 16:49] LABS: Amphetamine/Metha Screen,Urine Negative ng/ml (<1000)
[2022-08-21 16:50] LABS: Barbiturates Screen,Urine Negative ng/ml (<200)
[2022-08-21 16:52] LABS: Benzodiazepines Screen,Urine Negative ng/ml (<200)
[2022-08-21 16:53] LABS: Cannabinoid Screen,Urine Positive ng/ml (<50); Cocaine Screen,Urine Negative ng/ml (<300)
[2022-08-21 16:54] LABS: Methadone Screen,Urine Negative ng/ml (<300); Opiate Screen,Urine Positive ng/ml (<300)
[2022-08-21 16:55] LABS: Phencyclidine Screen,Urine Negative ng/ml (<25)
== END ==
PROVIDERS: PCP Emergency Medicine; Visit Provider Emergency Medicine
DX: Z79.899 Other long term (current) drug therapy (principal)
CPT/HCPCS: 80305

== ENCOUNTER → 2022-10-17 16:08 | Outpatient (CLI) | payer OTHER, SELFPAY ==
[2022-10-17 17:34] LABS: Amphetamine/Metha Screen,Urine Negative ng/ml (<1000)
[2022-10-17 17:35] LABS: Barbiturates Screen,Urine Negative ng/ml (<200)
[2022-10-17 17:36] LABS: Benzodiazepines Screen,Urine Negative ng/ml (<200); Cannabinoid Screen,Urine Positive ng/ml (<50)
[2022-10-17 17:38] LABS: Cocaine Screen,Urine Negative ng/ml (<300); Methadone Screen,Urine Negative ng/ml (<300)
[2022-10-17 17:39] LABS: Opiate Screen,Urine Positive ng/ml (<300); Phencyclidine Screen,Urine Negative ng/ml (<25)
== END ==
PROVIDERS: PCP Emergency Medicine; Visit Provider Emergency Medicine
DX: Z79.899 Other long term (current) drug therapy (principal)
CPT/HCPCS: 80305

== ENCOUNTER → 2022-10-18 08:29 | Outpatient (CLI) | payer OTHER, SELFPAY ==
--- NOTE | 2022-10-18 08:30 | US_ITS ---
PROCEDURE: US TRANSVAGINAL CLINICAL INDICATION: pelvic pain COMPARISON: No exams were available for comparison FINDINGS: Transvaginal sonographic images of the pelvis were obtained. UTERUS: 7cm x 3cmx 2cm with a combined endometrial thickness of 5.6mm. The endometrium itself appears very thin. There is a fluid filled area within the endometrial cavity. It measures 1.8 cm x 0.6 cm. There is an anterior fibroid measuring 1.2 cm x 0.9 cm x 0.7 cm LEFT OVARY: [id number] with a volume of 1.4ml. RIGHT OVARY: 2cmx [id number] with a volume of 0.7ml. There is a 1 cm cystic area superior to the right ovary. Both ovaries are seen and appear normal. They both appear atrophic. Doppler flow to both ovaries are seen. There is no fluid in the cul-de-sac. IMPRESSION: 1. Anteverted uterus with a thin endometrium. 2. Fluid filled endometrial cavity measuring 1.8 cm x 0.6 cm. 3. Anterior 1.2 cm uterine fibroid. 4. Both ovaries appear atrophic. Dictated by: Xander Marley MD 10/18/2022 19:21 Xander Marley MD in [place] 10/18/2022 19:21
== END ==
PROVIDERS: PCP Emergency Medicine; Visit Provider Obstetrics & Gynecology
DX: R10.2 Pelvic and perineal pain (principal)
CPT/HCPCS: 76830

== ENCOUNTER → 2022-11-01 08:31 | Outpatient (CLI) | payer OTHER, SELFPAY ==
--- NOTE | 2022-11-01 08:31 | CT_ITS ---
FINAL REPORT TECHNIQUE: Oral and IV contrast enhanced exam CLINICAL HISTORY: pelvic pain / abdominal pain COMPARISON: None FINDINGS: Abdomen: No acute density is seen within the lung bases. The gallbladder is surgically absent. Solid abdominal organs are unremarkable. There is a left adrenal nodule, measuring 22 x 14 mm. The mesenteric vessels are patent. No bowel obstruction is present. There is no free air. No fluid collection is seen. There is no adenopathy. Pelvis: The appendix is normal. Tubal ligation clips are noted in the pelvis. There is a small uterus obscured by adjacent bowel gas. No bowel wall thickening is present. There is no free fluid. No pelvic mass is seen. IMPRESSION: No acute abnormality identified in the abdomen or pelvis. Left adrenal nodule, 22 x 14 mm, would suggest follow-up with adrenal mass protocol CT or MRI. Reviewed, Interpreted and Dictated by Donita Bhatt MD Transcribed by Rebeca Shay Authenticated and [facility]
[2022-11-01 08:54] LABS: Blood Urea Nitrogen 11 mg/dl (7-17); Estimated Glomerular Filt Rate 87 ml/min (>60); GFR (African American) 105 ML/MIN (>60)
== END ==
PROVIDERS: PCP Emergency Medicine; Visit Provider Physician Assistant
DX: R10.2 Pelvic and perineal pain (principal); R10.9 Unspecified abdominal pain
CPT/HCPCS: 36415; 74177; 82565; 84520; Q9967

== ENCOUNTER → 2022-11-14 07:31 | Outpatient (CLI) | payer OTHER, SELFPAY ==
--- NOTE | 2022-11-14 07:31 | MR_ITS ---
FINAL REPORT CLINICAL HISTORY: adrenal mass bilateral , shown on ct scan x 3 week ago frequent urination x few months COMPARISON: CT dated November 01, 2022 FINDINGS: Multiplanar MR imaging of the abdomen was performed without contrast. There are 3 less than 1 cm well-corticated hepatic lesions. 2 are in the anterior liver dome and one is in the medial aspect of the left lobe anterior to the gallbladder fossa. On CT these do not have the typical appearance of cysts and may represent small hemangiomas or other masses. There is no evidence of biliary ductal dilatation. There has been cholecystectomy. There is a 22 mm left adrenal nodule that demonstrates significant signal loss on out of phase imaging consistent with an adenoma. The remainder of the abdomen is without acute abnormality. IMPRESSION: Subcentimeter hepatic masses may represent small hemangiomas or other masses. Consider follow-up MRI without and with contrast in 3-6 months. Left adrenal adenoma. Reviewed, Interpreted and Dictated by Cruzito Balbuena III, MD Transcribed by Ash Santana Authenticated and [facility]
== END ==
PROVIDERS: PCP Emergency Medicine; Visit Provider Emergency Medicine
DX: E27.8 Other specified disorders of adrenal gland (principal)
CPT/HCPCS: 74181

== ENCOUNTER → 2022-12-04 07:24 | Outpatient (CLI) | payer OTHER, SELFPAY ==
--- NOTE | 2022-12-04 07:30 | MR_ITS ---
FINAL REPORT CLINICAL HISTORY: adrenal mass bilateral shown on CT scan, liver mass. f/u mri and ct COMPARISON: 11/14/2022, 11/01/2022 FINDINGS: Multiplanar MR imaging of the abdomen was performed without and with contrast. There are several subcentimeter hepatic masses with high-grade signal intensity seen on axial T2 imaging. Foci are predominantly within the right hepatic lobe best seen on image 9 of series 9 and image 17 of series 9. These are stable from prior exam. Masses are not well seen on T1-weighted imaging. There is no definite enhancement. There is no evidence of biliary ductal dilatation. The gallbladder has an unremarkable appearance. No other mass or adenopathy is identified. No abnormal fluid collection is seen. No abnormal contrast enhancement is seen on the postcontrast images. IMPRESSION: Subcentimeter high signal intensity foci hepatic masses, difficult to characterize due to size but without definite enhancement. Recommend 6-12 month follow-up liver mass protocol MRI for further evaluation. Reviewed, Interpreted and Dictated by Jc Agee MD Transcribed by Mary Kay Lloyd Authenticated and . [facility]
== END ==
PROVIDERS: PCP Emergency Medicine; Visit Provider Emergency Medicine
DX: E27.8 Other specified disorders of adrenal gland (principal); R16.0 Hepatomegaly, not elsewhere classified
CPT/HCPCS: 74183; A9576

== ENCOUNTER → 2022-12-14 16:43 | Outpatient (CLI) | payer OTHER, SELFPAY ==
[2022-12-14 15:29] LABS: Amphetamine/Metha Screen,Urine Negative ng/ml (<1000)
[2022-12-14 15:31] LABS: Cannabinoid Screen,Urine Positive ng/ml (<50)
[2022-12-14 15:32] LABS: Barbiturates Screen,Urine Negative ng/ml (<200)
[2022-12-14 15:33] LABS: Benzodiazepines Screen,Urine Negative ng/ml (<200); Opiate Screen,Urine Positive ng/ml (<300)
[2022-12-14 15:34] LABS: Cocaine Screen,Urine Negative ng/ml (<300); Methadone Screen,Urine Negative ng/ml (<300)
[2022-12-14 15:35] LABS: Phencyclidine Screen,Urine Negative ng/ml (<25)
== END ==
PROVIDERS: PCP Emergency Medicine; Visit Provider Emergency Medicine
DX: Z79.899 Other long term (current) drug therapy (principal)
CPT/HCPCS: 80305

== ENCOUNTER → 2022-12-20 08:22 | Outpatient (CLI) | payer OTHER, SELFPAY ==
[2022-12-01 14:53] LABS: Blood Urea Nitrogen 10 mg/dl (7-17); Estimated Glomerular Filt Rate 87 ml/min (>60); GFR (African American) 105 ML/MIN (>60)
== END ==
PROVIDERS: PCP Emergency Medicine; Visit Provider Emergency Medicine
DX: N28.9 Disorder of kidney and ureter, unspecified (principal)
CPT/HCPCS: 36415; 82565; 84520

== ENCOUNTER 2023-01-02 08:39 | Day surgery (SDC) | payer OTHER, SELFPAY ==
--- NOTE | 2022-12-25 11:51 | SUR.PREOP ---
Pt called this morning to say having a colonoscopy on 01/02/23 and can't have anesthesia because she on the table and was intubated last time she had surgery. Consulted khadijah Peters CRNA who reviewed history and said that from documentation there was no reaction to anesthesia, the reason for being intubed was d/t coughing up blood in the procedure. CABBAGE SALTER cleared pt to have colonoscopy. TC to pt to inform and said ok.
[2022-12-28 12:07] VITALS: BMI 34.7
[2023-01-02 09:12] VITALS: BP 116/73; PULSE 75; RESP 18; TEMP 36.8; O2SAT 98
--- NOTE | 2023-01-02 09:29 | EXP.ANES.CKL ---
[facility] Disclaimer: The information contained in this section may have been updated after the patient was seen, as this information can be updated by other users. Medical History A-fib Abnormal EKG Acute respiratory failure with hypoxia Allergic rhinitis Allergies Anxiety CAD (coronary artery disease) Calcaneal spur of both feet delivery delivered Chest pain Claudication COPD (chronic obstructive pulmonary disease) COPD (chronic obstructive pulmonary disease) COPD mixed type Dehydration Depressed Dyspnea Dyspnea Dyspnea on exertion Encounter for laboratory testing for COVID-19 virus Family history of asthma GERD (gastroesophageal reflux disease) HTN (hypertension) Hyperlipidemia Left anterior knee pain Left knee sprain Lesion of lip This lesion came up fairly suddenly and is in an area of sun exposure. This is also an area where her she keeps her cigarettes when smoking. Palpitation Patient left without being seen Pelvic pain Plantar fasciitis, right Pre-op evaluation Screening for lung cancer Sinusitis Sleep apnea Smoking greater than 30 pack years Sprain of anterior talofibular ligament of left ankle Tinea pedis of right foot Unstable angina pectoris Varicose veins of both legs with edema Viral syndrome Surgical History H/O removal of cyst H/O tubal ligation History of carpal tunnel release History of cholecystectomy Family History Other Family history of cancer Family history of myocardial infarction Social History Smoking Status: Current every day smoker tobacco type: cigarettes packs per day: 1 alcohol intake: never counseling provided: provider counseling substance use type: denies use current occupational status: unemployed Travel in the last 8 weeks: None household members: family housing: house 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 current occupational exposures/hazards: No caffeine: Yes [facility] Anesthesia Checklist Patient Identification Patient Identification: Arm Band Structural Data Admitted From: Home Planned Operative Procedure/s: colonoscopy Consent for Planned Operative Procedure(s) Verified: Yes Verified Documents: Surgical Consent and History and Physical NPO Status Verified Time NPO: 00:00 Additional verifications Anesthesia Reactions: No Hx Blood Transfusions: No Blood Transfusion Reaction: No Airway Assessment Mallampati Score:: Class II C-Spine Mobility Assessed: Yes TMJ Mobility Assessed: Yes Dentition: Dentures-good fit Neurological Assessment Level of Consciousness: Awake and Alert Anesthesia Plan Anesthesia Risk discussed: Yes Anesthesia Plan: Verified ASA Class: III Anesthesia Type: MAC Preoperative Comments Pre-Operative Comments: pt required intubation during podiatry procedure ~1 year ago. She then began coughing up blood through ETT. Surgery was then cancelled and pt admitted for observation. Discussed anesthesia plan with pt and she verbalized understanding
--- NOTE | 2023-01-02 09:58 | P.PCN_ITS ---
Procedure: Date: 01/02/23 Patient Date of :: 1965 Procedure Performed:: Colonoscopy with polypectomy Indications:: History of colon polyps Performing Provider:: Demarco Guerra MD Referring Provider:: . Sedation:: Monitored anesthesia care Procedure:: After informed consent was obtained the patient was taken to the endoscopy suite. Sedation ensued after the patient was transferred to the left lateral d ecubitus position. Pulse, blood pressure, and oxygen saturation were monitored throughout the procedure. Digital rectal exam revealed no significant abnormality. The colonoscope was placed in position. The entire colon was evaluated. The colonoscope was carefully removed and the patient was transferred to recovery in stable condition. Please see findings and specimens below for detail. Findings:: Bowel preparation poor Complex polyps (see specimens) Specimens:: Large complex pedunculated polyp at 70 cm (hot snare) Sessile lobulated polyp at 75 cm (hot snare) Recommendations:: Timing of repeat colonoscopy is pending pathology but likely be with in 3-6 months with extended bowel preparation secondary to limitations in visualization due to poor bowel preparation and size/nature of polyps. Complications:: Poor bowel preparation Estimated blood obtained (mL): 1 Colonoscopy Component Colonoscopy Component Was a colonoscopy performed during today's procedure?: Yes Recommended follow up colonoscopy of at least 10 years?: No If no, follow up colonoscopy recommended in ___ years?: (See above) Reason for not recommending >/= 10 yr follow-up interval?: (See above)
[2023-01-02 10:00] VITALS: BP 116/72; PULSE 76; RESP 16; TEMP 36.3; O2SAT 92
[2023-01-02 10:10] VITALS: BP 111/71; PULSE 75; RESP 16; O2SAT 93
[2023-01-02 10:20] VITALS: BP 113/69; PULSE 73; RESP 16; O2SAT 96
[2023-01-02 10:30] VITALS: BP 134/92; PULSE 71; RESP 16; TEMP 36.6; O2SAT 93
== END 2023-01-02 10:30 | disposition home or self-care (01) ==
PROVIDERS: PCP Emergency Medicine; Visit Provider Surgery
PROC: 0DJD8ZZ Inspection of Lower Intestinal Tract, Via Natural or Artificial Opening Endoscopic (ICD-10-PCS; CPT 45385; principal; 2023-01-02 09:30)
DX: Z12.11 Encounter for screening for malignant neoplasm of colon (principal); Z86.010 Personal history of colon polyps; Z91.199 Patient's noncompliance with other medical treatment and regimen due to unspecified reason; D12.4 Benign neoplasm of descending colon
CPT/HCPCS: 45385

== ENCOUNTER → 2023-02-09 08:42 | Outpatient (CLI) | payer OTHER, SELFPAY ==
[2023-02-09 15:36] LABS: Amphetamine/Metha Screen,Urine Negative ng/ml (<1000); Barbiturates Screen,Urine Negative ng/ml (<200)
[2023-02-09 15:37] LABS: Benzodiazepines Screen,Urine Negative ng/ml (<200); Cannabinoid Screen,Urine Positive ng/ml (<50)
[2023-02-09 15:38] LABS: Cocaine Screen,Urine Positive ng/ml (<300)
[2023-02-09 15:40] LABS: Methadone Screen,Urine Negative ng/ml (<300)
[2023-02-09 15:41] LABS: Opiate Screen,Urine Positive ng/ml (<300); Phencyclidine Screen,Urine Negative ng/ml (<25)
== END ==
PROVIDERS: PCP Emergency Medicine; Visit Provider Emergency Medicine
DX: Z79.899 Other long term (current) drug therapy (principal)
CPT/HCPCS: 80305

== ENCOUNTER → 2023-02-13 10:20 | Outpatient (CLI) | payer OTHER, SELFPAY ==
--- NOTE | 2023-02-13 10:20 | US_ITS ---
PROCEDURE: US TRANSVAGINAL CLINICAL INDICATION: following up to fibroid uterus COMPARISON: No exams were available for comparison FINDINGS: Transvaginal sonographic images of the pelvis were obtained. UTERUS: 4.9 cm x 3.0 cmx 2.2 cm with a thin endometrium less than 2 mm. There is fluid in the endometrial cavity. The uterus is anteverted and anteflexed. There is a small nabothian cyst in the cervix. There is a small anterior fibroid measuring 0.7 cm x 0.7 cm x 0.6 cm. LEFT OVARY: Not visualized RIGHT OVARY: Not visualized Both ovaries are not seen. There is no fluid in the cul-de-sac. IMPRESSION: 1. Anteverted, anteflexed small uterus. 2. The endometrium is thin and there is fluid within the endometrial cavity. 3. A small 0.7 cm fibroid is located in the fundus of the uterus. 4. The ovaries could not be visualized. 5. No fluid in the cul-de-sac. Dictated by: Xander Marley MD 02/14/2023 07:42 Xander Marley MD in [place] 02/14/2023 07:42
== END ==
PROVIDERS: PCP Emergency Medicine; Visit Provider Obstetrics & Gynecology
DX: D25.9 Leiomyoma of uterus, unspecified (principal)
CPT/HCPCS: 76830

== ENCOUNTER → 2023-02-15 12:00 | Outpatient (CLI) | payer OTHER, SELFPAY ==
[2023-02-15 23:41] LABS: Amphetamine/Metha Screen,Urine Negative ng/ml (<1000)
[2023-02-15 23:42] LABS: Barbiturates Screen,Urine Negative ng/ml (<200)
[2023-02-15 23:43] LABS: Benzodiazepines Screen,Urine Negative ng/ml (<200); Phencyclidine Screen,Urine Negative ng/ml (<25)
[2023-02-15 23:44] LABS: Opiate Screen,Urine Positive ng/ml (<300)
[2023-02-15 23:46] LABS: Cannabinoid Screen,Urine Positive ng/ml (<50)
[2023-02-15 23:47] LABS: Cocaine Screen,Urine Negative ng/ml (<300)
[2023-02-15 23:48] LABS: Methadone Screen,Urine Negative ng/ml (<300)
== END ==
PROVIDERS: PCP Emergency Medicine; Visit Provider Emergency Medicine
DX: Z79.899 Other long term (current) drug therapy (principal)
CPT/HCPCS: 80305

== ENCOUNTER → 2023-04-04 23:27 | Outpatient (CLI) | payer OTHER, SELFPAY ==
[2023-04-04 17:29] LABS: Amphetamine/Metha Screen,Urine Negative ng/ml (<1000); Barbiturates Screen,Urine Negative ng/ml (<200)
[2023-04-04 17:31] LABS: Benzodiazepines Screen,Urine Negative ng/ml (<200); Cannabinoid Screen,Urine Positive ng/ml (<50)
[2023-04-04 17:32] LABS: Cocaine Screen,Urine Negative ng/ml (<300)
[2023-04-04 17:33] LABS: Methadone Screen,Urine Negative ng/ml (<300); Opiate Screen,Urine Positive ng/ml (<300)
[2023-04-04 17:34] LABS: Phencyclidine Screen,Urine Negative ng/ml (<25)
[2023-04-16 18:07] LABS: Alprazolam Negative (Cutoff=100); Benzodiazepines Negative ng/mL (Cutoff=100); Clonazepam Negative (Cutoff=100); Flurazepam Negative (Cutoff=100); Lorazepam Negative (Cutoff=100); Midazolam Negative (Cutoff=100); Temazepam Negative (Cutoff=100); Triazolam Negative (Cutoff=100)
== END ==
LOC: LAB.DROPOF 23:28
PROVIDERS: PCP Nurse Practitioner Family; Visit Provider Nurse Practitioner Family
DX: M51.36 Other intervertebral disc degeneration, lumbar region (principal); Z79.899 Other long term (current) drug therapy
CPT/HCPCS: 80307; 80346

== ENCOUNTER 2023-04-17 11:44 | Outpatient (CLI) | payer OTHER, SELFPAY ==
[2023-04-17 14:00] LABS: Amphetamine/Metha Screen,Urine Negative ng/ml (<1000); Barbiturates Screen,Urine Negative ng/ml (<200); Benzodiazepines Screen,Urine Negative ng/ml (<200); Cannabinoid Screen,Urine Positive ng/ml (<50); Cocaine Screen,Urine Negative ng/ml (<300); Methadone Screen,Urine Negative ng/ml (<300); Opiate Screen,Urine Positive ng/ml (<300); Phencyclidine Screen,Urine Negative ng/ml (<25)
[2023-04-21 15:56] LABS: Gabapentin,Urine 265.7 ug/mL (.)
[2023-04-23 06:39] LABS: Alprazolam Negative (Cutoff=100); Benzodiazepines Negative ng/mL (Cutoff=100); Clonazepam Negative (Cutoff=100); Codeine Negative (Cutoff=100); Flurazepam Negative (Cutoff=100); Hydrocodone Positive (.); Hydromorphone Positive (.); Lorazepam Negative (Cutoff=100); Midazolam Negative (Cutoff=100); Morphine Negative (Cutoff=100); Opiates Positive (.); Temazepam Negative (Cutoff=100); Triazolam Negative (Cutoff=100)
== END 2023-04-17 23:59 ==
LOC: LAB.DROPOF 11:44
PROVIDERS: PCP Nurse Practitioner Family; Visit Provider Nurse Practitioner Family
DX: Z79.899 Other long term (current) drug therapy (principal)
CPT/HCPCS: 80307; 80346; 80361; 80365; G0480

== ENCOUNTER 2023-05-01 12:06 | Outpatient (CLI) | payer OTHER, SELFPAY ==
[2023-05-01 13:07] LABS: Amphetamine/Metha Screen,Urine Negative ng/ml (<1000); Barbiturates Screen,Urine Negative ng/ml (<200)
[2023-05-01 13:08] LABS: Benzodiazepines Screen,Urine Negative ng/ml (<200); Cannabinoid Screen,Urine Positive ng/ml (<50)
[2023-05-01 13:09] LABS: Opiate Screen,Urine Positive ng/ml (<300)
[2023-05-01 13:10] LABS: Cocaine Screen,Urine Negative ng/ml (<300); Methadone Screen,Urine Negative ng/ml (<300)
[2023-05-01 13:11] LABS: Phencyclidine Screen,Urine Negative ng/ml (<25)
== END 2023-05-01 23:59 ==
LOC: LAB.DROPOF 12:06
PROVIDERS: PCP Nurse Practitioner Family; Visit Provider Nurse Practitioner Family
DX: Z79.899 Other long term (current) drug therapy (principal)
CPT/HCPCS: 80307

== ENCOUNTER 2023-05-10 10:33 | Outpatient (CLI) | payer OTHER, SELFPAY ==
--- NOTE | 2023-05-10 10:34 | MR_ITS ---
FINAL REPORT TECHNIQUE: Multiplanar MR without contrast CLINICAL HISTORY: Chronic Low Back Pain. NKI COMPARISON: 01/01/2018 FINDINGS: Sagittal images show normal vertebral height. Alignment is normal. Marrow signal pattern is unremarkable. L1-2: Minimal annular disc bulge. L2-3: Mild annular disc bulge. L3-4: Mild annular disc bulge. L4-5: Moderate annular disc bulge and mild facet arthropathy. Moderate central canal stenosis, slightly worse. There is mild bilateral neural foraminal narrowing. L5-S1: Moderate annular disc bulge, asymmetric to the right. This is worse since prior. There is moderate right lateral recess stenosis with mass effect on the right S1 nerve root. Severe right neural foraminal narrowing is worse. There is moderate left neural foraminal narrowing. IMPRESSION: Progressive disc disease in the lower lumbar spine. Reviewed, Interpreted and Dictated by Donita Bhatt MD Transcribed by Ninfa Powell Authenticated and [facility]
== END 2023-05-10 23:59 ==
LOC: RAD 10:34
PROVIDERS: PCP Nurse Practitioner Family; Visit Provider Nurse Practitioner Family
DX: M51.36 Other intervertebral disc degeneration, lumbar region (principal); M99.83 Other biomechanical lesions of lumbar region
CPT/HCPCS: 72148; 76376

== ENCOUNTER 2024-01-02 11:20 | Outpatient (CLI) | payer OTHER, SELFPAY ==
[2024-01-02 11:15] LABS: Influenza A, PCR Not Detected (NotDetected); Influenza B, PCR Not Detected (NotDetected)
[2024-01-02 11:32] LABS: Basophils # 0.1 K/mm3 (0-0.2); Basophils % 1.1 % (0.1-2.0); Eosinophils % 0.5 % (0.1-12.0); Hematocrit 43.6 % (37.0-47.0); Lymphocytes % 15.4 % (10-50); Mean Corpuscular HGB Conc 32.1 g/dL (31.8-35.4); Mean Corpuscular Hemoglobin 32.7 pg (27.0-31.2); Mean Corpuscular Volume 101.6 fl (81-99); Mean Platelet Volume 8.2 fl (7.4-10.4); Monocytes # 0.8 K/mm3 (0.1-1.0); Monocytes % 13.1 % (1.7-9.3); Neutrophils # 4.4 K/mm3 (1.8-7.8); Neutrophils % 69.8 % (37.0-80.0); Platelet Count 387 K/mm3 (142-424); Red Blood Count 4.29 M/mm3 (4.20-5.40); Red Cell Distribution Width 13.3 % (11.5-17.5); White Blood Count 6.3 K/mm3 (4.8-10.8)
[2024-01-02 11:57] LABS: Alanine Aminotransferase 18 U/L (12-78); Albumin Level 4.1 g/dl (3.5-5.0); Albumin/Globulin Ratio 1.6 (1.1-1.8); Alkaline Phosphatase 96 U/L (38-126); Anion Gap 11.8 mEq/L (5-15); Aspartate Amino Transferase 27 U/L (14-36); Bilirubin,Total 0.3 mg/dl (0.2-1.3); Blood Urea Nitrogen 8 mg/dl (7-17); Calcium 9.5 mg/dl (8.4-10.2); Carbon Dioxide 22 mmol/L (22.0-30.0); Chloride 99 mmol/L (98-107); Estimated Glomerular Filt Rate 103 ml/min (>60); GFR (African American) 125 ML/MIN (>60); Globulin 2.6 g/dL (1.3-3.2); Glucose 94 mg/dl (74-100); Potassium 4.8 mmoL/L (3.5-5.1); Sodium 128 mmol/L (136-145); Total Protein,Serum 6.7 g/dl (6.3-8.2)
[2024-01-02 12:00] LABS: Coronavirus 19, PCR Detected (NotDetected)
[2024-01-04 11:15] LABS: Peripheral Smear Review Scanned Result
== END 2024-01-02 23:59 | disposition home or self-care (01) ==
LOC: LAB.DROPOF 11:20
PROVIDERS: PCP Internal Medicine; Visit Provider Internal Medicine
DX: I25.10 Atherosclerotic heart disease of native coronary artery without angina pectoris (principal); J98.8 Other specified respiratory disorders; Z72.0 Tobacco use; J06.9 Acute upper respiratory infection, unspecified
CPT/HCPCS: 80053; 85025; 87636

== ENCOUNTER 2024-01-29 08:48 | Outpatient (CLI) | payer OTHER, SELFPAY ==
--- NOTE | 2024-01-29 08:53 | CT_ITS ---
FINAL REPORT CLINICAL HISTORY: lung cancer screening CURRENT SMOKER 1/2PPD X45 YEARS FINDINGS: Axial images were obtained from the lung apex to the mid abdomen by computed tomography. Low-dose protocol was utilized. CTDl vol(mGy): 2.90 DLP (mGy-cm): 108.38 FINDINGS: There is no axillary adenopathy. There is no hilar or mediastinal adenopathy. The heart size is normal. There is no pericardial or pleural effusion. Limited images of the upper abdomen are unremarkable. Lung window images demonstrate a 16 mm groundglass opacity in the left upper lobe well-seen on image 16 of series 3. There is an 8 mm noncalcified nodule in the posterior left upper lobe with a satellite 4 mm noncalcified nodule. These are best seen on image 16 of series 3 on image 19 of series 3. There are subtle areas of groundglass opacity throughout both upper and lower lobes which are more diffuse. IMPRESSION: Bilateral groundglass opacities. Lung RADS category 0. Recommend 1-2 month follow-up low-dose chest CT. Reviewed, Interpreted and Dictated by Jc Agee MD Transcribed by Sabi Vega Authenticated and [facility]
== END 2024-01-29 23:59 | disposition home or self-care (01) ==
LOC: RAD 08:49
PROVIDERS: PCP Nurse Practitioner Family; Visit Provider Internal Medicine
DX: J44.9 Chronic obstructive pulmonary disease, unspecified (principal); F17.210 Nicotine dependence, cigarettes, uncomplicated
CPT/HCPCS: 71271

== ENCOUNTER 2024-10-02 07:55 | Outpatient (CLI) | payer OTHER, SELFPAY ==
--- OUTSIDE RECORDS SUMMARY | 2024-10-02 07:57 | XMS_ITS | Clinical Summary ---
Author Organization Healthcare Address [address] [id number] Care Team Providers Care Disaster Recovery Specialist Name Role Phone Ophelia Little Primary Care Provider [phone] Family History Medical History Relation Name Comments Hypertension Father Hypertension Mother Relation Name Status Comments Father Mother Social History Tobacco Use Types Packs/Day Years Used Date Smoking Tobacco: Every Day Alcohol Use Standard Drinks/Week Comments Yes 0 (1 standard drink = 0.6 oz pure alcohol) Alcoholic Drinks/day: Minimum alcohol consumption Comments Unknown Sex and Gender Information Value Date Recorded Sex Assigned at Not on file Legal Sex Female 7:42 PM EDT Gender Identity Not on file Sexual Orientation Not on file Last Filed Vital Signs Vital Sign Reading Time Taken Comments Blood Pressure - - Pulse - - Temperature - - Respiratory Rate - - Oxygen Saturation - - Inhaled Oxygen Concentration - - Weight 103 kg (227 lb 11.8 oz) 05/27/2018 9:27 A M EST Height 167.6 cm (5' 6 ) 05/27/2018 9:27 AM EST Body Mass Index 36.76 05/27/2018 9:27 AM EST Plan of Treatment Health Maintenance Due Date Last Done Comments [facility]-Depression Screening 1965 [facility]-/Child/Adol SDOH Screenings 1965 [facility]- SDOH Screenings 1984 [facility]-Adult SDOH Screenings 1984 [facility]-DTaP,Tdap,and Td Vaccine s (1 - Tdap) 1985 [facility]-Hepatitis B Vaccines (1 of 3 - 19+ 3-dose series) 1985 [facility]-Pap Smear 06/10/1987 [facility]-Cervical Cancer Screening 1996 [facility]-HPV/Cotest 1996 CT Colonography 06/10/2011 Colonoscopy 06/10/2011 FIT-DNA 06/10/2011 FIT 06/10/2011 FOBT 06/10/2011 Sigmoidoscopy 06/10/2011 [facility]-Colorectal Cancer Screening 06/10/2011 [facility]-Pneumococcal Vaccine: 50 + Years (1 of 1 - PCV) 2016 [facility]-Zoster Vaccines (1 of 2) 2016 [id number] Vaccine (1 - 20 24-25 season) 2023 [facility]-Influenza Vaccine ([place] Ended) 2024 HPV Vaccines Aged Out No longer eligi ble based on patient's age to complete this topic [facility]-HIB Vaccines Aged Out No longer e ligible based on patient's age to complete this topic [facility]-Hepatitis A Vaccines Aged Out No longer eligible based on patient's age to complete this topic [facility]-IPV Vaccines Aged Out No longer e ligible based on patient's age to complete this topic [facility]-Rotavirus Vaccines Aged Out No lo nger eligible based on patient's age to complete this topic Insurance [employer] [facility] MEDICAID Care Teams Disaster Recovery Specialist Relationship Specialty Start Date End Date Ophelia Little DO [address] [place], [place] [id number] PCP - General 08/20/20
--- NOTE | 2024-10-02 08:30 | MM_ITS ---
PROCEDURE INFORMATION: Exam: MG Bilateral Screening 3D Mammography Exam date and time: 10/02/2024 8:14 AM Age: 59 years old Clinical indication: Screening examination TECHNIQUE: Imaging protocol: Bilateral Screening tomosynthesis and 2D mammography including computer-aided detection (CAD) when performed. COMPARISON: 1. MG MM DIG SCREENING MAMM BI W/CAD 01/19/2020 9:29 AM 2. MG MM DIG SCREENING MAMM BI W/CAD 11/27/2018 10:06 AM FINDINGS: MAMMOGRAPHY: Breast composition: There are scattered areas of fibroglandular density. Mass: No suspicious masses. Architectural distortion: None. Calcifications: No suspicious calcifications. Asymmetric density: None. Skin thickening: None. Axillary adenopathy: None. IMPRESSION: No mammographic evidence of malignancy. Annual screening is recommended unless otherwise clinically indicated. ASSESSMENT: BI-RADS Category 1: Negative.
== END 2024-10-02 23:59 | disposition home or self-care (01) ==
LOC: RAD 07:55
PROVIDERS: PCP Nurse Practitioner Family; Visit Provider Nurse Practitioner Family
DX: Z12.31 Encounter for screening mammogram for malignant neoplasm of breast (principal); R92.323 Mammographic fibroglandular density, bilateral breasts
CPT/HCPCS: 77063; 77067

== ENCOUNTER 2025-01-20 10:16 | Outpatient (CLI) | payer OTHER, SELFPAY ==
--- OUTSIDE RECORDS SUMMARY | 2025-01-20 10:19 | XMS_ITS | Clinical Summary ---
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
--- NOTE | 2025-01-20 10:30 | US_ITS ---
FINAL REPORT TECHNIQUE: Complete ankle-brachial indices was obtained. CLINICAL HISTORY: Evaluation of numbness and tingling in lower extre, Smoker, HTN, Leg pain FINDINGS: Right ANTONIA: .95, borderline Left ANTONIA: 1.0, normal IMPRESSION: Borderline ANTONIA on the right. Normal ANTONIA on the left. Reviewed, Interpreted and Dictated by Zeynep Hyman MD Transcribed by Ninfa Powell Authenticated and [facility]
--- NOTE | 2025-01-20 11:00 | CA_ITS ---
FINAL REPORT CLINICAL HISTORY: Leg pain varicosities FINDINGS: DUPLEX VENOUS SONOGRAPHY OF THE BILATERAL LOWER EXTREMITIES Multiple transverse and longitudinal scans were performed of the femoropopliteal deep venous systems, with augmentation and compression maneuvers. Normal phasic flow was noted in the visualized deep venous systems. No intraluminal increased echogenicity is noted to suggest thrombus. There is normal compression and augmentation of the venous structures. No abnormal venous collaterals are seen. IMPRESSION: No evidence of deep venous thrombosis of the bilateral lower extremities. Reviewed, Interpreted and Dictated by Zeynep Hyman MD Transcribed by Ninfa Powell Authenticated and [facility]
== END 2025-01-20 23:59 | disposition home or self-care (01) ==
LOC: RT 10:17
PROVIDERS: PCP Nurse Practitioner Family; Visit Provider Podiatrist
DX: I73.9 Peripheral vascular disease, unspecified (principal); F17.200 Nicotine dependence, unspecified, uncomplicated; R20.0 Anesthesia of skin; R20.2 Paresthesia of skin; M79.661 Pain in right lower leg; M79.662 Pain in left lower leg; R09.89 Other specified symptoms and signs involving the circulatory and respiratory systems
CPT/HCPCS: 93923; 93970